=== PATIENT | female | born 1955 | race Caucasian/White ===

== ENCOUNTER 2016-04-30 06:13 | Inpatient (IN) | payer OTHER ==
[2016-04-30] MEDS ORDERED: SODIUM CHLORIDE 1,000 ML IV SCH (06:30)
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
[2016-04-30 06:43] LABS: BASOPHIL 0.3 % (0-2.0); MCHC 33.5 g/dl (32.0-36.0); MEAN CELL VOLUME 86.6 fl (80-96); MEAN PLT VOLUME 7.5 fl (7.5-11.1); NEUTROPHILS 62.1 % (42.8-82.8); PLATELET COUNT 181 K/MM3 (134-434); RDW 15.6 % (11.6-15.6); WHITE BLOOD COUNT 6.9 K/mm3 (4.0-10.0)
[2016-04-30] MEDS ORDERED: niCARdipine HCL 25 MG/10 ML AMPUL IVPB ONE (06:53)
[2016-04-30] MEDS ORDERED: ATORVASTATIN CA 80 MG TABLET (FP) PO ONE (06:55)
[2016-04-30] MEDS ORDERED: ASPIRIN 325 MG TABLET PO ONE (06:56)
[2016-04-30 06:57] LABS: INR 0.97 (0.82-1.09); PROTHROMBIN TIME (PATIENT) 10.7 SEC (9.98-11.88)
[2016-04-30] MEDS: NICARDIPINE 25 MG in DEXTROSE 5%-WATER - 240 ML IVPB SCH (07:00)
[2016-04-30 07:06] LABS: ALBUMIN 2.5 g/dl (3.4-5.0); BILIRUBIN,TOTAL 0.2 mg/dL (0.2-1.0); CALCIUM 7.7 mg/dL (8.5-10.1); CREATININE 3.1 mg/dL (0.55-1.02); TOT PROT 6.8 g/dl (6.4-8.2); TROPONIN I 0.03 ng/ml (0.00-0.05)
--- NOTE | 2016-04-30 07:41 | PDOC ---
*Physical Exam - Vital Signs Last Vital Signs Temp Pulse Resp BP Pulse Ox 98 H 21 233/107 99 04/30/16 07:09 04/30/16 07:09 04/30/16 07:09 04/30/16 07:09 - Physical Exam Comments: 04/30/16 08:43 CT abdomen and pelvis without contrast Reviewed by: Dr. Demetri Soria Impression: Right pleural effusion and lower lobe atelectasis. Limited study with no evidence of acute pathology within the abdomen or pelvis. <Connor Martinez - Last Filed: 04/30/16 08:42> - Vital Signs Last Vital Signs Temp Pulse Resp BP Pulse Ox 98 H 21 233/107 99 04/30/16 07:09 04/30/16 07:09 04/30/16 07:09 04/30/16 07:09 <Catalina Blackburn - Last Filed: 05/03/16 08:07> ED Treatment Course - LABORATORY CBC & Chemistry Diagram: 04/30/16 06:30 04/30/16 06:30 - ADDITIONAL ORDERS Additional order review: Laboratory Results 04/30/16 04/30/16 04/30/16 08:10 06:30 06:30 INR Sodium 142 Potassium 4.5 Chloride 115 H D Carbon Dioxide 17 L D Anion Gap 10 BUN 45 H D Creatinine 3.1 H D Creat Clearance w eGFR 15.38 POC Glucometer Random Glucose 104 Calcium 7.7 L Total Bilirubin 0.2 D AST 17 D ALT 14 D Alkaline Phosphatase 169 H Creatine Kinase 64 Troponin I 0.03 Total Protein 6.8 Albumin 2.5 L Triglycerides 172 H D Cholesterol 222 H Total LDL Cholesterol 141 H HDL Cholesterol 55 Blood Type O POSITIVE O POSITIVE Antibody Screen Negative Crossmatch See Detail 04/30/16 04/30/16 06:30 06:20 INR 0.97 Sodium Potassium Chloride Carbon Dioxide Anion Gap BUN Creatinine Creat Clearance w eGFR POC Glucometer 127.17829 Random Glucose Calcium Total Bilirubin AST ALT Alkaline Phosphatase Creatine Kinase Troponin I Total Protein Albumin Triglycerides Cholesterol Total LDL Cholesterol HDL Cholesterol Blood Type Antibody Screen Crossmatch 04/30/16 04/30/16 06:30 06:20 RBC 2.94 L D MCV 86.6 MCHC 33.5 RDW 15.6 MPV 7.5 Neutrophils % 62.1 Lymphocytes % 25.3 Monocytes % 8.3 Eosinophils % 4.0 D Basophils % 0.3 POC Glucometer 127.27605 - Medications Given in the ED: ED Medications Discontinued Medications Generic Name Dose Route Start Last Admin Trade Name Freq PRN Reason Stop Dose Admin Aspirin 325 mg 04/30/16 06:56 04/30/16 07:12 Asa - PO 04/30/16 06:57 Not Given ONCE ONE <JuanConnornadia Boonee - Last Filed: 04/30/16 08:42> - LABORATORY CBC & Chemistry Diagram: 05/03/16 05:10 05/03/16 05:10 - ADDITIONAL ORDERS Additional order review: Laboratory Results 04/30/16 04/30/16 04/30/16 06:30 06:30 06:30 INR 0.97 Sodium 142 Potassium 4.5 Chloride 115 H D Carbon Dioxide 17 L D Anion Gap 10 BUN 45 H D Creatinine 3.1 H D Creat Clearance w eGFR 15.38 Random Glucose 104 Calcium 7.7 L Total Bilirubin 0.2 D AST 17 D ALT 14 D Alkaline Phosphatase 169 H Creatine Kinase 64 Troponin I 0.03 Total Protein 6.8 Albumin 2.5 L Triglycerides 172 H D Cholesterol 222 H Total LDL Cholesterol 141 H HDL Cholesterol 55 Crossmatch See Detail 04/30/16 06:30 RBC 2.94 L D MCV 86.6 MCHC 33.5 RDW 15.6 MPV 7.5 Neutrophils % 62.1 Lymphocytes % 25.3 Monocytes % 8.3 Eosinophils % 4.0 D Basophils % 0.3 - Medications Given in the ED: ED Medications Discontinued Medications Generic Name Dose Route Start Last Admin Trade Name Freq PRN Reason Stop Dose Admin Aspirin 325 mg 04/30/16 06:56 04/30/16 07:12 Asa - PO 04/30/16 06:57 Not Given ONCE ONE <Catalina Blackburn - Last Filed: 05/03/16 08:07> Medical Decision Making - Medical Decision Making 04/30/16 07:29 I received this patient in sign out. This is a 61 yo F presenting to the ER with a complaint of right sided weakness Stroke protocol initiated CT negative for bleed Pt BP elevated Started on cardene drip Pt complains of abdominal pain Awaiting chemistries to send her to CT Creatinine elevated Awaiting CT CT abd and pelvic limited study non revealing Will: admit to ICU Case reviewed with Dr Le Will continue Nicardipine drip <Catalina Blackburn - Last Filed: 05/03/16 08:07> *DC/Admit/Observation/Transfer <Connor Martinez - Last Filed: 04/30/16 08:42> - Discharge Dispostion Admit: Yes <Catalina Blackburn - Last Filed: 05/03/16 08:07> Diagnosis at time of Disposition: Hypertensive emergency Cerebrovascular accident (CVA) Qualifiers: CVA mechanism: unspecified Qualified Code(s): I63.9 - Cerebral infarction, unspecified - Discharge Dispostion Condition at time of disposition: Guarded
[2016-04-30] MEDS ORDERED: ATORVASTATIN CA 80 MG TABLET (FP) ONE (11:21)
[2016-04-30 11:42] VITALS: BMI 25.4
[2016-04-30] MEDS ORDERED: PNEUMOC 13-VAL CONJ-DIP CRM/PF 0.5 ML DISP.SYRIN IM ONE (11:42)
--- NOTE | 2016-04-30 11:57 | CONSULT ---
Consult Consult Specialty:: Neurology Reason for Consultation:: Right side weakness - History of Present Illness History of Present Illness: 61 year old woman with history of hypertension, hyperlipidemia, diabetes, presents to ED with one day history of worsening right sided weakness and headache. The patient reports right sided headache occuring yesterday, followed by right sided weakness. CT head was complete which shows no evidence of acute process. Patient was not a candidate for TPA as she presented outside of the TPA window. 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 Cardio/Vascular: Yes: HTN, Hyperlipdemia Endocrine: Yes: Diabetes Insipidus - Alcohol/Substance Use Hx Alcohol Use: No History of Substance Use: denies: Cocaine, Heroin, Marijuana - Smoking History Smoking history: Never smoked Have you smoked in the past 12 months: Yes Aproximately how many cigarettes per day: 1 Home Medications - Allergies Allergies/Adverse Reactions: Allergies Allergy/AdvReac Type Severity Reaction Status Date / Time No Known Drug Allergies Allergy Verified 04/30/16 06:29 - Home Medications Home Medications: Ambulatory Orders Meclizine HCl [Antivert -] 25 mg PO TID #21 tablet 08/17/13 Unobtainable Home Med List 0 dose .ROUTE UTDICT 08/17/13 Amlodipine Besylate [Norvasc -] 5 mg PO DAILY #30 tablet 08/20/13 Folic Acid - 1 mg PO DAILY #30 tablet 08/20/13 Metformin HCl [Glucophage -] 500 mg PO BID #60 tablet 08/20/13 Multivitamins [Multivit ([facility] Formulary)] 1 tab PO DAILY #30 tab 08/20/13 Pantoprazole Sodium [Protonix -] 40 mg PO DAILY #30 tablet.ec 08/20/13 Thiamine HCl [Vitamin B1 -] 100 mg PO DAILY #30 tablet 08/20/13 Calamine/Zinc Oxide [Qc Calamine Lotion] 5 ml TP BID #177 ml 08/05/15 Hydroxyzine HCl [Atarax -] 25 mg PO TID #21 tablet 08/05/15 Review of Systems - Review of Systems Constitutional: reports: No Symptoms Eyes: reports: No Symptoms HENT: reports: No Symptoms Cardiovascular: reports: No Symptoms Respiratory: reports: No Symptoms Neurological: reports: Headache, Weakness Physical Exam Vital Signs: Vital Signs Temperature 98.4 F 04/30/16 08:54 Pulse Rate 88 04/30/16 11:29 Respiratory Rate 16 04/30/16 11:29 Blood Pressure 179/72 04/30/16 11:29 O2 Sat by Pulse Oximetry (%) 98 04/30/16 11:29 Constitutional: Yes: Calm Eyes: Yes: Conjunctiva Clear, EOM Intact HENT: Yes: Atraumatic, Normocephalic Cardiovascular: Yes: S1, S2 Respiratory: Yes: Regular Neurological: Yes: Alert, Cran Nerves II-XII Intact, Other (right arm and leg drift- right foot wound noted sensory intact to light touch) Assessment/Plan 61 year old woman with history of hypertension, hyperlipidemia, diabetes, presents to ED with one day history of worsening right sided weakness and headache. The patient reports right sided headache occuring yesterday, followed by right sided weakness. CT head was complete which shows no evidence of acute process. Patient was not a candidate for TPA as she presented outside of the TPA window. Reports some improvement in symptoms but continues to experience right arm/leg drift Right sided weakness NIHSS 2 Differential diagnosis includes stroke, versus hemiplegic migraine given headache. CT head without acute findings. Need MRI brain to differentiate Ordered MRI brain- if consistent with stroke will start aspirin 81 mg daily, atorvastatin, carotid dopplers and echocardiogram PT/OT Will follow
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
[2016-04-30] MEDS: BACITRACIN 30 GM TUBE TOPICAL OINTMENT TP SCH ×2 (14:32→21:40)
[2016-04-30] MEDS ORDERED: PNEUMOCOCCAL 23 VACCINE 0.5 ML VIAL IM ONE (15:00)
[2016-04-30] MEDS ORDERED: VANCOMYCIN 1 GRAM (PRE-DOCKED) 250 ML IVPB ONE (15:25)
--- NOTE | 2016-04-30 15:34 | HP ---
CHIEF COMPLAINT: Weakness on right side and headache. PCP: N/A HISTORY OF PRESENT ILLNESS: [facility]:[id number]. This is a 61 year old female with a significant PMH of DM, HTN, HDL, alcohol abuse who presents to the hospital complaining of weakness in right hand and leg and a headache. She has been complaining of weakness for the past month but noticed that today it was worse. She also states that it started in the morning and was associated with headache and blurry vision. She is also complaining of intermittent chest pain, sharp, 5/10, located in mid chest, worse with physical activity, alleviated with rest that is present for long time but also worse today. She is also complaining of generalized itchiness. 3 days ago she had blister on her right toe that ruptered and additionally she injured that. The pt denies palpitations, dizziness, dysuria, increased frequency, urgency, N/V, diarrhea, constipation, LOC. She denies having stroke on the past. The pt is not compliant with her medications. ER course was notable for: (1)CVT head (2)BUN 45, Cr.3.1, Hgb 8.5 (3)BP 233/107 PAST MEDICAL HISTORY: HTN, DM, HDL, alcohol abuse, vertigo PAST SURGICAL HISTORY: cyst removal in [facility] B/l Social History: Smoking:Former smoker, "3-4 cig/day for many years" Alcohol:Denies Drugs:Denies Family History: Mother: DM, HTN Father: " of natural causes" Allergies No Known Drug Allergies Allergy (Verified 04/30/16 06:29) HOME MEDICATIONS: Home Medications Medication Instructions Recorded Meclizine HCl [Antivert -] 25 mg PO TID #21 tablet 08/17/13 Unobtainable Home Med List 0 dose .ROUTE UTDICT 08/17/13 Amlodipine Besylate [Norvasc -] 5 mg PO DAILY #30 tablet 08/20/13 Folic Acid - 1 mg PO DAILY #30 tablet 08/20/13 Metformin HCl [Glucophage -] 500 mg PO BID #60 tablet 08/20/13 Multivitamins [Multivit ([facility] 1 tab PO DAILY #30 tab 08/20/13 Formulary)] Pantoprazole Sodium [Protonix -] 40 mg PO DAILY #30 tablet.ec 08/20/13 Thiamine HCl [Vitamin B1 -] 100 mg PO DAILY #30 tablet 08/20/13 Calamine/Zinc Oxide [Qc Calamine 5 ml TP BID #177 ml 08/05/15 Lotion] Hydroxyzine HCl [Atarax -] 25 mg PO TID #21 tablet 08/05/15 REVIEW OF SYSTEMS CONSTITUTIONAL: Absent: fever, chills, diaphoresis, generalized weakness, malaise, loss of appetite, weight change HEENT: blurry vision Absent: rhinorrhea, nasal congestion, throat pain, throat swelling, difficulty swallowing, mouth swelling CARDIOVASCULAR: chest pain Absent: syncope, palpitations, irregular heart rate, lightheadedness, peripheral edema RESPIRATORY: Absent: cough, shortness of breath, orthopnea, wheezing, GASTROINTESTINAL: Absent: abdominal pain, abdominal distension, nausea, vomiting, diarrhea, constipation, GENITOURINARY: Absent: dysuria, frequency, urgency, hesitancy, hematuria, flank pain, MUSCULOSKELETAL: Absent: joint swelling, back pain, SKIN: itching, rash Absent: pallor ENDOCRINE: Absent: unexplained weight gain, unexplained weight loss NEUROLOGIC: weakness and numbness on right side Absent: dizziness, unsteady gait, seizure, mental status changes, PHYSICAL EXAMINATION Vital Signs - 24 hr 04/30/16 04/30/16 04/30/16 10:27 11:29 12:00 Temperature 98.2 F Pulse Rate 88 Pulse Rate [ 90 Apical] Respiratory 20 16 Rate Blood Pressure 179/72 Blood Pressure 186/80 [Right Arm] O2 Sat by Pulse 99 98 Oximetry (%) 04/30/16 04/30/16 04/30/16 12:20 12:38 12:44 Temperature Pulse Rate 92 H 86 Pulse Rate [ Apical] Respiratory 19 19 Rate Blood Pressure 173/72 161/66 Blood Pressure [Right Arm] O2 Sat by Pulse 99 Oximetry (%) 04/30/16 04/30/16 04/30/16 12:45 13:07 13:30 Temperature Pulse Rate 88 Pulse Rate [ Apical] Respiratory 19 18 Rate Blood Pressure 145/76 146/63 Blood Pressure [Right Arm] O2 Sat by Pulse 99 Oximetry (%) 04/30/16 04/30/16 04/30/16 14:00 14:29 14:30 Temperature Pulse Rate 87 88 87 Pulse Rate [ Apical] Respiratory 19 15 Rate Blood Pressure 145/63 145/63 141/72 Blood Pressure [Right Arm] O2 Sat by Pulse Oximetry (%) GENERAL: Awake, alert, and fully oriented, in no acute distress, dishelved. HEAD: Normal with no signs of trauma. EYES: Pupils equal, round and reactive to light, extraocular movements intact, sclera anicteric, conjunctiva clear. No lid lag. EARS, NOSE, THROAT: oropharynx clear without exudates. Moist mucous membranes. NECK: supple without lymphadenopathy, JVD. LUNGS: Breath sounds equal, clear to auscultation bilaterally. No wheezes, and no crackles. No accessory muscle use. HEART: Regular rate and rhythm, normal S1 and S2 without murmur, rub or gallop. ABDOMEN: Soft, nontender, not distended, normoactive bowel sounds, no guarding, no rebound, no masses. MUSCULOSKELETAL: Limited ROM in right toe. No bony deformities. UPPER EXTREMITIES:warm, no cyanosis. No clubbing. No peripheral edema. LOWER EXTREMITIES: warm, no calf tenderness. No peripheral edema. Right toe swollen, no nail, erythema, clotted blood. NEUROLOGICAL: Slurred speech.No facial asymmetry, motor: 4/5 RUE, 5/5 LUE, 5/5 LEs. Sensation no changes. Gait not observed.DTRs: biceps and knee nl. PSYCHIATRIC: Cooperative. Good eye contact. Appropriate mood and affect. SKIN: Warm, dry, normal turgor, rash on the back and LE B/L, horizontal scar in mid abdomen-burn. CT head: No evidence of acute intracranial hemorrhage, edema, midline shift, mass effect, or skull fracture. No CT evidence of acute territorial infarction. CT abdomen/pelvis: 1. Right pleural effusion and lower lobe atelectasis. 2. Limited study with no evidence of acute pathology within the abdomen or pelvis. Please see above discussion. ASSESSMENT/PLAN: This is a 61 year old female with a significant PMH of DM, HTN, HDL, alcohol abuse who presents to the hospital complaining of weakness in right hand and leg and a headache. She is also complaining of intermittent chest pain, sharp, 5 /10, located in mid chest, worse with physical activity, alleviated with rest that is present for long time but also worse today. She is also complaining of generalized itchiness. 3 days ago she had blister on her right toe that ruptered and additionally she injured that. Possible CVA/TIA: -Neuro checks -f/u Neurology consultation -Aspirin and statins in ED, too late for TPA -speech and swallow evaluation -f/u brain MRI Hypertensive emergency: -cont Nicardipine drip now -will continue home medications when available -monitor Atypical chest pain; -HEART score:4 -f/u ECHO -f/u Cardiology consultation GABY possible CKD: -BUN and Cr. elevated, no known baseline -avoid nephrotoxic substances -f/u Nephrology consultation -Kidney US -holding IVF due to HTN Right toe infection: -Zosyn 2.25 g Q8H and Vancomycin ONCE -ID consultation -right toe x ray -wound care Microcytic anemia: -monitor Hgb, no transfusion recommended now -iron studies -FOBT ordered HDL: -cont. Atorvastatin DM type 2: -ISS ACHS -BGM ACHS -hold Metformin DVT PPH: -SCDs GI PPX; -not indicated F/E/N: No/No/Low Na Disposition: ICU Medication list from [facility] was not confirmed. Phone not in service. Problem List - Problem (1) Cerebrovascular accident (CVA) Code(s): I63.9 - CEREBRAL INFARCTION, UNSPECIFIED Qualifiers: CVA mechanism: unspecified Qualified Code(s): I63.9 - Cerebral infarction, unspecified (2) Hypertensive emergency Code(s): I10 - ESSENTIAL (PRIMARY) HYPERTENSION (3) Alcohol abuse Code(s): F10.10 - ALCOHOL ABUSE, UNCOMPLICATED (4) Diabetes Code(s): E11.9 - TYPE 2 DIABETES MELLITUS WITHOUT COMPLICATIONS (5) Abrasion of toe, right, infected Code(s): S90.414A - ABRASION, RIGHT LESSER TOE(S), INITIAL ENCOUNTER L08.9 - LOCAL INFECTION OF THE SKIN AND SUBCUTANEOUS TISSUE, UNSP Visit type - Emergency Visit Emergency Visit: Yes ED Registration Date: 04/30/16 Care time: The patient presented to the Emergency Department on the above date and was hospitalized for further evaluation of their emergent condition. - New Patient This patient is new to me today: Yes Date on this admission: 04/30/16 - Critical Care Critical Care patient: Yes Total Critical Care Time (in minutes): 30 Critical Care Statement: The care of this patient involved high complexity decision making to prevent further life threatening deterioration of the patient 's condition and/or to evalute & treat vital organ system(s) failure or risk of failure.
--- NOTE | 2016-04-30 15:48 | PN ---
Teaching Attending Note Name of Resident: Michael Plasencia ATTENDING PHYSICIAN STATEMENT I saw and evaluated the patient. I reviewed the resident's note and discussed the case with the resident. I agree with the resident's findings and plan as documented. SUBJECTIVE: In brief. 61 F, hypertension, hyperlipidemia, and diabetes. Admitted via the ER due to right sided weakness and headache that started yesterday. CT did not reveal an acute process. Patient did not meet the criteria for tPA infusion. No travel history or sick contacts. No CP or SOB. Reports some dry cough. No hemoptysis / pleuritic pain. OBJECTIVE: Intake & Output 04/27/16 04/28/16 04/29/16 04/30/16 23:59 23:59 23:59 23:59 Intake Total 240 Balance 240 Weight 120 lb 11.2 oz Last Vital Signs Temp Pulse Resp BP Pulse Ox 98.3 F 84 17 158/67 99 04/30/16 15:00 04/30/16 15:00 04/30/16 15:00 04/30/16 15:00 04/30/16 12:45 Active Medications Bacitracin (Bacitracin -) 1 applic TP BID JESSY Last Admin: 04/30/16 14:32 Dose: 1 applic Sodium Chloride (Normal Saline -) 1,000 mls @ 42 mls/hr IV ASDIR JESSY Last Admin: 04/30/16 11:06 Dose: Not Given Nicardipine HCl 25 mg/ (Dextrose) 250 mls @ 25 mls/hr IVPB TITR JESSY; 2.5 MG/HR PRN Reason: Protocol Last Titration: 04/30/16 14:29 Dose: 1.25 mg/hr Vancomycin HCl 1,000 mg/ (Dextrose) 250 mls @ 250 mls/hr IVPB ONCE ONE PRN Reason: Protocol Stop: 04/30/16 16:24 Piperacillin Sod/Tazobactam (Sod 2.25 gm/ Dextrose) 50 mls @ 100 mls/hr IVPB Q8H-IV JESSY PRN Reason: Protocol Insulin Aspart (Novolog Vial Sliding Scale -) 1 vial SQ ACHS JESSY PRN Reason: Protocol General Appearance: Yes: NAD HEENT: positive: EOMI. negative: Papilledema, left droop Neck: positive: Supple. negative: Tender, Carotid bruit, Stridor Respiratory/Chest: positive: few basilar rhonchi, negative: Respiratory Distress Cardiovascular: positive: Regular Rhythm, Regular Rate Gastrointestinal/Abdominal: positive: Normal Bowel Sounds, (+) BS Musculoskeletal: positive: Normal Inspection Extremity: positive: Normal Capillary Refill, Normal Range of Motion Integumentary: positive: areas of excoriation Neurologic: positive: Fully Oriented, Alert, Responsive, Left Facial Droop. Laboratory Results - last 24 hr 04/30/16 04/30/16 04/30/16 06:20 06:30 06:30 WBC 6.9 RBC 2.94 L D Hgb 8.5 L D Hct 25.5 L D MCV 86.6 MCHC 33.5 RDW 15.6 Plt Count 181 D MPV 7.5 Neutrophils % 62.1 Lymphocytes % 25.3 Monocytes % 8.3 Eosinophils % 4.0 D Basophils % 0.3 INR 0.97 Sodium Potassium Chloride Carbon Dioxide Anion Gap BUN Creatinine Creat Clearance w eGFR POC Glucometer [phone] Random Glucose Calcium Total Bilirubin AST ALT Alkaline Phosphatase Creatine Kinase Troponin I Total Protein Albumin Triglycerides Cholesterol Total LDL Cholesterol HDL Cholesterol Blood Type Antibody Screen Crossmatch 04/30/16 04/30/16 04/30/16 06:30 06:30 08:10 WBC RBC Hgb Hct MCV MCHC RDW Plt Count MPV Neutrophils % Lymphocytes % Monocytes % Eosinophils % Basophils % INR Sodium 142 Potassium 4.5 Chloride 115 H D Carbon Dioxide 17 L D Anion Gap 10 BUN 45 H D Creatinine 3.1 H D Creat Clearance w eGFR 15.38 POC Glucometer Random Glucose 104 Calcium 7.7 L Total Bilirubin 0.2 D AST 17 D ALT 14 D Alkaline Phosphatase 169 H Creatine Kinase 64 Troponin I 0.03 Total Protein 6.8 Albumin 2.5 L Triglycerides 172 H D Cholesterol 222 H Total LDL Cholesterol 141 H HDL Cholesterol 55 Blood Type O POSITIVE O POSITIVE Antibody Screen Negative Crossmatch See Detail ASSESSMENT AND PLAN: Suspected Acute CVA R/O complicated migraine Hypertensive Emergency HTN HPL DM Acute Renal Failure RLL Pleural Effusion / atelectasis (?) RLL PNA Permissive HTN (Cardene to manage SBP < 180) Noted empiric ABX Tristan-culture MRI Neurology consult O2 as needed Renal evaluation Glycemic control ECHO Carotid imaging Local wound care ICU monitoring Thank you. Dr Reilly CCTime 35"
[2016-04-30] MEDS: PIPERACILLIN/TAZOB 2.25 GM 50 ML IVPB SCH (16:48)
--- NOTE | 2016-04-30 17:02 | CON.CARD ---
Consult Consult Specialty:: cardiology Reason for Consultation:: HTN; ?CVA - History of Present Illness Chief Complaint: Pt no longer has a headache; +dizzy History of Present Illness: The patient is a 61 year old female with significant past medical history of hypertension, hyperlipidemia, and diabetes, who presents to the ED with 1 day of worsening right-sided weakness and left facial weakness. Patient reports she developed a headache yesterday and subsequently became dizzy with right-sided weakness and left facial weakness. She also reports slurred speech. She denies blurry vision, syncope, or numbness/tingling. The patient denies fever, chills, cough, SOB, chest pain, and palpitations. The patient denies abdominal pain, nausea, vomiting, and diarrhea. Allergies: NKDA Social History: Former ETOH abuse (quit 3 months ago); no tobacco or drug use reported. Past Surgical History: None reported PCP: None reported Brother (alcoholic) had CVA at age 25. 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: Vertigo Cardio/Vascular: Yes: HTN, Hyperlipdemia Reproductive: Yes: Postmenopausal ...: No Heme/Onc: Yes: Anemia Psych: Yes: Addictions Endocrine: Yes: Diabetes Insipidus - Alcohol/Substance Use Hx Alcohol Use: Yes History of Substance Use: denies: Cocaine, Heroin, Marijuana - Smoking History Smoking history: Never smoked Have you smoked in the past 12 months: Yes Aproximately how many cigarettes per day: 1 Home Medications - Allergies Allergies/Adverse Reactions: Allergies Allergy/AdvReac Type Severity Reaction Status Date / Time No Known Drug Allergies Allergy Verified 04/30/16 06:29 - Home Medications Home Medications: Ambulatory Orders Meclizine HCl [Antivert -] 25 mg PO TID #21 tablet 08/17/13 Unobtainable Home Med List 0 dose .ROUTE UTDICT 08/17/13 Amlodipine Besylate [Norvasc -] 5 mg PO DAILY #30 tablet 08/20/13 Folic Acid - 1 mg PO DAILY #30 tablet 08/20/13 Metformin HCl [Glucophage -] 500 mg PO BID #60 tablet 08/20/13 Multivitamins [Multivit ([facility] Formulary)] 1 tab PO DAILY #30 tab 08/20/13 Pantoprazole Sodium [Protonix -] 40 mg PO DAILY #30 tablet.ec 08/20/13 Thiamine HCl [Vitamin B1 -] 100 mg PO DAILY #30 tablet 08/20/13 Calamine/Zinc Oxide [Qc Calamine Lotion] 5 ml TP BID #177 ml 08/05/15 Hydroxyzine HCl [Atarax -] 25 mg PO TID #21 tablet 08/05/15 Family Disease History - Family Disease History Family Disease History: Other: Brother (CVA age 25; (ETOH abuse)) Review of Systems - Review of Systems Constitutional: reports: Lethargy, Weakness Eyes: reports: No Symptoms HENT: reports: No Symptoms Neck: reports: No Symptoms Cardiovascular: reports: No Symptoms Respiratory: reports: No Symptoms Gastrointestinal: reports: No Symptoms Breasts: reports: No Symptoms Reported - Risk Factors Known Risk Factors: Yes: Age, Hypertension, Physical Inactivity, Prior [place] /Emb Stroke, Other (former ETOH abuse) Vital Signs: Vital Signs Temperature 98.3 F 04/30/16 15:00 Pulse Rate 85 04/30/16 16:00 Respiratory Rate 19 04/30/16 16:00 Blood Pressure 165/66 04/30/16 16:00 O2 Sat by Pulse Oximetry (%) 99 04/30/16 12:45 Abnormal Lab Results 04/30/16 04/30/16 04/30/16 06:30 06:30 06:30 RBC 2.94 L D Hgb 8.5 L D Hct 25.5 L D Chloride 115 H D Carbon Dioxide 17 L D BUN 45 H D Creatinine 3.1 H D Calcium 7.7 L Alkaline Phosphatase 169 H Albumin 2.5 L Triglycerides 172 H D Cholesterol 222 H Total LDL Cholesterol 141 H Urine Protein Urine Glucose (UA) Urine Blood Crossmatch See Detail 04/30/16 18:07 RBC Hgb Hct Chloride Carbon Dioxide BUN Creatinine Calcium Alkaline Phosphatase Albumin Triglycerides Cholesterol Total LDL Cholesterol Urine Protein 3+ H D Urine Glucose (UA) 2+ H Urine Blood 1+ H Crossmatch Constitutional: Yes: Anxious Eyes: Yes: WNL HENT: Yes: WNL Neck: Yes: WNL Respiratory: Yes: WNL Gastrointestinal: Yes: Soft Renal/: No: Anuria JVD: No Carotid Bruit: No PMI: Non-Displaced Heart Sounds: Yes: S1, S2, S4 - Other Data Labs, Other Data: INR, PTT INR 0.97 (0.82-1.09) 04/30/16 06:30 Problem List - Problems (1) Abrasion of toe, right, infected Assessment/Plan: f/u vascular studies. Code(s): S90.414A - ABRASION, RIGHT LESSER TOE(S), INITIAL ENCOUNTER L08.9 - LOCAL INFECTION OF THE SKIN AND SUBCUTANEOUS TISSUE, UNSP (2) Alcohol abuse Assessment/Plan: pt says she stopped 3 months ago; f/u tox screen. Code(s): F10.10 - ALCOHOL ABUSE, UNCOMPLICATED (3) Cerebrovascular accident (CVA) Assessment/Plan: CT head: no acute or chronic pathology. Code(s): I63.9 - CEREBRAL INFARCTION, UNSPECIFIED Qualifiers: CVA mechanism: unspecified Qualified Code(s): I63.9 - Cerebral infarction, unspecified (4) Diabetes Code(s): E11.9 - TYPE 2 DIABETES MELLITUS WITHOUT COMPLICATIONS (5) Dizziness Code(s): R42 - DIZZINESS AND GIDDINESS (6) Hypercholesteremia Assessment/Plan: start atorvastatin Code(s): E78.0 - PURE HYPERCHOLESTEROLEMIA * DO NOT USE * (7) Hypertensive emergency Assessment/Plan: On Cardene IV. Start metoprolol PO and titrate off IV Cardene; F/u HR and BP (BP parameters per neurologist). F/u ECHO for LVEF, chamber sizes, wall thickness, valve status. Code(s): I10 - ESSENTIAL (PRIMARY) HYPERTENSION (8) Substance abuse Assessment/Plan: hx ETOH abuse (according to pt, quit 3 months ago). F/u toxicology screen. Code(s): F19.10 - OTHER PSYCHOACTIVE SUBSTANCE ABUSE, UNCOMPLICATED
--- NOTE | 2016-04-30 17:46 | CONSULT ---
Consult Consult Specialty:: Nephrology Reason for Consultation:: GABY - History of Present Illness Chief Complaint: right side weakness History of Present Illness: Pt is a 61 year old female with pmxh of HTN, DM and hyperlipidemia who presents to the ER with right sided weakness that began yesterday and has been worsening. She denies chest pain or palpitations. She was found to be hypertensive and admitted to the ICU for hypertensive emergency. She was also found to be in renal failure with elevated creatinine. Pt denies history on CKD. She denies dysuria or hematuria. She says she stopped taking all of her medications. She also has slurred speech. She denies fevers or chills. 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 Cardio/Vascular: Yes: HTN, Hyperlipdemia Renal/: Yes: Renal Inusuff ...: No Psych: Yes: Addictions Endocrine: Yes: Diabetes Mellitus - Alcohol/Substance Use Hx Alcohol Use: Yes - Smoking History Smoking history: Never smoked Have you smoked in the past 12 months: Yes Aproximately how many cigarettes per day: 1 Home Medications - Allergies Allergies/Adverse Reactions: Allergies Allergy/AdvReac Type Severity Reaction Status Date / Time No Known Drug Allergies Allergy Verified 04/30/16 06:29 - Home Medications Home Medications: Ambulatory Orders Meclizine HCl [Antivert -] 25 mg PO TID #21 tablet 08/17/13 Unobtainable Home Med List 0 dose .ROUTE UTDICT 08/17/13 Amlodipine Besylate [Norvasc -] 5 mg PO DAILY #30 tablet 08/20/13 Folic Acid - 1 mg PO DAILY #30 tablet 08/20/13 Metformin HCl [Glucophage -] 500 mg PO BID #60 tablet 08/20/13 Multivitamins [Multivit ([facility] Formulary)] 1 tab PO DAILY #30 tab 08/20/13 Pantoprazole Sodium [Protonix -] 40 mg PO DAILY #30 tablet.ec 08/20/13 Thiamine HCl [Vitamin B1 -] 100 mg PO DAILY #30 tablet 08/20/13 Calamine/Zinc Oxide [Qc Calamine Lotion] 5 ml TP BID #177 ml 08/05/15 Hydroxyzine HCl [Atarax -] 25 mg PO TID #21 tablet 08/05/15 Family Disease History - Family Disease History Family Disease History: Other: Brother (CVA age 25; (ETOH abuse)) Review of Systems - Review of Systems Constitutional: reports: Malaise. denies: Chills, Fever Eyes: reports: No Symptoms HENT: reports: No Symptoms Neck: reports: No Symptoms Cardiovascular: reports: No Symptoms Respiratory: reports: No Symptoms Gastrointestinal: reports: No Symptoms Genitourinary: reports: No Symptoms Musculoskeletal: reports: Muscle Weakness Neurological: reports: Change in Speech, Weakness Hematology/Lymphatic: reports: No Symptoms Psychiatric: reports: No Symptoms Physical Exam Vital Signs: Vital Signs Temperature 98.3 F 04/30/16 15:00 Pulse Rate 88 04/30/16 16:55 Respiratory Rate 20 04/30/16 16:55 Blood Pressure 156/62 04/30/16 16:55 O2 Sat by Pulse Oximetry (%) 99 04/30/16 12:45 Constitutional: Yes: Calm Eyes: Yes: Conjunctiva Clear HENT: Yes: Atraumatic Neck: Yes: Supple Cardiovascular: Yes: S1, S2 Respiratory: Yes: CTA Bilaterally Gastrointestinal: Yes: Normal Bowel Sounds, Soft Renal/: Yes: WNL Musculoskeletal: Yes: Other (decrease right side muscle strength) Integumentary: Yes: Laceration, Other (multiple lacerations) Neurological: Yes: Weakness Psychiatric: Yes: Oriented Labs: Laboratory Tests 08/17/13 08/17/13 08/18/13 19:00 23:44 07:00 WBC Hgb Plt Count Sodium Potassium Chloride Carbon Dioxide Anion Gap BUN Creatinine 1.5 H 1.3 0.9 D Calcium 08/19/13 08/20/13 04/30/16 08:31 06:40 06:30 WBC 6.9 Hgb 8.5 L D Plt Count 181 D Sodium Potassium Chloride Carbon Dioxide Anion Gap BUN Creatinine 0.9 0.8 Calcium 04/30/16 06:30 WBC Hgb Plt Count Sodium 142 Potassium 4.5 Chloride 115 H D Carbon Dioxide 17 L D Anion Gap 10 BUN 45 H D Creatinine 3.1 H D Calcium 7.7 L Imaging - Results Cat Scan: Report Reviewed (no evidence of CVA) Assessment/Plan Current Medications Generic Name Dose Route Start Last Admin Trade Name Freq PRN Reason Stop Dose Admin Atorvastatin Calcium 20 mg 04/30/16 22:00 Lipitor - PO HS JESSY Bacitracin 1 applic 04/30/16 13:45 04/30/16 14:32 Bacitracin - TP 1 applic BID JESSY Administration Diphenhydramine HCl 25 mg 04/30/16 16:45 04/30/16 16:48 Benadryl Injection - IVPB 25 mg DAILY JESSY Administration Sodium Chloride 1,000 mls @ 42 mls/hr 04/30/16 06:30 04/30/16 11:06 Normal Saline - IV Not Given ASDIR JESSY Nicardipine HCl 25 mg/ 250 mls @ 25 mls/hr 04/30/16 07:00 04/30/16 14:29 Dextrose IVPB 1.25 mg/hr TITR JESSY Titration Protocol 2.5 MG/HR Piperacillin Sod/Tazobactam Sod 50 mls @ 100 mls/hr 05/01/16 10:00 Zosyn 2.25gm Ivpb (Pre-Docked) IVPB Q8H-IV JESSY Protocol Piperacillin Sod/Tazobactam Sod 50 mls @ 100 mls/hr 04/30/16 17:00 04/30/16 16: 48 Zosyn 2.25gm Ivpb (Pre-Docked) IVPB 05/01/16 01:29 100 mls/hr Q8H JESSY Administration Protocol Insulin Aspart 1 vial 04/30/16 16:30 Novolog Vial Sliding Scale - SQ ACHS JESSY Protocol Metoprolol Tartrate 25 mg 04/30/16 22:00 Lopressor - PO BID JESSY Impression 1. GABY 2. likely CKD 3. hypertensive emergency 4. DM 5. hyperlipidemia 6. hx migraine 7. pleural effusion 8. r/o CVA Plan - admit to ICU - decrease MAP by 25 percent - discussed with ICU resident and ICU team - will need to resume PO meds - do not resume metformin - will need to obtain medical records from [facility] as she was last hospitalized there - neuro evaluation - MRI brain non contrast - will send prelim renal workup - will order kidney/bladder ultrasound - will order urine studies - pt appears to be non compliant with meds - stop fluids Dr David
[2016-04-30] MEDS: INSULIN SLIDING SCALE (NOVOLOG) 1 VIAL SQ SCH ×2 (18:12→22:02)
[2016-04-30] MEDS: METOPROLOL TARTRATE 25 MG TABLET (FP) PO SCH ×2 (18:16→21:40)
[2016-04-30] MEDS ORDERED: METOPROLOL TARTRATE 25 MG TABLET (FP) ONE (18:16)
--- NOTE | 2016-04-30 18:54 | PN ---
Teaching Attending Note Name of Resident: Kim Henry ATTENDING PHYSICIAN STATEMENT I saw and evaluated the patient. I reviewed the resident's note and discussed the case with the resident. I agree with the resident's findings and plan as documented. SUBJECTIVE: OBJECTIVE: Vital Signs Period Temp Pulse Resp BP Sys/Mancini Pulse Ox Last 24 Hr 98.2 F-98.4 F 84-102 15-22 141-233/62-107 97-100 ASSESSMENT AND PLAN:
[2016-04-30 19:17] LABS: URINE APPEARANCE CLEAR; URINE BILIRUBIN NEGATIVE (NEGATIVE); URINE COLOR STRAW; URINE GLUCOSE (UA) 2+ (NEGATIVE); URINE KETONE NEGATIVE (NEGATIVE); URINE LEUK ESTERASE NEGATIVE (NEGATIVE); URINE NITRITE NEGATIVE (NEGATIVE); URINE UROBILINOGEN NEGATIVE E.U./dl (0.2-1.0)
[2016-04-30 19:53] LABS: URINE BLOOD 1+ (NEGATIVE); URINE PROTEIN 3+ (NEGATIVE)
[2016-04-30 20:52] LABS: URINE RBC 19 /hpf (0-3); URINE WBC 5 /hpf (3-5)
--- NOTE | 2016-04-30 21:26 | EKG ---
Test Reason : Blood Pressure : / mmHG Vent. Rate : 093 BPM Atrial Rate : 093 BPM P-R Int : 178 ms QRS Dur : 072 ms QT Int : 362 ms P-R-T Axes : 051 -06 089 degrees QTc Int : 450 ms NORMAL SINUS RHYTHM NORMAL ECG WHEN COMPARED WITH ECG OF 17-AUG-2013 16:31, T WAVE VARIATION Confirmed by CARMEN MOTTA MD ([id number]) on 04/30/2016 9:26:44 PM Referred By: Confirmed By:CARMEN MOTTA MD
[2016-04-30] MEDS ORDERED: ATORVASTATIN CA 20 MG TABLET (FP) PO SCH (22:00)
[2016-04-30 22:33] LABS: URINE MARIJUANA THC NEGATIVE ng/ml (CUTOFF=50)
[2016-04-30] MEDS ORDERED: MIDAZOLAM HCL 2 MG/2 ML SINGLE DOSE VIAL IVPUSH ONE (22:39)
[2016-05-01] MEDS ORDERED: ACETAMINOPHEN 500 MG TABLET (FP) PO ONE ×2 (00:28→23:42)
[2016-05-01] MEDS ORDERED: diphenhydrAMINE HCL 12.5 MG/5 ML UNIT-DOSE CUPS PO ONE ×2 (00:28→00:45)
[2016-05-01] MEDS: PIPERACILLIN/TAZOB 2.25 GM 50 ML IVPB SCH ×3 (00:49→17:39)
[2016-05-01] MEDS: INSULIN SLIDING SCALE (NOVOLOG) 1 VIAL SQ SCH ×4 (06:37→21:45)
[2016-05-01 06:41] LABS: MCH 28.5 pg (25.7-33.7); MCHC 32.5 g/dl (32.0-36.0); MEAN CELL VOLUME 87.6 fl (80-96); PLATELET COUNT 162 K/MM3 (134-434); RDW 15.5 % (11.6-15.6); WHITE BLOOD COUNT 5.5 K/mm3 (4.0-10.0)
[2016-05-01 07:08] LABS: CALCIUM 7.2 mg/dL (8.5-10.1); CREATININE 3.2 mg/dL (0.55-1.02); MAGNESIUM 1.9 mg/dL (1.8-2.4); PHOSPHOROUS 4.6 mg/dL (2.5-4.9)
[2016-05-01 07:13] LABS: FERRITIN 24.276 ng/ml (6.9-282.5)
[2016-05-01] MEDS ORDERED: PIPERACILLIN/TAZOB 2.25 GM 50 ML IVPB SCH (10:00)
[2016-05-01] MEDS ORDERED: NIFEdipine E.R 60 MG TABLET (UD) PO SCH (10:00)
--- NOTE | 2016-05-01 10:29 | CONSULT ---
Admitting History and Physical - Admission History of Present Illness: Per EMR: "CHIEF COMPLAINT: Weakness on right side and headache. PCP: N/A HISTORY OF PRESENT ILLNESS: [facility]:[id number]. This is a 61 year old female with a significant PMH of DM, HTN, HDL, alcohol abuse who presents to the hospital complaining of weakness in right hand and leg and a headache. She has been complaining of weakness for the past month but noticed that today it was worse. She also states that it started in the morning and was associated with headache and blurry vision. She is also complaining of intermittent chest pain, sharp, 5/10, located in mid chest, worse with physical activity, alleviated with rest that is present for long time but also worse today. She is also complaining of generalized itchiness. 3 days ago she had blister on her right toe that ruptered and additionally she injured that. The pt denies palpitations, dizziness, dysuria, increased frequency, urgency, N/V, diarrhea, constipation, LOC. She denies having stroke on the past. The pt is not compliant with her medications." (+) Cocaine. Recent h/o ETOH abuse smoking until 3 months ago, per hx obtained by cardiology. 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 Cardiovascular: Yes: HTN, Hyperlipdemia Renal/: Yes: Renal Inusuff ...: No Heme/Onc: Yes: Anemia Psych: Yes: Addictions Endocrine: Yes: Diabetes Insipidus - Smoking History Smoking history: Never smoked Have you smoked in the past 12 months: Yes Aproximately how many cigarettes per day: 1 - Alcohol/Substance Use Hx Alcohol Use: Yes History of Substance Use: denies: Cocaine, Heroin, Marijuana History - Admission Reason For Visit: HYPERTENSIVE CRISIS,CVA - Diagnostics X-ray: Report Reviewed CT Scan: Report Reviewed MRI: Pending - General Mental Status: Alert and Oriented, Awake and Alert, Able to Follow Commands Attention: Intact Ability to Follow Directions: Good Head/Neck Control: WFL - Hearing Hearing: Normal Speech Evaluation - Communication Primary Language: ALGERIAN Communication: Yes: Language Barrier Oral Expression Ability: Yes: Mild Impairment - Speech Production Able to Make Needs Known: Yes: WNL Intelligibility: Yes: Mildly Impaired - Speech Characteristics Voice Loudness: Mildly Soft/Quiet Voice Pitch: Yes: Normal Voice Phonatory-based Quality: Yes: Weak, Dysphonia Speech Pattern: Impaired Nasal Resonance: Normal Articulation: Yes: Imprecise Voice, Other Observations: Yes: Progressively Weak Voice, Inadequate Breath Support - Language/Auditory Comprehension Follows: Yes: 2 Stage Simple Commands - Language/Verbal Expression Able to Respond to Simple Queries: Yes: WNL Able to Communicate Wants and Needs: Yes: WNL Functional Communication Status: Yes: WNL - Memory/Perception supervisor intermediates Memory: Yes: WNL Short Term Memory: Yes: WNL - Swallow Evaluation/Bedside Assessment Current Nutritional Intake: Regular, Thin Liquids Oral Secretions: Yes: WFL Dentition: Yes: Adequate Facial Symmetry at Rest: Facial Droop Right Facial Symmetry on Retraction: Facial Droop Right (slight) Pucker Lips: Droops Right (slight) Lingual Movement: Symmetric Velopharyngeal Movement: Normal Laryngeal Elevation: Impaired Laryngeal Movement: Labored,delay initiation, Reduced Velocity Labial Seal: WFL Chewing: Impaired Oral Prep Time: Increased A-P Transit: Impaired Timing of Swallow: Delayed Coughing/Throat Clear: Yes (Responsive cough with thin liquid assoc w/ c/o pain in right side of chest.) Change in Voice: Yes Recommendations - Speech Evaluation, Impression/Plan Impression: Responsive cough with thin liquid assoc w/ c/o pain in right side of chest.c/o stasis of solid food on right side of throat. Dysphonic. Mildly dyspneic with reduced respiratory capacity for speech. Oral dyskinesia, related to cocaine abuse? - Dysphagia Impressions/Plan Swallowing Skills: Impaired Dysphagia Impressions: Mild Impairment, Moderate Impairment, Ongoing Evaluation , Suspect Aspiration *Silent aspiration: cannot be R/O at bedside Dysphagia Treatment Plan: Chin Tuck/Down, Clear Pocket Food, Safe Rate, 1/2 tsp. at a time, Elevate HOB during feed Recommendations: Modified Barium Swallow (when medically stable) - Recommendations Diet Consistency: Dysphagia Minced Medication Administration: Crushed with applesauce (according to director of distance learning's guidelines) Liquids: Hortense Thick
--- NOTE | 2016-05-01 10:35 | PN ---
Progress Note, Physician Chief Complaint: Pt alert; denies chest pain or dyspnea. History of Present Illness: The patient is a 61 year old female with significant past medical history of hypertension, hyperlipidemia, and diabetes, who presents to the ED with 1 day of worsening right-sided weakness and left facial weakness. Patient reports she developed a headache yesterday and subsequently became dizzy with right-sided weakness and left facial weakness. She also reports slurred speech. She denies blurry vision, syncope, or numbness/tingling. The patient denies fever, chills, cough, SOB, chest pain, and palpitations. The patient denies abdominal pain, nausea, vomiting, and diarrhea. Allergies: NKDA Social History: Former ETOH abuse (quit 3 months ago); no tobacco or drug use reported. Past Surgical History: None reported PCP: None reported Brother (alcoholic) had CVA at age 25. - Current Medication List Current Medications: Active Medications Atorvastatin Calcium (Lipitor -) 20 mg PO HS [facility] Last Admin: 04/30/16 21:40 Dose: 20 mg Bacitracin (Bacitracin -) 1 applic TP BID JESSY Last Admin: 04/30/16 21:40 Dose: 1 applic Diphenhydramine HCl (Benadryl Injection -) 25 mg IVPB DAILY JESSY Last Admin: 05/01/16 09:55 Dose: 25 mg Nicardipine HCl 25 mg/ (Dextrose) 250 mls @ 25 mls/hr IVPB TITR JESSY; 2.5 MG/HR PRN Reason: Protocol Last Titration: 05/01/16 06:37 Dose: 0 mg/hr Piperacillin Sod/Tazobactam Sod (Zosyn 2.25gm Ivpb (Pre-Docked)) 50 mls @ 100 mls/hr IVPB Q8H-IV JESSY PRN Reason: Protocol Insulin Aspart (Novolog Vial Sliding Scale -) 1 vial SQ ACHS JESSY PRN Reason: Protocol Last Admin: 05/01/16 06:37 Dose: Not Given Nifedipine (Procardia Xl -) 60 mg PO DAILY JESSY Last Admin: 05/01/16 09:55 Dose: 60 mg - Objective Vital Signs: Vital Signs Temperature 98.9 F 05/01/16 06:00 Pulse Rate 73 05/01/16 08:00 Respiratory Rate 18 05/01/16 08:00 Blood Pressure 181/77 05/01/16 08:00 O2 Sat by Pulse Oximetry (%) 99 04/30/16 22:00 Constitutional: Yes: Anxious Eyes: Yes: WNL HENT: Yes: WNL Neck: Yes: WNL Cardiovascular: Yes: Tachycardia Respiratory: Yes: Regular Gastrointestinal: Yes: Soft ...Rectal Exam: Yes: Deferred Genitourinary: No: Anuria Breast(s): Yes: WNL Musculoskeletal: Yes: Muscle Weakness Extremities: Yes: Cool Edema: No Peripheral Pulses WNL: Yes Integumentary: Yes: WNL Neurological: Yes: Alert Psychiatric: Yes: Alert, Oriented Labs: CBC, BMP 05/01/16 05:20 05/01/16 05:20 INR, PTT INR 0.97 (0.82-1.09) 04/30/16 06:30 - ....Imaging Ultrasound: Image Reviewed (no morphological renal abnormailities) EKG: Image Reviewed (NSR; lateral T wave changes) Problem List - Problems (1) Abrasion of toe, right, infected Assessment/Plan: f/u vascular studies. Code(s): S90.414A - ABRASION, RIGHT LESSER TOE(S), INITIAL ENCOUNTER L08.9 - LOCAL INFECTION OF THE SKIN AND SUBCUTANEOUS TISSUE, UNSP (2) Alcohol abuse Assessment/Plan: pt says she stopped 3 months ago; Tox screen + for cocaine. Code(s): F10.10 - ALCOHOL ABUSE, UNCOMPLICATED (3) Cerebrovascular accident (CVA) Assessment/Plan: CT head: no acute or chronic pathology. Code(s): I63.9 - CEREBRAL INFARCTION, UNSPECIFIED Qualifiers: CVA mechanism: unspecified Qualified Code(s): I63.9 - Cerebral infarction, unspecified (4) Diabetes Code(s): E11.9 - TYPE 2 DIABETES MELLITUS WITHOUT COMPLICATIONS (5) Dizziness Code(s): R42 - DIZZINESS AND GIDDINESS (6) Hypercholesteremia Assessment/Plan: start atorvastatin Code(s): E78.0 - PURE HYPERCHOLESTEROLEMIA * DO NOT USE * (7) Hypertensive emergency Assessment/Plan: Off beta blockers due to cocaine in urine tox screen. On nifedipine; may require a second antihypertensive class to control BP. Consider hydralazine. ECHO: normal LVEF; mild LVH; mild TR and MR. Code(s): I10 - ESSENTIAL (PRIMARY) HYPERTENSION (8) Substance abuse Assessment/Plan: Urine tox screen : + for cocaine (pt denies using cocaine; was on Zoszyn). Admits now to >1 ppd cigarettes since ager 20; quit several months ago. Agree with stopping metoprolol and starting nifedipine. hx ETOH abuse (according to pt, quit several months ago). Code(s): F19.10 - OTHER PSYCHOACTIVE SUBSTANCE ABUSE, UNCOMPLICATED (9) Anemia Assessment/Plan: no overt source; f/u workup. Code(s): D64.9 - ANEMIA, UNSPECIFIED (10) Renal dysfunction Code(s): N28.9 - DISORDER OF KIDNEY AND URETER, UNSPECIFIED
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
[2016-05-01] MEDS: BACITRACIN 30 GM TUBE TOPICAL OINTMENT TP SCH ×2 (11:02→21:34)
[2016-05-01 11:51] LABS: MAGNESIUM 1.9 mg/dL (1.8-2.4)
[2016-05-01 11:57] LABS: THYROID STIMULATING HORMONE 3.44 uIU/ml (0.358-3.74)
[2016-05-01 12:00] LABS: TROPONIN I 0.05 ng/ml (0.00-0.05)
[2016-05-01] MEDS ORDERED: hydrALAZINE HCL 20 MG/ML VIAL IVPUSH PRN ×2 (12:11→14:45)
--- NOTE | 2016-05-01 12:15 | PN ---
Teaching Attending Note Name of Resident: Michael Plasencia ATTENDING PHYSICIAN STATEMENT I saw and evaluated the patient. I reviewed the resident's note and discussed the case with the resident. I agree with the resident's findings and plan as documented. SUBJECTIVE: Pt seen and examined in the ICU. Some residual right sided weakness but unable to communicate if weakness at her baseline. No headache, nausea or vomiting. Has been hypertensive, placed on cardene gtt overnight. OBJECTIVE: Last Vital Signs Temp Pulse Resp BP Pulse Ox 98.9 F 81 19 175/67 100 05/01/16 10:00 05/01/16 11:00 05/01/16 11:00 05/01/16 11:00 05/01/16 09:00 Intake & Output 04/28/16 04/29/16 04/30/16 05/01/16 23:59 23:59 23:59 23:59 Intake Total 590 530 Output Total 900 300 Balance -310 230 Weight 120 lb 11.2 oz 121 lb 8 oz Gen: NAD at rest Heart: RRR Lung: decreased breath sounds at the bases Abd: soft, nontender Ext: no edema CBC, BMP 05/01/16 05:20 05/01/16 05:20 Active Medications Atorvastatin Calcium (Lipitor -) 20 mg PO HS JESSY Last Admin: 04/30/16 21:40 Dose: 20 mg Bacitracin (Bacitracin -) 1 applic TP BID JESSY Last Admin: 05/01/16 11:02 Dose: 1 applic Diphenhydramine HCl (Benadryl Injection -) 25 mg IVPB DAILY JESSY Last Admin: 05/01/16 09:55 Dose: 25 mg Heparin Sodium (Porcine) (Heparin -) 5,000 unit SQ TID JESSY Piperacillin Sod/Tazobactam Sod (Zosyn 2.25gm Ivpb (Pre-Docked)) 50 mls @ 100 mls/hr IVPB Q8H-IV JESSY PRN Reason: Protocol Insulin Aspart (Novolog Vial Sliding Scale -) 1 vial SQ ACHS JESSY PRN Reason: Protocol Last Admin: 05/01/16 11:22 Dose: 2 units Nifedipine (Procardia Xl -) 60 mg PO DAILY JESSY Last Admin: 05/01/16 09:55 Dose: 60 mg ASSESSMENT AND PLAN: r/o CVA/TIA h/o CVA Hypertensive Urgency Acute on ?Chronic Kidney Injury Pulmonary HTN DM Hyperlipidemia +Cocaine - start procardia - hydralazine IVP PRN - for MRI brain - neuro f/u - renal artery dopplers - ASA, statin - holding beta blockers due to +cocaine - likely will need PETAR-I or ARB when renal function stabilizes - PO as tolerated - DVT prophylaxis - can monitor on floor
[2016-05-01] MEDS: NICARDIPINE 25 MG in DEXTROSE 5%-WATER - 240 ML IVPB SCH (12:27)
--- NOTE | 2016-05-01 12:52 | PN ---
Progress Note (short form) - Note Progress Note: Consult Specialty:: Neurology Reason for Consultation:: Right side weakness - History of Present Illness History of Present Illness: 61 year old woman with history of hypertension, hyperlipidemia, diabetes, presents to ED with one day history of worsening right sided weakness and headache. The patient reports right sided headache occuring yesterday, followed by right sided weakness. CT head was complete which shows no evidence of acute process. Patient was not a candidate for TPA as she presented outside of the TPA window. 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 Cardio/Vascular: Yes: HTN, Hyperlipdemia Endocrine: Yes: Diabetes Insipidus - Alcohol/Substance Use Hx Alcohol Use: No History of Substance Use: denies: Cocaine, Heroin, Marijuana - Smoking History Smoking history: Never smoked Have you smoked in the past 12 months: Yes Aproximately how many cigarettes per day: 1 Home Medications - Allergies Allergies/Adverse Reactions: Allergies Allergy/AdvReac Type Severity Reaction Status Date / Time No Known Drug Allergies Allergy Verified 04/30/16 06:29 - Home Medications Home Medications: Ambulatory Orders Meclizine HCl [Antivert -] 25 mg PO TID #21 tablet 08/17/13 Unobtainable Home Med List 0 dose .ROUTE UTDICT 08/17/13 Amlodipine Besylate [Norvasc -] 5 mg PO DAILY #30 tablet 08/20/13 Folic Acid - 1 mg PO DAILY #30 tablet 08/20/13 Metformin HCl [Glucophage -] 500 mg PO BID #60 tablet 08/20/13 Multivitamins [Multivit ([facility] Formulary)] 1 tab PO DAILY #30 tab 08/20/13 Pantoprazole Sodium [Protonix -] 40 mg PO DAILY #30 tablet.ec 08/20/13 Thiamine HCl [Vitamin B1 -] 100 mg PO DAILY #30 tablet 08/20/13 Calamine/Zinc Oxide [Qc Calamine Lotion] 5 ml TP BID #177 ml 08/05/15 Hydroxyzine HCl [Atarax -] 25 mg PO TID #21 tablet 08/05/15 Review of Systems - Review of Systems Constitutional: reports: No Symptoms Eyes: reports: No Symptoms HENT: reports: No Symptoms Cardiovascular: reports: No Symptoms Respiratory: reports: No Symptoms Neurological: reports: Headache, Weakness Physical Exam Constitutional: Yes: Calm Eyes: Yes: Conjunctiva Clear, EOM Intact HENT: Yes: Atraumatic, Normocephalic Cardiovascular: Yes: S1, S2 Respiratory: Yes: Regular Neurological: Yes: Alert, Cran Nerves II-XII Intact, Other (right arm and leg drift- right foot wound noted sensory intact to light touch) Assessment/Plan 61 year old woman with history of hypertension, hyperlipidemia, diabetes, presents to ED with one day history of worsening right sided weakness and headache. The patient reports right sided headache occuring yesterday, followed by right sided weakness. CT head was complete which shows no evidence of acute process. Patient was not a candidate for TPA as she presented outside of the TPA window. Reports some improvement in symptoms but continues to experience right arm/leg drift Right sided weakness NIHSS 2 Differential diagnosis includes stroke, versus hemiplegic migraine given headache. Unclear chronicity of symptoms. CT head without acute findings. MRI brain pending Continue aspirin and statin Echo normal LV size PT/OT Supportive care
--- NOTE | 2016-05-01 13:10 | PN ---
Progress Note, Physician History of Present Illness: Pt seen and examined at bedside. She is awake and alert. She denies chest pain or shortness of breath. - Current Medication List Current Medications: Active Medications Atorvastatin Calcium (Lipitor -) 20 mg PO HS [facility] Last Admin: 04/30/16 21:40 Dose: 20 mg Bacitracin (Bacitracin -) 1 applic TP BID [facility] Last Admin: 05/01/16 11:02 Dose: 1 applic Diphenhydramine HCl (Benadryl Injection -) 25 mg IVPB DAILY [facility] Last Admin: 05/01/16 09:55 Dose: 25 mg Heparin Sodium (Porcine) (Heparin -) 5,000 unit SQ TID JESSY Hydralazine HCl (Apresoline Injection -) 20 mg IVPUSH Q6H PRN PRN Reason: HYPERTENSION Piperacillin Sod/Tazobactam Sod (Zosyn 2.25gm Ivpb (Pre-Docked)) 50 mls @ 100 mls/hr IVPB Q8H-IV JESSY PRN Reason: Protocol Insulin Aspart (Novolog Vial Sliding Scale -) 1 vial SQ ACHS JESSY PRN Reason: Protocol Last Admin: 05/01/16 11:22 Dose: 2 units Nifedipine (Procardia Xl -) 60 mg PO DAILY [facility] Last Admin: 05/01/16 09:55 Dose: 60 mg - Objective Vital Signs: Vital Signs Temperature 98.9 F 05/01/16 10:00 Pulse Rate 84 05/01/16 12:00 Respiratory Rate 18 05/01/16 12:00 Blood Pressure 179/64 05/01/16 12:00 O2 Sat by Pulse Oximetry (%) 97 05/01/16 12:51 Constitutional: Yes: Calm Eyes: Yes: Conjunctiva Clear HENT: Yes: Atraumatic Cardiovascular: Yes: S1, S2 Respiratory: Yes: CTA Bilaterally Gastrointestinal: Yes: Soft Genitourinary: Yes: WNL Extremities: Yes: WNL Edema: No Integumentary: Yes: Laceration Neurological: Yes: Oriented Labs: CBC, BMP 05/01/16 05:20 05/01/16 05:20 INR, PTT INR 0.97 (0.82-1.09) 04/30/16 06:30 - ....Imaging Ultrasound: Report Reviewed Assessment/Plan Current Medications Generic Name Dose Route Start Last Admin Trade Name Freq PRN Reason Stop Dose Admin Atorvastatin Calcium 20 mg 04/30/16 22:00 04/30/16 21:40 Lipitor - PO 20 mg HS JESSY Administration Bacitracin 1 applic 04/30/16 13:45 05/01/16 11:02 Bacitracin - TP 1 applic BID JESSY Administration Diphenhydramine HCl 25 mg 04/30/16 16:45 05/01/16 09:55 Benadryl Injection - IVPB 25 mg DAILY JESSY Administration Heparin Sodium (Porcine) 5,000 unit 05/01/16 14:00 Heparin - SQ TID JESSY Hydralazine HCl 20 mg 05/01/16 12:11 Apresoline Injection - IVPUSH Q6H PRN HYPERTENSION Piperacillin Sod/Tazobactam Sod 50 mls @ 100 mls/hr 05/01/16 10:00 Zosyn 2.25gm Ivpb (Pre-Docked) IVPB Q8H-IV JESSY Protocol Insulin Aspart 1 vial 04/30/16 16:30 05/01/16 11:22 Novolog Vial Sliding Scale - SQ 2 units ACHS JESSY Administration Protocol Nifedipine 60 mg 05/01/16 10:00 05/01/16 09:55 Procardia Xl - PO 60 mg DAILY JESSY Administration Laboratory Tests 04/30/16 05/01/16 18:07 05:20 Cocaine Screen Positive AVIS Screen Pending Hepatitis A Ab Total Pending Hep Bs Antigen Pending Hep Bs Antibody Pending Hep B Core Total Ab Pending Impression 1. GABY 2. likely CKD 3. hypertensive emergency 4. DM 5. hyperlipidemia 6. hx migraine 7. pleural effusion 8. r/o CVA 9. positive cocaine in urine Plan - cont PO meds - monitor blood pressure - goal is a gradual decrease in BP - wound not restart metformin, not that she was taking it - discussed with ICU resident and ICU team - will need to obtain medical records from [facility] as she was last hospitalized there - MRI brain non contrast - renal ultrasound reviewed - renal workup in progress - pt denies cocaine use - pt appears to be non compliant with meds - ICU chart reviewed - will follow pt Dr David
--- NOTE | 2016-05-01 13:39 | CONSULT ---
Consult Consult Specialty:: infectious diseases Reason for Consultation:: cellulitis of the rt great toe - History of Present Illness History of Present Illness: 61 year old female with a significant PMH of DM, HTN, HDL, alcohol abuse who presents to the hospital complaining of weakness in right hand and leg and a headache. She has been complaining of weakness for the past month but noticed that today it was worse. She also states that it started in the morning and was associated with headache and blurry vision. She is also complaining of intermittent chest pain, sharp, 5/10, located in mid chest, worse with physical activity, alleviated with rest that is present for long time but also worse today. She is also complaining of generalized itchiness. 3 days ago she had blister on her right toe that ruptered and additionally she injured that. The pt denies palpitations, dizziness, dysuria, increased frequency, urgency, N/V, diarrhea, constipation, LOC. She denies having stroke on the past. The pt is not compliant with her medications. patients history taken from the chart as patient not able to give history patient came with right sided headache occuring yesterday, followed by right sided weakness. CT head was complete which shows no evidence of acute process. Patient was not a candidate for TPA as she presented outside of the TPA window. Reports some improvement in symptoms but continues to experience right arm/leg drift patient was evaluated by neurology according to further information it seems patient has stubbed or injured her great toe and developed swelling and pain and was associated with bleeding of the same - History Source History Provided By: Medical Record Limitations to Obtaining History: Clinical Condition - Past Medical History TIPPLE OILER: Yes: Vertigo Cardio/Vascular: Yes: HTN, Hyperlipdemia Renal/: Yes: Renal Inusuff ...: No Psych: Yes: Addictions Endocrine: Yes: Diabetes Insipidus - Alcohol/Substance Use Hx Alcohol Use: Yes History of Substance Use: denies: Cocaine, Heroin, Marijuana - Smoking History Smoking history: Never smoked Have you smoked in the past 12 months: Yes Aproximately how many cigarettes per day: 1 Home Medications - Allergies Allergies/Adverse Reactions: Allergies Allergy/AdvReac Type Severity Reaction Status Date / Time No Known Drug Allergies Allergy Verified 04/30/16 06:29 - Home Medications Home Medications: Ambulatory Orders Meclizine HCl [Antivert -] 25 mg PO TID #21 tablet 08/17/13 Unobtainable Home Med List 0 dose .ROUTE UTDICT 08/17/13 Amlodipine Besylate [Norvasc -] 5 mg PO DAILY #30 tablet 08/20/13 Folic Acid - 1 mg PO DAILY #30 tablet 08/20/13 Metformin HCl [Glucophage -] 500 mg PO BID #60 tablet 08/20/13 Multivitamins [Multivit ([facility] Form[facility])] 1 tab PO DAILY #30 tab 08/20/13 Pantoprazole Sodium [Protonix -] 40 mg PO DAILY #30 tablet.ec 08/20/13 Thiamine HCl [Vitamin B1 -] 100 mg PO DAILY #30 tablet 08/20/13 Calamine/Zinc Oxide [Qc Calamine Lotion] 5 ml TP BID #177 ml 08/05/15 Hydroxyzine HCl [Atarax -] 25 mg PO TID #21 tablet 08/05/15 Family Disease History - Family Disease History Family Disease History: Other: Brother (CVA age 25; (ETOH abuse)) Review of Systems - Review of Systems Constitutional: reports: No Symptoms Eyes: reports: No Symptoms HENT: reports: No Symptoms Neck: reports: No Symptoms Cardiovascular: reports: No Symptoms Respiratory: reports: No Symptoms Gastrointestinal: reports: No Symptoms Genitourinary: reports: No Symptoms Integumentary: reports: Erythema, Wound Neurological: reports: Other (stroke) Hematology/Lymphatic: reports: No Symptoms Psychiatric: reports: No Symptoms Physical Exam Vital Signs: Vital Signs Temperature 98.9 F 05/01/16 10:00 Pulse Rate 84 05/01/16 12:00 Respiratory Rate 18 05/01/16 12:00 Blood Pressure 179/64 05/01/16 12:00 O2 Sat by Pulse Oximetry (%) 97 05/01/16 12:51 Constitutional: Yes: No Distress, Calm Eyes: Yes: Conjunctiva Clear Cardiovascular: Yes: Regular Rate and Rhythm Respiratory: Yes: Regular, CTA Bilaterally Gastrointestinal: Yes: Normal Bowel Sounds, Soft Musculoskeletal: Yes: Joint Stiffness Extremities: Yes: Other (injury to the great toes) Wound/Incision: Yes: Clean/Dry, Other Neurological: Yes: Alert Psychiatric: Yes: Alert Labs: CBC, BMP 05/01/16 05:20 05/01/16 05:20 Imaging - Results Chest X-ray: Report Reviewed, Image Reviewed Cat Scan: Report Reviewed, Image Reviewed Assessment/Plan patient evaluated looked at the toe also of note is that patient patient has lymphangitis the toe does not look very bad injury site noted 1. GABY 2. likely CKD 3. hypertensive emergency 4. DM 5. hyperlipidemia 6. hx migraine 7. pleural effusion 8. r/o CVA 9. positive cocaine in urine lymphangitis cellulitis of the toe plan continue close monitoring as per neuro we will give zosyn for one more day will switch her to oral tomorrow rest continue as per icu and neuro cc time 40 min
[2016-05-01] MEDS ORDERED: HEPARIN NA (PORCINE) 5,000 UNITS/ML 1ML VIAL SQ SCH (14:00)
--- NOTE | 2016-05-01 16:04 | EKG ---
Test Reason : Blood Pressure : / mmHG Vent. Rate : 069 BPM Atrial Rate : 069 BPM P-R Int : 148 ms QRS Dur : 074 ms QT Int : 418 ms P-R-T Axes : 029 -03 152 degrees QTc Int : 447 ms NORMAL SINUS RHYTHM T WAVE ABNORMALITY, CONSIDER LATERAL ISCHEMIA ABNORMAL ECG WHEN COMPARED WITH ECG OF 30-APR-2016 06:48, T WAVE INVERSION NOW EVIDENT IN LATERAL LEADS Confirmed by DONNA KWON, SELVIN ([id number]) on 05/01/2016 4:04:22 PM Referred By: Desmond ARREOLA Confirmed By:SELVIN THOMPSON MD
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
[2016-05-01 16:37] LABS: MCH 28.3 pg (25.7-33.7); MCHC 32.7 g/dl (32.0-36.0); MEAN CELL VOLUME 86.7 fl (80-96); MEAN PLT VOLUME 7.9 fl (7.5-11.1); PLATELET COUNT 161 K/MM3 (134-434); RDW 15.4 % (11.6-15.6); WHITE BLOOD COUNT 5.1 K/mm3 (4.0-10.0)
--- NOTE | 2016-05-01 17:23 | PN ---
Teaching Attending Note Name of Resident: Kim Henry ATTENDING PHYSICIAN STATEMENT I saw and evaluated the patient. I reviewed the resident's note and discussed the case with the resident. I agree with the resident's findings and plan as documented. SUBJECTIVE: Vital Signs - 24 hr 04/30/16 04/30/16 04/30/16 18:00 18:30 19:00 Temperature Pulse Rate 90 90 79 Respiratory 22 18 Rate Blood Pressure 164/68 164/68 166/70 O2 Sat by Pulse Oximetry (%) 04/30/16 04/30/16 04/30/16 20:00 20:37 21:00 Temperature 98.0 F Pulse Rate 77 80 Respiratory 18 18 22 Rate Blood Pressure 162/66 188/74 O2 Sat by Pulse 99 Oximetry (%) 04/30/16 05/01/16 05/01/16 22:00 00:00 02:00 Temperature 98.9 F Pulse Rate 81 77 83 Respiratory 18 20 18 Rate Blood Pressure 169/66 176/66 116/53 O2 Sat by Pulse 99 Oximetry (%) 05/01/16 05/01/16 05/01/16 03:00 04:00 05:00 Temperature 98.6 F Pulse Rate 72 73 70 Respiratory 15 16 18 Rate Blood Pressure 150/68 156/69 156/58 O2 Sat by Pulse Oximetry (%) 05/01/16 05/01/16 05/01/16 06:00 08:00 09:00 Temperature 98.9 F Pulse Rate 71 73 Respiratory 18 18 20 Rate Blood Pressure 173/70 181/77 O2 Sat by Pulse 100 Oximetry (%) 05/01/16 05/01/16 05/01/16 10:00 11:00 12:00 Temperature 98.9 F Pulse Rate 78 81 84 Respiratory 20 19 18 Rate Blood Pressure 191/81 175/67 179/64 O2 Sat by Pulse Oximetry (%) 05/01/16 05/01/16 05/01/16 12:51 14:00 15:00 Temperature 99.0 F Pulse Rate 88 86 Respiratory 18 19 Rate Blood Pressure 110/54 108/56 O2 Sat by Pulse 97 Oximetry (%) 05/01/16 16:00 Temperature Pulse Rate 85 Respiratory 19 Rate Blood Pressure 114/55 O2 Sat by Pulse Oximetry (%) OBJECTIVE: Constitutional: Yes: Calm, cooperative Eyes: Yes: Conjunctiva Clear, EOM Intact HENT: Yes: Atraumatic, Normocephalic Cardiovascular: Yes: S1, S2 Respiratory: Yes: Regular Neurological: Yes: Alert, Cran Nerves II-XII Intact, Other (right arm and leg drift- right foot wound noted sensory intact to light touch) Ext: right great toe ecchymosis, nail is absent , small area of skin breakdown on plantar side of right great toe. CBC, BMP 05/01/16 15:15 05/01/16 05:20 ASSESSMENT AND PLAN: 61 year old woman with history of hypertension, hyperlipidemia, diabetes, presented to ED with worsening right sided weakness and headache. The patient reports right sided headache, followed by right sided weakness. CT head in ER shows no evidence of acute process. Patient was not a candidate for TPA as she presented outside of the TPA window 1. Right sided weakness, CT shows no acute findings - MRI -c/w ASA -c/ statin 2. Right great toe cellulitis - on Zosyn - will switch to PO tomorrow 3. Anemia -transfuse 1 unit -f/u cbc 4 HTN urgency - resolved. BP improved and now on oral meds c/w telemetry 5. Chest pain -resolved , no acute events on tele, cocaine positive UDS - troponin negative
[2016-05-01] MEDS: ATORVASTATIN CA 20 MG TABLET (FP) PO SCH (21:33)
[2016-05-01] MEDS: HEPARIN NA (PORCINE) 5,000 UNITS/ML 1ML VIAL SQ SCH (21:33)
[2016-05-02] MEDS: PIPERACILLIN/TAZOB 2.25 GM 50 ML IVPB SCH ×3 (01:14→16:59)
[2016-05-02 06:10] LABS: SERUM IRON 28 ug/dL (27-159); TOTAL IRON BINDING CAPACITY 237 ug/dL (250-450); UIBC 209 ug/dL (131-425)
[2016-05-02] MEDS: HEPARIN NA (PORCINE) 5,000 UNITS/ML 1ML VIAL SQ SCH ×3 (06:12→21:26)
[2016-05-02] MEDS: INSULIN SLIDING SCALE (NOVOLOG) 1 VIAL SQ SCH ×4 (06:13→21:32)
[2016-05-02 06:40] LABS: BASOPHIL 0.5 % (0-2.0); EOSINOPHIL 5.4 % (0-4.5); MCH 28.8 pg (25.7-33.7); MEAN CELL VOLUME 87.4 fl (80-96); MEAN PLT VOLUME 8.1 fl (7.5-11.1); NEUTROPHILS 59.3 % (42.8-82.8); PLATELET COUNT 141 K/MM3 (134-434); RDW 15.3 % (11.6-15.6)
[2016-05-02 07:14] LABS: ALBUMIN 2.1 g/dl (3.4-5.0); CALCIUM 7.3 mg/dL (8.5-10.1); CREATININE 3.4 mg/dL (0.55-1.02); MAGNESIUM 1.9 mg/dL (1.8-2.4); PHOSPHOROUS 5.3 mg/dL (2.5-4.9)
[2016-05-02 07:16] LABS: BILIRUBIN,TOTAL 0.5 mg/dL (0.2-1.0)
[2016-05-02 08:11] LABS: TRANSFERRIN 224 mg/dL (200-370)
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
[2016-05-02] MEDS: hydrALAZINE HCL 25 MG TABLET (FP) PO SCH ×2 (09:15→21:26)
[2016-05-02] MEDS: NIFEdipine E.R 60 MG TABLET (UD) PO SCH (09:15)
[2016-05-02] MEDS ORDERED: PT OWN MED DRAWER 7, Y5N ONE (09:15)
[2016-05-02] MEDS: BACITRACIN 30 GM TUBE TOPICAL OINTMENT TP SCH ×2 (09:16→21:27)
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
[2016-05-02] MEDS: ASPIRIN 81 MG CHEWABLE TABLETS PO SCH (11:03)
--- NOTE | 2016-05-02 11:43 | PN ---
Progress Note (short form) - Note Progress Note: Consult Specialty:: Neurology Reason for Consultation:: Right side weakness - History of Present Illness History of Present Illness: 61 year old woman with history of hypertension, hyperlipidemia, diabetes, presents to ED with one day history of worsening right sided weakness and headache. The patient reports right sided headache, followed by right sided weakness. CT head was complete which shows no evidence of acute process. Patient was not a candidate for TPA as she presented outside of the TPA window. 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 Cardio/Vascular: Yes: HTN, Hyperlipdemia Endocrine: Yes: Diabetes Insipidus - Alcohol/Substance Use Hx Alcohol Use: No History of Substance Use: denies: Cocaine, Heroin, Marijuana - Smoking History Smoking history: Never smoked Have you smoked in the past 12 months: Yes Aproximately how many cigarettes per day: 1 Home Medications - Allergies Allergies/Adverse Reactions: Allergies Allergy/AdvReac Type Severity Reaction Status Date / Time No Known Drug Allergies Allergy Verified 04/30/16 06:29 - Home Medications Home Medications: Ambulatory Orders Meclizine HCl [Antivert -] 25 mg PO TID #21 tablet 08/17/13 Unobtainable Home Med List 0 dose .ROUTE UTDICT 08/17/13 Amlodipine Besylate [Norvasc -] 5 mg PO DAILY #30 tablet 08/20/13 Folic Acid - 1 mg PO DAILY #30 tablet 08/20/13 Metformin HCl [Glucophage -] 500 mg PO BID #60 tablet 08/20/13 Multivitamins [Multivit ([facility] Formulary)] 1 tab PO DAILY #30 tab 08/20/13 Pantoprazole Sodium [Protonix -] 40 mg PO DAILY #30 tablet.ec 08/20/13 Thiamine HCl [Vitamin B1 -] 100 mg PO DAILY #30 tablet 08/20/13 Calamine/Zinc Oxide [Qc Calamine Lotion] 5 ml TP BID #177 ml 08/05/15 Hydroxyzine HCl [Atarax -] 25 mg PO TID #21 tablet 08/05/15 Review of Systems - Review of Systems Constitutional: reports: No Symptoms Eyes: reports: No Symptoms HENT: reports: No Symptoms Cardiovascular: reports: No Symptoms Respiratory: reports: No Symptoms Neurological: reports: Headache, Weakness Physical Exam Constitutional: Yes: Calm Eyes: Yes: Conjunctiva Clear, EOM Intact HENT: Yes: Atraumatic, Normocephalic Cardiovascular: Yes: S1, S2 Respiratory: Yes: Regular Neurological: Yes: Alert, Cran Nerves II-XII Intact, Other (right arm and leg drift- right foot wound noted sensory intact to light touch) Assessment/Plan 61 year old woman with history of hypertension, hyperlipidemia, diabetes, presents to ED with one day history of worsening right sided weakness and headache. The patient reports right sided headache occuring yesterday, followed by right sided weakness. CT head was complete which shows no evidence of acute process. Patient was not a candidate for TPA as she presented outside of the TPA window. Reports some improvement in symptoms but continues to experience right arm/leg drift Right sided weakness, left cerebral infarct? NIHSS 2 MRI brain - L cerebral peduncle infarct, possible stroke, contrast suggested to exclude mass or demyelinating disease Will hold off on contrast study given elevated Cr- recommend repeating MRI brain in one to two months to further assess findings Continue aspirin and statin Echo normal LV size Carotid doppler pending PT/OT Supportive care
--- NOTE | 2016-05-02 12:10 | PN ---
Progress Note, PROMOTIONS ASSISTANT - Note Progress Note: Selected Entries 05/01/16 05/01/16 05/01/16 03:00 06:00 10:00 Breakfast Lunch Temperature 98.6 F 98.9 F 98.9 F 05/01/16 05/01/16 05/01/16 14:00 17:00 20:00 Breakfast 25% Lunch 75% Temperature 99.0 F 98 F 99.4 F 05/01/16 05/02/16 05/02/16 22:00 02:00 06:00 Breakfast Lunch Temperature 99.5 F 99.3 F 99.1 F 05/02/16 05/02/16 09:06 10:00 Breakfast 50% Lunch Temperature 98.6 F Laboratory Tests 04/30/16 05/01/16 05/02/16 06:30 05:20 05:10 WBC 6.9 5.5 6.0 Improved respiratory capacity for sapeech. Quite restless today, per staff. Tolerating chopped diet and nectar thick liquids. Swallowing reassessed. Responsive cough again noted with thin water.Holding right side with c/o pain when coughing. Continue diet as ordered. MBS to upgrade diet with safety.
[2016-05-02] MEDS ORDERED: PERMETHRIN 5% TOPICAL CREAM 60 GM TUBE TP ONE (13:44)
--- NOTE | 2016-05-02 14:25 | PN ---
Teaching Attending Note Name of Resident: Michael Plasencia ATTENDING PHYSICIAN STATEMENT I saw and evaluated the patient. I reviewed the resident's note and discussed the case with the resident. I agree with the resident's findings and plan as documented. SUBJECTIVE: Patient seen and examined in the ICU. Awake and alert. Reports some non- specific right sided abdominal discomfort (due to CVA ?). No CP or SOB. Intake & Output 04/29/16 04/30/16 05/01/16 05/02/16 23:59 23:59 23:59 23:59 Intake Total 590 980 460 Output Total 900 1200 700 Balance -310 -220 -240 Weight 120 lb 11.2 oz 121 lb 8 oz 123 lb 9.6 oz Last Vital Signs Temp Pulse Resp BP Pulse Ox 98.6 F 98 H 23 106/58 100 05/02/16 10:00 05/02/16 10:00 05/02/16 10:00 05/02/16 10:00 05/02/16 09:09 Active Medications Aspirin (Asa -) 81 mg PO DAILY [facility] Last Admin: 05/02/16 11:03 Dose: 81 mg Atorvastatin Calcium (Lipitor -) 20 mg PO HS [facility] Last Admin: 05/01/16 21:33 Dose: 20 mg Bacitracin (Bacitracin -) 1 applic TP BID [facility] Last Admin: 05/02/16 09:16 Dose: 1 applic Diphenhydramine HCl (Benadryl Injection -) 25 mg IVPB DAILY [facility] Last Admin: 05/02/16 09:16 Dose: 25 mg Folic Acid (Folic Acid -) 1 mg PO DAILY [facility] Heparin Sodium (Porcine) (Heparin -) 5,000 unit SQ TID [facility] Last Admin: 05/02/16 06:12 Dose: 5,000 unit Hydralazine HCl (Apresoline -) 25 mg PO BID [facility] Last Admin: 05/02/16 09:15 Dose: 25 mg Piperacillin Sod/Tazobactam Sod (Zosyn 2.25gm Ivpb (Pre-Docked)) 50 mls @ 100 mls/hr IVPB Q8H-IV JESSY PRN Reason: Protocol Last Admin: 05/02/16 09:15 Dose: 100 mls/hr Insulin Aspart (Novolog Vial Sliding Scale -) 1 vial SQ ACHS JESSY PRN Reason: Protocol Last Admin: 05/02/16 11:23 Dose: 2 units Multivitamins/Minerals/Vitamin C (Tab-A-Vit -) 1 tab PO DAILY JESSY Nifedipine (Procardia Xl -) 60 mg PO DAILY JESSY Last Admin: 05/02/16 09:15 Dose: 60 mg Permethrin (Elimite -) 1 applic TP ONCE ONE Stop: 05/02/16 13:45 Thiamine HCl (Vitamin B1 -) 100 mg PO DAILY JESSY General Appearance: Yes: NAD HEENT: positive: EOMI. Neck: positive: Supple. negative: Tender, Carotid bruit, Stridor Respiratory/Chest: positive: few basilar rhonchi, negative: Respiratory Distress Cardiovascular: positive: Regular Rhythm, Regular Rate Gastrointestinal/Abdominal: positive: Normal Bowel Sounds, (+) BS Musculoskeletal: positive: Normal Inspection Extremity: positive: Normal Capillary Refill, Normal Range of Motion Integumentary: positive: areas of excoriation Neurologic: positive: Fully Oriented, Alert, Responsive, Left Facial Droop. Laboratory Results - last 24 hr 04/30/16 04/30/16 04/30/16 06:30 08:10 17:56 WBC RBC Hgb Hct MCV MCHC RDW Plt Count MPV Neutrophils % Lymphocytes % Monocytes % Eosinophils % Basophils % Sodium Potassium Chloride Carbon Dioxide Anion Gap BUN Creatinine Creat Clearance w eGFR POC Glucometer 167.97149 Random Glucose Calcium Phosphorus Magnesium Iron TIBC Iron Saturation Transferrin Total Bilirubin AST ALT Alkaline Phosphatase Total Protein Albumin Blood Type O POSITIVE Antibody Screen Negative Crossmatch See Detail See Detail 04/30/16 05/01/16 05/01/16 22:01 05:20 06:34 WBC RBC Hgb Hct MCV MCHC RDW Plt Count MPV Neutrophils % Lymphocytes % Monocytes % Eosinophils % Basophils % Sodium Potassium Chloride Carbon Dioxide Anion Gap BUN Creatinine Creat Clearance w eGFR POC Glucometer 155.31292 113.86010 Random Glucose Calcium Phosphorus Magnesium Iron 28 TIBC 237 L Iron Saturation 12 L Transferrin 224 Total Bilirubin AST ALT Alkaline Phosphatase Total Protein Albumin Blood Type Antibody Screen Crossmatch 05/01/16 05/01/16 05/01/16 11:08 15:15 17:18 WBC 5.1 RBC 2.62 L Hgb 7.4 L Hct 22.7 L MCV 86.7 MCHC 32.7 RDW 15.4 Plt Count 161 MPV 7.9 Neutrophils % Lymphocytes % Monocytes % Eosinophils % Basophils % Sodium Potassium Chloride Carbon Dioxide Anion Gap BUN Creatinine Creat Clearance w eGFR POC Glucometer 194.47747 169.21707 Random Glucose Calcium Phosphorus Magnesium Iron TIBC Iron Saturation Transferrin Total Bilirubin AST ALT Alkaline Phosphatase Total Protein Albumin Blood Type Antibody Screen Crossmatch 05/01/16 05/02/16 05/02/16 21:42 05:10 05:10 WBC 6.0 RBC 3.08 L Hgb 8.9 L D Hct 26.9 L D MCV 87.4 MCHC 33.0 RDW 15.3 Plt Count 141 MPV 8.1 Neutrophils % 59.3 Lymphocytes % 26.1 Monocytes % 8.7 Eosinophils % 5.4 H Basophils % 0.5 Sodium 144 Potassium 4.8 Chloride 119 H Carbon Dioxide 17 L Anion Gap 8 BUN 46 H Creatinine 3.4 H Creat Clearance w eGFR 13.82 POC Glucometer 139.39061 Random Glucose 79 Calcium 7.3 L Phosphorus 5.3 H Magnesium 1.9 Iron TIBC Iron Saturation Transferrin Total Bilirubin 0.5 D AST 21 D ALT 13 Alkaline Phosphatase 148 H Total Protein 6.0 L Albumin 2.1 L Blood Type Antibody Screen Crossmatch 05/02/16 06:09 WBC RBC Hgb Hct MCV MCHC RDW Plt Count MPV Neutrophils % Lymphocytes % Monocytes % Eosinophils % Basophils % Sodium Potassium Chloride Carbon Dioxide Anion Gap BUN Creatinine Creat Clearance w eGFR POC Glucometer 127.27583 Random Glucose Calcium Phosphorus Magnesium Iron TIBC Iron Saturation Transferrin Total Bilirubin AST ALT Alkaline Phosphatase Total Protein Albumin Blood Type Antibody Screen Crossmatch ASSESSMENT AND PLAN: Suspected Acute CVA R/O complicated migraine Hypertensive Emergency HTN HPL DM Acute Renal Failure RLL Pleural Effusion / atelectasis (?) RLL PNA O2 as needed Glycemic control Check carotid imaging Local wound care PT Dr Reilly
--- NOTE | 2016-05-02 15:31 | PN ---
Progress Note, Physician History of Present Illness: Pt seen and examined at bedside. She is awake and alert. She appears comfortable. - Current Medication List Current Medications: Active Medications Aspirin (Asa -) 81 mg PO DAILY [facility] Last Admin: 05/02/16 11:03 Dose: 81 mg Atorvastatin Calcium (Lipitor -) 20 mg PO HS [facility] Last Admin: 05/01/16 21:33 Dose: 20 mg Bacitracin (Bacitracin -) 1 applic TP BID [facility] Last Admin: 05/02/16 09:16 Dose: 1 applic Diphenhydramine HCl (Benadryl Injection -) 25 mg IVPB DAILY [facility] Last Admin: 05/02/16 09:16 Dose: 25 mg Folic Acid (Folic Acid -) 1 mg PO DAILY [facility] Heparin Sodium (Porcine) (Heparin -) 5,000 unit SQ TID [facility] Last Admin: 05/02/16 06:12 Dose: 5,000 unit Hydralazine HCl (Apresoline -) 25 mg PO BID [facility] Last Admin: 05/02/16 09:15 Dose: 25 mg Piperacillin Sod/Tazobactam Sod (Zosyn 2.25gm Ivpb (Pre-Docked)) 50 mls @ 100 mls/hr IVPB Q8H-IV [facility] PRN Reason: Protocol Last Admin: 05/02/16 09:15 Dose: 100 mls/hr Insulin Aspart (Novolog Vial Sliding Scale -) 1 vial SQ ACHS [facility] PRN Reason: Protocol Last Admin: 05/02/16 11:23 Dose: 2 units Multivitamins/Minerals/Vitamin C (Tab-A-Vit -) 1 tab PO DAILY [facility] Nifedipine (Procardia Xl -) 60 mg PO DAILY [facility] Last Admin: 05/02/16 09:15 Dose: 60 mg Thiamine HCl (Vitamin B1 -) 100 mg PO DAILY [facility] - Objective Vital Signs: Vital Signs Temperature 98.6 F 05/02/16 10:00 Pulse Rate 98 H 05/02/16 10:00 Respiratory Rate 23 05/02/16 10:00 Blood Pressure 106/58 05/02/16 10:00 O2 Sat by Pulse Oximetry (%) 100 05/02/16 09:09 Constitutional: Yes: Calm Eyes: Yes: Conjunctiva Clear HENT: Yes: Atraumatic Cardiovascular: Yes: S1, S2 Respiratory: Yes: CTA Bilaterally Gastrointestinal: Yes: Soft Genitourinary: Yes: WNL Musculoskeletal: Yes: Muscle Weakness Edema: No Neurological: Yes: Oriented Labs: CBC, BMP 05/02/16 05:10 05/02/16 05:10 INR, PTT INR 0.97 (0.82-1.09) 04/30/16 06:30 Assessment/Plan Current Medications Generic Name Dose Route Start Last Admin Trade Name Kassy PRN Reason Stop Dose Admin Aspirin 81 mg 05/02/16 10:00 05/02/16 11:03 Asa - PO 81 mg DAILY JESSY Administration Atorvastatin Calcium 20 mg 05/01/16 22:00 05/01/16 21:33 Lipitor - PO 20 mg HS JESSY Administration Bacitracin 1 applic 05/01/16 22:00 05/02/16 09:16 Bacitracin - TP 1 applic BID JESSY Administration Diphenhydramine HCl 25 mg 05/02/16 10:00 05/02/16 09:16 Benadryl Injection - IVPB 25 mg DAILY JESSY Administration Folic Acid 1 mg 05/03/16 10:00 Folic Acid - PO DAILY JESSY Heparin Sodium (Porcine) 5,000 unit 05/01/16 22:00 05/02/16 06:12 Heparin - SQ 5,000 unit TID JESSY Administration Hydralazine HCl 25 mg 05/02/16 10:00 05/02/16 09:15 Apresoline - PO 25 mg BID JESSY Administration Piperacillin Sod/Tazobactam Sod 50 mls @ 100 mls/hr 05/01/16 13:45 05/02/16 09: 15 Zosyn 2.25gm Ivpb (Pre-Docked) IVPB 100 mls/hr Q8H-IV JESSY Administration Protocol Insulin Aspart 1 vial 05/01/16 22:00 05/02/16 11:23 Novolog Vial Sliding Scale - SQ 2 units ACHS JESSY Administration Protocol Multivitamins/Minerals/Vitamin C 1 tab 05/03/16 10:00 Tab-A-Vit - PO DAILY JESSY Nifedipine 60 mg 05/02/16 10:00 05/02/16 09:15 Procardia Xl - PO 60 mg DAILY JESSY Administration Thiamine HCl 100 mg 05/03/16 10:00 Vitamin B1 - PO DAILY [facility] Impression 1. GABY 2. likely CKD 3. hypertensive emergency 4. DM 5. hyperlipidemia 6. hx migraine 7. pleural effusion 8. CVA 9. positive cocaine in urine Plan - cont current meds - monitor bp - reviewed records from [facility], she has a baseline creatinine of about 2.6 - pt also had a positive spep with faint bands - she has poor follow up - she will need further renal workup as outpt - suspect elevated blood pressure from non compliance - wound not restart metformin - discussed with ICU resident and ICU team - neuro input appreciated - will follow pt Dr David
--- NOTE | 2016-05-02 15:39 | PN ---
Progress Note, Physician History of Present Illness: patient improving stable wound looked at improving dried blood phipps still present - Current Medication List Current Medications: Active Medications Aspirin (Asa -) 81 mg PO DAILY [facility] Last Admin: 05/02/16 11:03 Dose: 81 mg Atorvastatin Calcium (Lipitor -) 20 mg PO HS [facility] Last Admin: 05/01/16 21:33 Dose: 20 mg Bacitracin (Bacitracin -) 1 applic TP BID [facility] Last Admin: 05/02/16 09:16 Dose: 1 applic Diphenhydramine HCl (Benadryl Injection -) 25 mg IVPB DAILY [facility] Last Admin: 05/02/16 09:16 Dose: 25 mg Folic Acid (Folic Acid -) 1 mg PO DAILY [facility] Heparin Sodium (Porcine) (Heparin -) 5,000 unit SQ TID [facility] Last Admin: 05/02/16 06:12 Dose: 5,000 unit Hydralazine HCl (Apresoline -) 25 mg PO BID [facility] Last Admin: 05/02/16 09:15 Dose: 25 mg Piperacillin Sod/Tazobactam Sod (Zosyn 2.25gm Ivpb (Pre-Docked)) 50 mls @ 100 mls/hr IVPB Q8H-IV [facility] PRN Reason: Protocol Last Admin: 05/02/16 09:15 Dose: 100 mls/hr Insulin Aspart (Novolog Vial Sliding Scale -) 1 vial SQ ACHS [facility] PRN Reason: Protocol Last Admin: 05/02/16 11:23 Dose: 2 units Multivitamins/Minerals/Vitamin C (Tab-A-Vit -) 1 tab PO DAILY [facility] Nifedipine (Procardia Xl -) 60 mg PO DAILY [facility] Last Admin: 05/02/16 09:15 Dose: 60 mg Thiamine HCl (Vitamin B1 -) 100 mg PO DAILY [facility] - Objective Vital Signs: Vital Signs Temperature 98.6 F 05/02/16 10:00 Pulse Rate 98 H 05/02/16 10:00 Respiratory Rate 23 05/02/16 10:00 Blood Pressure 106/58 05/02/16 10:00 O2 Sat by Pulse Oximetry (%) 100 05/02/16 09:09 Constitutional: Yes: No Distress, Calm Neck: Yes: Supple Cardiovascular: Yes: Regular Rate and Rhythm Respiratory: Yes: Regular, CTA Bilaterally Gastrointestinal: Yes: Normal Bowel Sounds, Soft Musculoskeletal: Yes: Other Extremities: Yes: Other Integumentary: Yes: Erythema, Other (injury of the toe) Neurological: Yes: Alert Psychiatric: Yes: Alert Labs: CBC, BMP 05/02/16 05:10 05/02/16 05:10 INR, PTT INR 0.97 (0.82-1.09) 04/30/16 06:30 Assessment/Plan patient evaluated looked at the toe also of note is that patient patient has lymphangitis the toe does not look very bad injury site noted 1. GABY 2. likely CKD 3. hypertensive emergency 4. DM 5. hyperlipidemia 6. hx migraine 7. pleural effusion 8. r/o CVA 9. positive cocaine in urine lymphangitis cellulitis of the toe plan continue close monitoring as per neuro will stop zosyn tomorrow rest continue as per icu and neuro cc time 40 min
[2016-05-02] MEDS ORDERED: SODIUM CHLORIDE 1,000 ML IV SCH (16:15)
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
--- NOTE | 2016-05-02 16:21 | PN ---
Teaching Attending Note Name of Resident: Kim Henry ATTENDING PHYSICIAN STATEMENT I saw and evaluated the patient. I reviewed the resident's note and discussed the case with the resident. I agree with the resident's findings and plan as documented. SUBJECTIVE: OBJECTIVE: Constitutional: Yes: Calm, cooperative Eyes: Yes: Conjunctiva Clear, EOM Intact HENT: Yes: Atraumatic, Normocephalic Cardiovascular: Yes: S1, S2 Respiratory: Yes: Regular Neurological: Yes: Alert, Cran Nerves II-XII Intact, Other (right arm and leg drift- right foot wound noted sensory intact to light touch) Ext: right great toe ecchymosis, nail is absent , small area of skin breakdown on plantar side of right great toe. Skin: multipl excoriations,? scabies Laboratory 04/30/16 04/30/16 04/30/16 06:20 06:30 06:30 WBC 6.9 K/mm3 K/mm3 (4.0-10.0) RBC 2.94 M/mm3 L D M/mm3 (3.60-5.2) Hgb 8.5 GM/dL L D GM/dL (10.7-15.3) Hct 25.5 % L D % (32.4-45.2) MCV 86.6 fl fl (80-96) MCHC 33.5 g/dl g/dl (32.0-36.0) RDW 15.6 % % (11.6-15.6) Plt Count 181 K/MM3 D K/MM3 (134-434) MPV 7.5 fl fl (7.5-11.1) Neutrophils % 62.1 % % (42.8-82.8) Lymphocytes % 25.3 % % (8-40) Monocytes % 8.3 % % (3.8-10.2) Eosinophils % 4.0 % D % (0-4.5) Basophils % 0.3 % % (0-2.0) INR 0.97 (0.82-1.09) Sodium Potassium Chloride Carbon Dioxide Anion Gap BUN Creatinine Creat Clearance w eGFR POC Glucometer 127.72477 UNITS UNITS (()) Random Glucose Hemoglobin A1c % Calcium Phosphorus Magnesium Iron TIBC Iron Saturation Transferrin Ferritin Total Bilirubin AST ALT Alkaline Phosphatase Creatine Kinase Troponin I Total Protein Albumin Triglycerides Cholesterol Total LDL Cholesterol HDL Cholesterol TSH Urine Color Urine Appearance Urine pH Ur Specific Sodus Urine Protein Urine Glucose (UA) Urine Ketones Urine Blood Urine Nitrite Urine Bilirubin Urine Urobilinogen Ur Leukocyte Esterase Urine RBC Urine WBC Ur Epithelial Cells Ur Random Sodium Ur Random Potassium Ur Random Chloride Urine Creatinine Opiates Screen Methadone Screen Barbiturate Screen Phencyclidine Screen Ur Amphetamines Screen MDMA (Ecstasy) Screen Benzodiazepines Screen Cocaine Screen U Marijuana (THC) Screen Blood Type Antibody Screen Crossmatch 04/30/16 04/30/16 04/30/16 06:30 06:30 08:10 WBC RBC Hgb Hct MCV MCHC RDW Plt Count MPV Neutrophils % Lymphocytes % Monocytes % Eosinophils % Basophils % INR Sodium 142 mmol/L mmol/L (136-145) Potassium 4.5 mmol/L mmol/L (3.5-5.1) Chloride 115 mmol/L H D mmol/L (98-107) Carbon Dioxide 17 mmol/L L D mmol/L (21-32) Anion Gap 10 (8-16) BUN 45 mg/dL H D mg/dL (7-18) Creatinine 3.1 mg/dL H D mg/dL (0.55-1.02) Creat Clearance w eGFR 15.38 (>60) POC Glucometer Random Glucose 104 mg/dL mg/dL (74-106) Hemoglobin A1c % Calcium 7.7 mg/dL L mg/dL (8.5-10.1) Phosphorus Magnesium 1.9 mg/dL mg/dL (1.8-2.4) Iron TIBC Iron Saturation Transferrin Ferritin Total Bilirubin 0.2 mg/dL D mg/dL (0.2-1.0) AST 17 U/L D U/L (15-37) ALT 14 U/L D U/L (12-78) Alkaline Phosphatase 169 U/L H U/L (45-117) Creatine Kinase 64 IU/L IU/L (26-192) Troponin I 0.03 ng/ml ng/ml (0.00-0.05) Total Protein 6.8 g/dl g/dl (6.4-8.2) Albumin 2.5 g/dl L g/dl (3.4-5.0) Triglycerides 172 mg/dL H D mg/dL (35-160) Cholesterol 222 mg/dL H mg/dL (50-200) Total LDL Cholesterol 141 mg/dL H mg/dL (5-100) HDL Cholesterol 55 mg/dL mg/dL (40-60) TSH 3.44 uIU/ml uIU/ml (0.358-3.74) Urine Color Urine Appearance Urine pH Ur Specific Sodus Urine Protein Urine Glucose (UA) Urine Ketones Urine Blood Urine Nitrite Urine Bilirubin Urine Urobilinogen Ur Leukocyte Esterase Urine RBC Urine WBC Ur Epithelial Cells Ur Random Sodium Ur Random Potassium Ur Random Chloride Urine Creatinine Opiates Screen Methadone Screen Barbiturate Screen Phencyclidine Screen Ur Amphetamines Screen MDMA (Ecstasy) Screen Benzodiazepines Screen Cocaine Screen U Marijuana (THC) Screen Blood Type O POSITIVE O POSITIVE Antibody Screen Negative Crossmatch See Detail See Detail 04/30/16 04/30/16 04/30/16 11:08 17:56 18:07 WBC RBC Hgb Hct MCV MCHC RDW Plt Count MPV Neutrophils % Lymphocytes % Monocytes % Eosinophils % Basophils % INR Sodium Potassium Chloride Carbon Dioxide Anion Gap BUN Creatinine Creat Clearance w eGFR POC Glucometer 167.42091 UNITS UNITS (()) Random Glucose Hemoglobin A1c % 5.2 % D % (4.8-6.0) Calcium Phosphorus Magnesium Iron TIBC Iron Saturation Transferrin Ferritin Total Bilirubin AST ALT Alkaline Phosphatase Creatine Kinase Troponin I Total Protein Albumin Triglycerides Cholesterol Total LDL Cholesterol HDL Cholesterol TSH Urine Color Urine Appearance Urine pH Ur Specific Sodus Urine Protein Urine Glucose (UA) Urine Ketones Urine Blood Urine Nitrite Urine Bilirubin Urine Urobilinogen Ur Leukocyte Esterase Urine RBC Urine WBC Ur Epithelial Cells Ur Random Sodium Ur Random Potassium Ur Random Chloride Urine Creatinine Opiates Screen Negative ng/ml ng/ml (CSTBMB=365) Methadone Screen Negative ng/ml ng/ml (JAUVQQ=478) Barbiturate Screen Negative ng/ml ng/ml (GQANNK=610) Phencyclidine Screen Negative ng/ml ng/ml (CUTOFF=25) Ur Amphetamines Screen Negative ng/ml ng/ml (MIZITL=104) MDMA (Ecstasy) Screen Negative ng/ml ng/ml (ZEMLCJ=378) Benzodiazepines Screen Negative ng/ml ng/ml (ZJWXIM=203) Cocaine Screen Positive ng/ml ng/ml (CICTBI=619) U Marijuana (THC) Screen Negative ng/ml ng/ml (CUTOFF=50) Blood Type Antibody Screen Crossmatch 04/30/16 04/30/16 04/30/16 18:07 18:07 18:07 WBC RBC Hgb Hct MCV MCHC RDW Plt Count MPV Neutrophils % Lymphocytes % Monocytes % Eosinophils % Basophils % INR Sodium Potassium Chloride Carbon Dioxide Anion Gap BUN Creatinine Creat Clearance w eGFR POC Glucometer Random Glucose Hemoglobin A1c % Calcium Phosphorus Magnesium Iron TIBC Iron Saturation Transferrin Ferritin Total Bilirubin AST ALT Alkaline Phosphatase Creatine Kinase Troponin I Total Protein Albumin Triglycerides Cholesterol Total LDL Cholesterol HDL Cholesterol TSH Urine Color Straw Urine Appearance Clear Urine pH 6.0 (5.0-8.0) Ur Specific Sodus 1.011 (1.001-1.035) Urine Protein 3+ H D (NEGATIVE) Urine Glucose (UA) 2+ H (NEGATIVE) Urine Ketones Negative (NEGATIVE) Urine Blood 1+ H (NEGATIVE) Urine Nitrite Negative (NEGATIVE) Urine Bilirubin Negative (NEGATIVE) Urine Urobilinogen Negative E.U./dl E.U./dl (0.2-1.0) Ur Leukocyte Esterase Negative (NEGATIVE) Urine RBC 19 /hpf /hpf (0-3) Urine WBC 5 /hpf /hpf (3-5) Ur Epithelial Cells Moderate /hpf /hpf (FEW) Ur Random Sodium 72 MMOL/L MMOL/L Ur Random Potassium 23.6 MMOL/L MMOL/L Ur Random Chloride 78 MMOL/L MMOL/L Urine Creatinine 44.0 mg/dL mg/dL Opiates Screen Methadone Screen Barbiturate Screen Phencyclidine Screen Ur Amphetamines Screen MDMA (Ecstasy) Screen Benzodiazepines Screen Cocaine Screen U Marijuana (THC) Screen Blood Type Antibody Screen Crossmatch 04/30/16 05/01/16 05/01/16 22:01 05:20 05:20 WBC RBC Hgb Hct MCV MCHC RDW Plt Count MPV Neutrophils % Lymphocytes % Monocytes % Eosinophils % Basophils % INR Sodium 145 mmol/L mmol/L (136-145) Potassium 4.7 mmol/L mmol/L (3.5-5.1) Chloride 120 mmol/L H mmol/L (98-107) Carbon Dioxide 17 mmol/L L mmol/L (21-32) Anion Gap 8 (8-16) BUN 45 mg/dL H mg/dL (7-18) Creatinine 3.2 mg/dL H mg/dL (0.55-1.02) Creat Clearance w eGFR POC Glucometer 155.34905 UNITS UNITS (()) Random Glucose 89 mg/dL mg/dL (74-106) Hemoglobin A1c % Calcium 7.2 mg/dL L mg/dL (8.5-10.1) Phosphorus 4.6 mg/dL D mg/dL (2.5-4.9) Magnesium 1.9 mg/dL mg/dL (1.8-2.4) Iron 28 ug/dL ug/dL (27-159) TIBC 237 ug/dL L ug/dL (250-450) Iron Saturation 12 % L % (15-55) Transferrin 224 mg/dL mg/dL (200-370) Ferritin 24.276 ng/ml ng/ml (6.9-282.5) Total Bilirubin AST ALT Alkaline Phosphatase Creatine Kinase 44 IU/L IU/L (26-192) Troponin I 0.05 ng/ml ng/ml (0.00-0.05) Total Protein Albumin Triglycerides Cholesterol Total LDL Cholesterol HDL Cholesterol TSH Urine Color Urine Appearance Urine pH Ur Specific Sodus Urine Protein Urine Glucose (UA) Urine Ketones Urine Blood Urine Nitrite Urine Bilirubin Urine Urobilinogen Ur Leukocyte Esterase Urine RBC Urine WBC Ur Epithelial Cells Ur Random Sodium Ur Random Potassium Ur Random Chloride Urine Creatinine Opiates Screen Methadone Screen Barbiturate Screen Phencyclidine Screen Ur Amphetamines Screen MDMA (Ecstasy) Screen Benzodiazepines Screen Cocaine Screen U Marijuana (THC) Screen Blood Type Antibody Screen Crossmatch 05/01/16 05/01/16 05/01/16 05:20 06:34 11:08 WBC 5.5 K/mm3 K/mm3 (4.0-10.0) RBC 2.63 M/mm3 L M/mm3 (3.60-5.2) Hgb 7.5 GM/dL L D GM/dL (10.7-15.3) Hct 23.1 % L % (32.4-45.2) MCV 87.6 fl fl (80-96) MCHC 32.5 g/dl g/dl (32.0-36.0) RDW 15.5 % % (11.6-15.6) Plt Count 162 K/MM3 K/MM3 (134-434) MPV 8.0 fl fl (7.5-11.1) Neutrophils % Lymphocytes % Monocytes % Eosinophils % Basophils % INR Sodium Potassium Chloride Carbon Dioxide Anion Gap BUN Creatinine Creat Clearance w eGFR POC Glucometer 113.52953 UNITS UNITS 194.75882 UNITS UNITS (()) (()) Random Glucose Hemoglobin A1c % Calcium Phosphorus Magnesium Iron TIBC Iron Saturation Transferrin Ferritin Total Bilirubin AST ALT Alkaline Phosphatase Creatine Kinase Troponin I Total Protein Albumin Triglycerides Cholesterol Total LDL Cholesterol HDL Cholesterol TSH Urine Color Urine Appearance Urine pH Ur Specific [place] Urine Protein Urine Glucose (UA) Urine Ketones Urine Blood Urine Nitrite Urine Bilirubin Urine Urobilinogen Ur Leukocyte Esterase Urine RBC Urine WBC Ur Epithelial Cells Ur Random Sodium Ur Random Potassium Ur Random Chloride Urine Creatinine Opiates Screen Methadone Screen Barbiturate Screen Phencyclidine Screen Ur Amphetamines Screen MDMA (Ecstasy) Screen Benzodiazepines Screen Cocaine Screen U Marijuana (THC) Screen Blood Type Antibody Screen Crossmatch 05/01/16 05/01/16 05/01/16 15:15 17:18 21:42 WBC 5.1 K/mm3 K/mm3 (4.0-10.0) RBC 2.62 M/mm3 L M/mm3 (3.60-5.2) Hgb 7.4 GM/dL L GM/dL (10.7-15.3) Hct 22.7 % L % (32.4-45.2) MCV 86.7 fl fl (80-96) MCHC 32.7 g/dl g/dl (32.0-36.0) RDW 15.4 % % (11.6-15.6) Plt Count 161 K/MM3 K/MM3 (134-434) MPV 7.9 fl fl (7.5-11.1) Neutrophils % Lymphocytes % Monocytes % Eosinophils % Basophils % INR Sodium Potassium Chloride Carbon Dioxide Anion Gap BUN Creatinine Creat Clearance w eGFR POC Glucometer 169.61422 UNITS UNITS 139.26627 UNITS UNITS (()) (()) Random Glucose Hemoglobin A1c % Calcium Phosphorus Magnesium Iron TIBC Iron Saturation Transferrin Ferritin Total Bilirubin AST ALT Alkaline Phosphatase Creatine Kinase Troponin I Total Protein Albumin Triglycerides Cholesterol Total LDL Cholesterol HDL Cholesterol TSH Urine Color Urine Appearance Urine pH Ur Specific [place] Urine Protein Urine Glucose (UA) Urine Ketones Urine Blood Urine Nitrite Urine Bilirubin Urine Urobilinogen Ur Leukocyte Esterase Urine RBC Urine WBC Ur Epithelial Cells Ur Random Sodium Ur Random Potassium Ur Random Chloride Urine Creatinine Opiates Screen Methadone Screen Barbiturate Screen Phencyclidine Screen Ur Amphetamines Screen MDMA (Ecstasy) Screen Benzodiazepines Screen Cocaine Screen U Marijuana (THC) Screen Blood Type Antibody Screen Crossmatch 05/02/16 05/02/16 05/02/16 05:10 05:10 06:09 WBC 6.0 K/mm3 K/mm3 (4.0-10.0) RBC 3.08 M/mm3 L M/mm3 (3.60-5.2) Hgb 8.9 GM/dL L D GM/dL (10.7-15.3) Hct 26.9 % L D % (32.4-45.2) MCV 87.4 fl fl (80-96) MCHC 33.0 g/dl g/dl (32.0-36.0) RDW 15.3 % % (11.6-15.6) Plt Count 141 K/MM3 K/MM3 (134-434) MPV 8.1 fl fl (7.5-11.1) Neutrophils % 59.3 % % (42.8-82.8) Lymphocytes % 26.1 % % (8-40) Monocytes % 8.7 % % (3.8-10.2) Eosinophils % 5.4 % H % (0-4.5) Basophils % 0.5 % % (0-2.0) INR Sodium 144 mmol/L mmol/L (136-145) Potassium 4.8 mmol/L mmol/L (3.5-5.1) Chloride 119 mmol/L H mmol/L (98-107) Carbon Dioxide 17 mmol/L L mmol/L (21-32) Anion Gap 8 (8-16) BUN 46 mg/dL H mg/dL (7-18) Creatinine 3.4 mg/dL H mg/dL (0.55-1.02) Creat Clearance w eGFR 13.82 (>60) POC Glucometer 127.29731 UNITS UNITS (()) Random Glucose 79 mg/dL mg/dL (74-106) Hemoglobin A1c % Calcium 7.3 mg/dL L mg/dL (8.5-10.1) Phosphorus 5.3 mg/dL H mg/dL (2.5-4.9) Magnesium 1.9 mg/dL mg/dL (1.8-2.4) Iron TIBC Iron Saturation Transferrin Ferritin Total Bilirubin 0.5 mg/dL D mg/dL (0.2-1.0) AST 21 U/L D U/L (15-37) ALT 13 U/L U/L (12-78) Alkaline Phosphatase 148 U/L H U/L (45-117) Creatine Kinase Troponin I Total Protein 6.0 g/dl L g/dl (6.4-8.2) Albumin 2.1 g/dl L g/dl (3.4-5.0) Triglycerides Cholesterol Total LDL Cholesterol HDL Cholesterol TSH Urine Color Urine Appearance Urine pH Ur Specific [place] Urine Protein Urine Glucose (UA) Urine Ketones Urine Blood Urine Nitrite Urine Bilirubin Urine Urobilinogen Ur Leukocyte Esterase Urine RBC Urine WBC Ur Epithelial Cells Ur Random Sodium Ur Random Potassium Ur Random Chloride Urine Creatinine Opiates Screen Methadone Screen Barbiturate Screen Phencyclidine Screen Ur Amphetamines Screen MDMA (Ecstasy) Screen Benzodiazepines Screen Cocaine Screen U Marijuana (THC) Screen Blood Type Antibody Screen Crossmatch ASSESSMENT AND PLAN: 61 year old woman with history of hypertension, hyperlipidemia, diabetes, presented to ED with worsening right sided weakness and headache. The patient reports right sided headache, followed by right sided weakness. CT head in ER shows no evidence of acute process. Patient was not a candidate for TPA as she presented outside of the TPA window 1. Right sided weakness, CT shows no acute findings - MRI- p -c/w ASA -c/ statin 2. Right great toe cellulitis - on Zosyn 3. Anemia -s/p trasnsfusion of 1 unit -f/u cbc in am 4 HTN urgency - resolved. BP improved and now on oral meds c/w telemetry 5. Chest pain -resolved , no acute events on tele, cocaine positive UDS - troponin negative 6. Scabies suspected - will treat
[2016-05-02] MEDS: ACETAMINOPHEN 325 MG TABLET (FP) PO PRN (18:44)
[2016-05-02] MEDS ORDERED: HEMOQUE TEST 1 EACH EACH ONE (21:00)
[2016-05-02] MEDS: ATORVASTATIN CA 20 MG TABLET (FP) PO SCH (21:26)
[2016-05-03 00:06] LABS: HEP B SURFACE AB Reactive (.)
[2016-05-03] MEDS: PIPERACILLIN/TAZOB 2.25 GM 50 ML IVPB SCH ×3 (02:36→17:36)
[2016-05-03] MEDS ORDERED: hydrALAZINE HCL 20 MG/ML VIAL IVPUSH ONE (03:20)
[2016-05-03] MEDS ORDERED: hydrALAZINE HCL 20 MG/ML VIAL ONE (03:31)
[2016-05-03] MEDS: INSULIN SLIDING SCALE (NOVOLOG) 1 VIAL SQ SCH ×4 (06:09→22:46)
[2016-05-03] MEDS: HEPARIN NA (PORCINE) 5,000 UNITS/ML 1ML VIAL SQ SCH ×3 (06:14→22:42)
[2016-05-03 06:30] LABS: MCH 28.4 pg (25.7-33.7); MCHC 32.7 g/dl (32.0-36.0); MEAN CELL VOLUME 86.8 fl (80-96); MEAN PLT VOLUME 8.1 fl (7.5-11.1); PLATELET COUNT 131 K/MM3 (134-434); RDW 15.3 % (11.6-15.6); WHITE BLOOD COUNT 4.7 K/mm3 (4.0-10.0)
[2016-05-03 06:46] LABS: CALCIUM 7.4 mg/dL (8.5-10.1)
[2016-05-03 06:51] LABS: CREATININE 3.4 mg/dL (0.55-1.02)
[2016-05-03] MEDS: hydrALAZINE HCL 25 MG TABLET (FP) PO SCH ×2 (09:09→22:41)
[2016-05-03] MEDS: NIFEdipine E.R 60 MG TABLET (UD) PO SCH (09:09)
[2016-05-03] MEDS: ASPIRIN 81 MG CHEWABLE TABLETS PO SCH (09:09)
[2016-05-03] MEDS: THIAMINE HCL 100 MG TABLET (FP) PO SCH (09:13)
[2016-05-03] MEDS: MULTIVITAMINS (DAILY MVI) TABLET (FP) PO SCH (09:13)
[2016-05-03] MEDS: FOLIC ACID 1 MG TABLET (FP) PO SCH (09:13)
[2016-05-03] MEDS: BACITRACIN 30 GM TUBE TOPICAL OINTMENT TP SCH ×2 (09:14→22:40)
[2016-05-03] MEDS ORDERED: morphine CARPU-JECT 2 MG/1 ML DISP.SYRIN IVPUSH PRN (09:39)
--- NOTE | 2016-05-03 11:00 | PN ---
Progress Note (short form) - Note Progress Note: Consult Specialty:: Neurology Reason for Consultation:: Right side weakness - History of Present Illness History of Present Illness: 61 year old woman with history of hypertension, hyperlipidemia, diabetes, presents to ED with one day history of worsening right sided weakness and headache. The patient reports right sided headache, followed by right sided weakness. CT head was complete which shows no evidence of acute process. Patient was not a candidate for TPA as she presented outside of the TPA window. Reports some improvement in symptoms but continues to experience right arm/leg drift MRI brain - L cerebral peduncle infarct, possible stroke, contrast suggested to exclude mass - Past Medical History HOME WORKER: Yes: Vertigo Cardio/Vascular: Yes: HTN, Hyperlipdemia Endocrine: Yes: Diabetes Insipidus - Alcohol/Substance Use Hx Alcohol Use: No History of Substance Use: denies: Cocaine, Heroin, Marijuana - Smoking History Smoking history: Never smoked Have you smoked in the past 12 months: Yes Aproximately how many cigarettes per day: 1 Home Medications - Allergies Allergies/Adverse Reactions: Allergies Allergy/AdvReac Type Severity Reaction Status Date / Time No Known Drug Allergies Allergy Verified 04/30/16 06:29 - Home Medications Home Medications: Ambulatory Orders Meclizine HCl [Antivert -] 25 mg PO TID #21 tablet 08/17/13 Unobtainable Home Med List 0 dose .ROUTE UTDICT 08/17/13 Amlodipine Besylate [Norvasc -] 5 mg PO DAILY #30 tablet 08/20/13 Folic Acid - 1 mg PO DAILY #30 tablet 08/20/13 Metformin HCl [Glucophage -] 500 mg PO BID #60 tablet 08/20/13 Multivitamins [Multivit ([facility])] 1 tab PO DAILY #30 tab 08/20/13 Pantoprazole Sodium [Protonix -] 40 mg PO DAILY #30 tablet.ec 08/20/13 Thiamine HCl [Vitamin B1 -] 100 mg PO DAILY #30 tablet 08/20/13 Calamine/Zinc Oxide [Qc Calamine Lotion] 5 ml TP BID #177 ml 08/05/15 Hydroxyzine HCl [Atarax -] 25 mg PO TID #21 tablet 08/05/15 Review of Systems - Review of Systems Constitutional: reports: No Symptoms Eyes: reports: No Symptoms HENT: reports: No Symptoms Cardiovascular: reports: No Symptoms Respiratory: reports: No Symptoms Neurological: reports: Headache, Weakness Physical Exam Constitutional: Yes: Calm Eyes: Yes: Conjunctiva Clear, EOM Intact HENT: Yes: Atraumatic, Normocephalic Cardiovascular: Yes: S1, S2 Respiratory: Yes: Regular Neurological: Yes: Alert, Cran Nerves II-XII Intact, Other (right arm and leg drift some improvement from yesterday exam- right foot wound noted sensory intact to light touch) Assessment/Plan 61 year old woman with history of hypertension, hyperlipidemia, diabetes, presents to ED with one day history of worsening right sided weakness and headache. The patient reports right sided headache occuring yesterday, followed by right sided weakness. CT head was complete which shows no evidence of acute process. Patient was not a candidate for TPA as she presented outside of the TPA window. Reports some improvement in symptoms but continues to experience right arm/leg drift Right sided weakness, left cerebral infarct? NIHSS 2- some improvement in right arm weakness MRI brain - L cerebral peduncle infarct, possible stroke, contrast suggested to exclude mass or demyelinating disease Will hold off on contrast study given elevated Cr Continue aspirin and statin Echo normal LV size Carotid doppler- no significant stenosis PT/OT Recommend repeating MRI brain 1-2 months to assess findings on MRI Please call if further questions
[2016-05-03] MEDS: POLYETHYLENE GLYCOL 3350 119 GM BTL PO SCH (11:25)
--- NOTE | 2016-05-03 12:08 | PN ---
Teaching Attending Note Name of Resident: Michael Plasencia ATTENDING PHYSICIAN STATEMENT I saw and evaluated the patient. I reviewed the resident's note and discussed the case with the resident. I agree with the resident's findings and plan as documented. SUBJECTIVE: Patient seen and examined in the ICU. Awake and alert. Still with some non- specific right sided abdominal discomfort. No BM for the past several days. No CP or SOB. Intake & Output 04/30/16 05/01/16 05/02/16 05/03/16 23:59 23:59 23:59 23:59 Intake Total 504 307 2231 394 Output Total 900 1200 1000 Balance -310 -220 964 394 Weight 120 lb 11.2 oz 121 lb 8 oz 123 lb 9.6 oz 125 lb Last Vital Signs Temp Pulse Resp BP Pulse Ox 97.8 F 90 21 172/79 99 05/03/16 06:00 05/03/16 08:00 05/03/16 08:00 05/03/16 08:00 05/03/16 08:00 Active Medications Acetaminophen (Tylenol -) 650 mg PO Q6H PRN PRN Reason: FEVER OR PAIN Last Admin: 05/02/16 18:44 Dose: 650 mg Aspirin (Asa -) 81 mg PO DAILY [facility] Last Admin: 05/03/16 09:09 Dose: 81 mg Atorvastatin Calcium (Lipitor -) 20 mg PO HS [facility] Last Admin: 05/02/16 21:26 Dose: 20 mg Bacitracin (Bacitracin -) 1 applic TP BID [facility] Last Admin: 05/03/16 09:14 Dose: 1 applic Diphenhydramine HCl (Benadryl Injection -) 25 mg IVPB DAILY [facility] Last Admin: 05/03/16 09:10 Dose: 25 mg Docusate Sodium (Colace -) 100 mg PO TID [facility] Folic Acid (Folic Acid -) 1 mg PO DAILY [facility] Last Admin: 05/03/16 09:13 Dose: 1 mg Heparin Sodium (Porcine) (Heparin -) 5,000 unit SQ TID [facility] Last Admin: 05/03/16 06:14 Dose: 5,000 unit Hydralazine HCl (Apresoline -) 25 mg PO BID [facility] Last Admin: 05/03/16 09:09 Dose: 25 mg Piperacillin Sod/Tazobactam Sod (Zosyn 2.25gm Ivpb (Pre-Docked)) 50 mls @ 100 mls/hr IVPB Q8H-IV JESSY PRN Reason: Protocol Last Admin: 05/03/16 09:06 Dose: 100 mls/hr Sodium Chloride (Normal Saline -) 1,000 mls @ 42 mls/hr IV ASDIR JESSY Stop: 05/03/16 16:04 Last Admin: 05/02/16 16:38 Dose: 42 mls/hr Insulin Aspart (Novolog Vial Sliding Scale -) 1 vial SQ ACHS JESSY PRN Reason: Protocol Last Admin: 05/03/16 06:09 Dose: Not Given Morphine Sulfate (Morphine Injection -) 2 mg IVPUSH Q6H PRN PRN Reason: PAIN Multivitamins/Minerals/Vitamin C (Tab-A-Vit -) 1 tab PO DAILY [facility] Last Admin: 05/03/16 09:13 Dose: 1 tab Nifedipine (Procardia Xl -) 90 mg PO DAILY [facility] Polyethylene Glycol (Miralax (For Daily Use) -) 17 gm PO DAILY [facility] Last Admin: 05/03/16 11:25 Dose: 17 gm Thiamine HCl (Vitamin B1 -) 100 mg PO DAILY [facility] Last Admin: 05/03/16 09:13 Dose: 100 mg General Appearance: Yes: NAD HEENT: positive: EOMI. Neck: positive: Supple. negative: Tender, Carotid bruit, Stridor Respiratory/Chest: positive: few basilar rhonchi, negative: Respiratory Distress Cardiovascular: positive: Regular Rhythm, Regular Rate Gastrointestinal/Abdominal: positive: Normal Bowel Sounds, (+) BS Musculoskeletal: positive: Normal Inspection Extremity: positive: Normal Capillary Refill, Normal Range of Motion Integumentary: positive: areas of excoriation Neurologic: positive: Fully Oriented, Alert, Responsive, Left Facial Droop. Laboratory Results - last 24 hr 05/01/16 05/02/16 05/02/16 05:20 11:11 16:53 WBC RBC Hgb Hct MCV MCHC RDW Plt Count MPV Sodium Potassium Chloride Carbon Dioxide Anion Gap BUN Creatinine POC Glucometer 165.79584 163.97424 Random Glucose Hemoglobin A1c % Calcium Triglycerides Cholesterol Total LDL Cholesterol HDL Cholesterol AVIS Screen Positive H AVIS Homogeneous Pattern TNP AVIS Nucleolar Pattern TNP AVIS Speckled Pattern 1:320 H AVIS Centromere Pattern TNP Hep A IgM Ab Confirm Negative Hepatitis A Ab Total Positive H Hep Bs Antigen Negative Hep Bs Antibody Reactive Hep B Core Total Ab Negative 05/02/16 05/03/16 05/03/16 21:30 05:10 05:10 WBC RBC Hgb Hct MCV MCHC RDW Plt Count MPV Sodium 145 Potassium 4.6 Chloride 119 H Carbon Dioxide 16 L Anion Gap 10 BUN 43 H Creatinine 3.4 H POC Glucometer 114.98843 Random Glucose 78 Hemoglobin A1c % 5.0 D Calcium 7.4 L Triglycerides 151 Cholesterol 154 D Total LDL Cholesterol 102 H HDL Cholesterol 45 AVIS Screen AVIS Homogeneous Pattern AVIS Nucleolar Pattern AVIS Speckled Pattern AVIS Centromere Pattern Hep A IgM Ab Confirm Hepatitis A Ab Total Hep Bs Antigen Hep Bs Antibody Hep B Core Total Ab 05/03/16 05/03/16 05:10 05:56 WBC 4.7 RBC 2.98 L Hgb 8.5 L Hct 25.9 L MCV 86.8 MCHC 32.7 RDW 15.3 Plt Count 131 L MPV 8.1 Sodium Potassium Chloride Carbon Dioxide Anion Gap BUN Creatinine POC Glucometer 99.81008 Random Glucose Hemoglobin A1c % Calcium Triglycerides Cholesterol Total LDL Cholesterol HDL Cholesterol AVIS Screen AVIS Homogeneous Pattern AVIS Nucleolar Pattern AVIS Speckled Pattern AVIS Centromere Pattern Hep A IgM Ab Confirm Hepatitis A Ab Total Hep Bs Antigen Hep Bs Antibody Hep B Core Total Ab ASSESSMENT AND PLAN: Suspected Acute CVA R/O complicated migraine Hypertensive Emergency HTN HPL DM Acute Renal Failure RLL Pleural Effusion / atelectasis (?) RLL PNA O2 as needed Glycemic control Local wound care Miralax If no improvement -> CT with oral contrast Dr Reilly CCTime 35"
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
--- NOTE | 2016-05-03 15:35 | PN ---
Progress Note, Physician History of Present Illness: Pt seen and examined at bedside. She is awake and appears comfortable. - Current Medication List Current Medications: Active Medications Acetaminophen (Tylenol -) 650 mg PO Q6H PRN PRN Reason: FEVER OR PAIN Last Admin: 05/02/16 18:44 Dose: 650 mg Aspirin (Asa -) 81 mg PO DAILY [facility] Last Admin: 05/03/16 09:09 Dose: 81 mg Atorvastatin Calcium (Lipitor -) 20 mg PO HS [facility] Last Admin: 05/02/16 21:26 Dose: 20 mg Bacitracin (Bacitracin -) 1 applic TP BID [facility] Last Admin: 05/03/16 09:14 Dose: 1 applic Diphenhydramine HCl (Benadryl Injection -) 25 mg IVPB DAILY [facility] Last Admin: 05/03/16 09:10 Dose: 25 mg Docusate Sodium (Colace -) 100 mg PO TID [facility] Folic Acid (Folic Acid -) 1 mg PO DAILY [facility] Last Admin: 05/03/16 09:13 Dose: 1 mg Heparin Sodium (Porcine) (Heparin -) 5,000 unit SQ TID [facility] Last Admin: 05/03/16 06:14 Dose: 5,000 unit Hydralazine HCl (Apresoline -) 25 mg PO BID [facility] Last Admin: 05/03/16 09:09 Dose: 25 mg Piperacillin Sod/Tazobactam Sod (Zosyn 2.25gm Ivpb (Pre-Docked)) 50 mls @ 100 mls/hr IVPB Q8H-IV JESSY PRN Reason: Protocol Last Admin: 05/03/16 09:06 Dose: 100 mls/hr Sodium Chloride (Normal Saline -) 1,000 mls @ 42 mls/hr IV ASDIR [facility] Stop: 05/03/16 16:04 Last Admin: 05/02/16 16:38 Dose: 42 mls/hr Insulin Aspart (Novolog Vial Sliding Scale -) 1 vial SQ ACHS JESSY PRN Reason: Protocol Last Admin: 05/03/16 13:00 Dose: Not Given Morphine Sulfate (Morphine Injection -) 2 mg IVPUSH Q6H PRN PRN Reason: PAIN Multivitamins/Minerals/Vitamin C (Tab-A-Vit -) 1 tab PO DAILY [facility] Last Admin: 05/03/16 09:13 Dose: 1 tab Nifedipine (Procardia Xl -) 90 mg PO DAILY [facility] Polyethylene Glycol (Miralax (For Daily Use) -) 17 gm PO DAILY [facility] Last Admin: 05/03/16 11:25 Dose: 17 gm Thiamine HCl (Vitamin B1 -) 100 mg PO DAILY [facility] Last Admin: 05/03/16 09:13 Dose: 100 mg - Objective Vital Signs: Vital Signs Temperature 98.4 F 05/03/16 10:00 Pulse Rate 87 05/03/16 12:00 Respiratory Rate 19 05/03/16 12:00 Blood Pressure 123/65 05/03/16 12:00 O2 Sat by Pulse Oximetry (%) 96 05/03/16 10:00 Constitutional: Yes: Calm Eyes: Yes: Conjunctiva Clear HENT: Yes: Atraumatic Cardiovascular: Yes: S1, S2 Respiratory: Yes: CTA Bilaterally Gastrointestinal: Yes: Soft Genitourinary: Yes: WNL Musculoskeletal: Yes: WNL Edema: No Integumentary: Yes: Laceration Neurological: Yes: Oriented Labs: CBC, BMP 05/03/16 05:10 05/03/16 05:10 INR, PTT INR 0.97 (0.82-1.09) 04/30/16 06:30 Assessment/Plan Current Medications Generic Name Dose Route Start Last Admin Trade Name Freq PRN Reason Stop Dose Admin Acetaminophen 650 mg 05/02/16 17:14 05/02/16 18:44 Tylenol - PO 650 mg Q6H PRN Administration FEVER OR PAIN Aspirin 81 mg 05/02/16 10:00 05/03/16 09:09 Asa - PO 81 mg DAILY JESSY Administration Atorvastatin Calcium 20 mg 05/01/16 22:00 05/02/16 21:26 Lipitor - PO 20 mg HS JESSY Administration Bacitracin 1 applic 05/01/16 22:00 05/03/16 09:14 Bacitracin - TP 1 applic BID JESSY Administration Diphenhydramine HCl 25 mg 05/02/16 10:00 05/03/16 09:10 Benadryl Injection - IVPB 25 mg DAILY JESSY Administration Docusate Sodium 100 mg 05/03/16 14:00 Colace - PO TID JESSY Folic Acid 1 mg 05/03/16 10:00 05/03/16 09:13 Folic Acid - PO 1 mg DAILY JESSY Administration Heparin Sodium (Porcine) 5,000 unit 05/01/16 22:00 05/03/16 06:14 Heparin - SQ 5,000 unit TID JESSY Administration Hydralazine HCl 25 mg 05/02/16 10:00 05/03/16 09:09 Apresoline - PO 25 mg BID JESSY Administration Piperacillin Sod/Tazobactam Sod 50 mls @ 100 mls/hr 05/01/16 13:45 05/03/16 09: 06 Zosyn 2.25gm Ivpb (Pre-Docked) IVPB 100 mls/hr Q8H-IV JESSY Administration Protocol Sodium Chloride 1,000 mls @ 42 mls/hr 05/02/16 16:15 05/02/16 16:38 Normal Saline - IV 05/03/16 16:04 42 mls/hr ASDIR JESSY Administration Insulin Aspart 1 vial 05/01/16 22:00 05/03/16 13:00 Novolog Vial Sliding Scale - SQ Not Given ACHS JESSY Protocol Morphine Sulfate 2 mg 05/03/16 09:39 Morphine Injection - IVPUSH Q6H PRN PAIN Multivitamins/Minerals/Vitamin C 1 tab 05/03/16 10:00 05/03/16 09:13 Tab-A-Vit - PO 1 tab DAILY JESSY Administration Nifedipine 90 mg 05/04/16 10:00 Procardia Xl - PO DAILY [facility] Polyethylene Glycol 17 gm 05/03/16 10:45 05/03/16 11:25 Miralax (For Daily Use) - PO 17 gm DAILY [facility] Administration Thiamine HCl 100 mg 05/03/16 10:00 05/03/16 09:13 Vitamin B1 - PO 100 mg DAILY JESSY Administration Impression 1. GABY 2. likely CKD 3. hypertensive emergency 4. DM 5. hyperlipidemia 6. hx migraine 7. pleural effusion 8. CVA 9. positive cocaine in urine Plan - renal function is starting to stabilize - repeat labs in am - will follow while in hospital - discussed compliance with meds - pt also had a positive spep with faint bands - she will need further renal workup as outpt - wound not restart metformin - will follow pt Dr David
--- NOTE | 2016-05-03 15:39 | PN ---
Progress Note, Physician Chief Complaint: Pt alert; denies chest pain or dyspnea,c/o intermitten dizziness.; no visual disturbances. History of Present Illness: The patient is a 61 year old female with significant past medical history of hypertension, hyperlipidemia, and diabetes, who presents to the ED with 1 day of worsening right-sided weakness and left facial weakness. Patient reports she developed a headache yesterday and subsequently became dizzy with right-sided weakness and left facial weakness. She also reports slurred speech. She denies blurry vision, syncope, or numbness/tingling. The patient denies fever, chills, cough, SOB, chest pain, and palpitations. The patient denies abdominal pain, nausea, vomiting, and diarrhea. Allergies: NKDA Social History: Former ETOH abuse (quit 3 months ago); no tobacco or drug use reported. Past Surgical History: None reported PCP: None reported Brother (alcoholic) had CVA at age 25. - Current Medication List Current Medications: Active Medications Acetaminophen (Tylenol -) 650 mg PO Q6H PRN PRN Reason: FEVER OR PAIN Last Admin: 05/02/16 18:44 Dose: 650 mg Aspirin (Asa -) 81 mg PO DAILY [facility] Last Admin: 05/03/16 09:09 Dose: 81 mg Atorvastatin Calcium (Lipitor -) 20 mg PO HS [facility] Last Admin: 05/02/16 21:26 Dose: 20 mg Bacitracin (Bacitracin -) 1 applic TP BID [facility] Last Admin: 05/03/16 09:14 Dose: 1 applic Diphenhydramine HCl (Benadryl Injection -) 25 mg IVPB DAILY [facility] Last Admin: 05/03/16 09:10 Dose: 25 mg Docusate Sodium (Colace -) 100 mg PO TID [facility] Folic Acid (Folic Acid -) 1 mg PO DAILY [facility] Last Admin: 05/03/16 09:13 Dose: 1 mg Heparin Sodium (Porcine) (Heparin -) 5,000 unit SQ TID [facility] Last Admin: 05/03/16 06:14 Dose: 5,000 unit Hydralazine HCl (Apresoline -) 25 mg PO BID [facility] Last Admin: 05/03/16 09:09 Dose: 25 mg Piperacillin Sod/Tazobactam Sod (Zosyn 2.25gm Ivpb (Pre-Docked)) 50 mls @ 100 mls/hr IVPB Q8H-IV JESSY PRN Reason: Protocol Last Admin: 05/03/16 09:06 Dose: 100 mls/hr Sodium Chloride (Normal Saline -) 1,000 mls @ 42 mls/hr IV ASDIR JESSY Stop: 05/03/16 16:04 Last Admin: 05/02/16 16:38 Dose: 42 mls/hr Insulin Aspart (Novolog Vial Sliding Scale -) 1 vial SQ ACHS JESSY PRN Reason: Protocol Last Admin: 05/03/16 13:00 Dose: Not Given Morphine Sulfate (Morphine Injection -) 2 mg IVPUSH Q6H PRN PRN Reason: PAIN Multivitamins/Minerals/Vitamin C (Tab-A-Vit -) 1 tab PO DAILY [facility] Last Admin: 05/03/16 09:13 Dose: 1 tab Nifedipine (Procardia Xl -) 90 mg PO DAILY [facility] Polyethylene Glycol (Miralax (For Daily Use) -) 17 gm PO DAILY [facility] Last Admin: 05/03/16 11:25 Dose: 17 gm Thiamine HCl (Vitamin B1 -) 100 mg PO DAILY [facility] Last Admin: 05/03/16 09:13 Dose: 100 mg - Objective Vital Signs: Vital Signs Temperature 98.4 F 05/03/16 10:00 Pulse Rate 87 05/03/16 12:00 Respiratory Rate 19 05/03/16 12:00 Blood Pressure 123/65 05/03/16 12:00 O2 Sat by Pulse Oximetry (%) 96 05/03/16 10:00 Constitutional: Yes: No Distress Eyes: Yes: WNL HENT: Yes: Other (trouble swallowing) Cardiovascular: Yes: Pulse Irregular Respiratory: Yes: WNL Gastrointestinal: Yes: Soft ...Rectal Exam: Yes: Deferred Genitourinary: No: Anuria Breast(s): Yes: WNL Musculoskeletal: Yes: Muscle Weakness Extremities: Yes: Cool Edema: No Peripheral Pulses WNL: No Peripheral Pulses: Left Doralis Pedis: 1+, Right Dorsalis Pedis: 1+ Integumentary: Yes: WNL Neurological: Yes: Alert, Oriented, Weakness Psychiatric: Yes: WNL Labs: CBC, BMP 05/03/16 05:10 05/03/16 05:10 INR, PTT INR 0.97 (0.82-1.09) 04/30/16 06:30 Problem List - Problems (1) Abrasion of toe, right, infected Assessment/Plan: f/u vascular studies. Code(s): S90.414A - ABRASION, RIGHT LESSER TOE(S), INITIAL ENCOUNTER L08.9 - LOCAL INFECTION OF THE SKIN AND SUBCUTANEOUS TISSUE, UNSP (2) Alcohol abuse Assessment/Plan: pt says she stopped 3 months ago; Tox screen + for cocaine. Code(s): F10.10 - ALCOHOL ABUSE, UNCOMPLICATED (3) Cerebrovascular accident (CVA) Assessment/Plan: CT head: no acute or chronic pathology; however, has garbled speech, mild decreased right hand strength. MRI: subacute infarct vs lesion; contrast MRI suggested. Code(s): I63.9 - CEREBRAL INFARCTION, UNSPECIFIED Qualifiers: CVA mechanism: unspecified Qualified Code(s): I63.9 - Cerebral infarction, unspecified (4) Diabetes Code(s): E11.9 - TYPE 2 DIABETES MELLITUS WITHOUT COMPLICATIONS (5) Dizziness Code(s): R42 - DIZZINESS AND GIDDINESS (6) Hypercholesteremia Code(s): E78.0 - PURE HYPERCHOLESTEROLEMIA * DO NOT USE * (7) Hypertensive emergency Assessment/Plan: Off beta blockers due to cocaine in urine tox screen. On nifedipine ER. Started PO hydrlazine; may increase to 200 mg total daily (in divided doses). ECHO: normal LVEF; mild LVH; mild TR and MR. Code(s): I10 - ESSENTIAL (PRIMARY) HYPERTENSION (8) Substance abuse Code(s): F19.10 - OTHER PSYCHOACTIVE SUBSTANCE ABUSE, UNCOMPLICATED (9) Anemia Code(s): D64.9 - ANEMIA, UNSPECIFIED (10) Renal dysfunction Code(s): N28.9 - DISORDER OF KIDNEY AND URETER, UNSPECIFIED
--- NOTE | 2016-05-03 15:54 | PN ---
Physical Exam: SUBJECTIVE: Patient seen and examined. She is complaining of RLQ pain that started at night and nausea. No Vomiting. She denies having BMs. No fever, chills. OBJECTIVE: Vital Signs Period Temp Pulse Resp BP Sys/Mancini Pulse Ox Last 24 Hr 97.3 F-98.4 F 75-91 19-23 123-188/60-79 96-100 GENERAL: Awake, alert, and fully oriented, in no acute distress, dishelved. HEAD: Normal with no signs of trauma. EYES: extraocular movements intact, sclera anicteric, conjunctiva clear. EARS, NOSE, THROAT: oropharynx clear without exudates. Moist mucous membranes. NECK: supple without lymphadenopathy, JVD. LUNGS: Breath sounds equal, clear to auscultation bilaterally. No wheezes, and no crackles. No accessory muscle use. HEART: Regular rate and rhythm, normal S1 and S2 without murmur, rub or gallop. ABDOMEN: Soft, tender in RLQ, not distended, normoactive bowel sounds, no guarding, no rebound, no masses. MUSCULOSKELETAL: Limited ROM in right toe. No bony deformities, no swelling. UPPER EXTREMITIES:warm, no cyanosis. No clubbing. No peripheral edema. LOWER EXTREMITIES: warm, no calf tenderness. No peripheral edema. Right toe: no nail, clotted blood. NEUROLOGICAL: Slurred speech. No facial asymmetry, motor: 5/5 RUE, 5/5 LUE, 5/ 5 LEs. Sensation; no changes. Gait not observed. DTRs:biceps and knee nl. PSYCHIATRIC: Cooperative. Good eye contact. Appropriate mood and affect. SKIN: Warm, dry, normal turgor, rash on the back and LE B/L, horizontal scar in mid abdomen-burn, scar on right ankle. Laboratory Results - last 24 hr 05/01/16 05/02/16 05/02/16 05:20 11:11 16:53 WBC RBC Hgb Hct MCV MCHC RDW Plt Count MPV Sodium Potassium Chloride Carbon Dioxide Anion Gap BUN Creatinine POC Glucometer 165.93103 163.88998 Random Glucose Hemoglobin A1c % Calcium Triglycerides Cholesterol Total LDL Cholesterol HDL Cholesterol AVIS Screen Positive H AVIS Homogeneous Pattern TNP AVIS Nucleolar Pattern TNP AVIS Speckled Pattern 1:320 H AVIS Centromere Pattern TNP Hep A IgM Ab Confirm Negative Hepatitis A Ab Total Positive H Hep Bs Antigen Negative Hep Bs Antibody Reactive Hep B Core Total Ab Negative 05/02/16 05/03/16 05/03/16 21:30 05:10 05:10 WBC RBC Hgb Hct MCV MCHC RDW Plt Count MPV Sodium 145 Potassium 4.6 Chloride 119 H Carbon Dioxide 16 L Anion Gap 10 BUN 43 H Creatinine 3.4 H POC Glucometer 114.65108 Random Glucose 78 Hemoglobin A1c % 5.0 D Calcium 7.4 L Triglycerides 151 Cholesterol 154 D Total LDL Cholesterol 102 H HDL Cholesterol 45 AVIS Screen AVIS Homogeneous Pattern AVIS Nucleolar Pattern AVIS Speckled Pattern AVIS Centromere Pattern Hep A IgM Ab Confirm Hepatitis A Ab Total Hep Bs Antigen Hep Bs Antibody Hep B Core Total Ab 05/03/16 05/03/16 05/03/16 05:10 05:56 11:59 WBC 4.7 RBC 2.98 L Hgb 8.5 L Hct 25.9 L MCV 86.8 MCHC 32.7 RDW 15.3 Plt Count 131 L MPV 8.1 Sodium Potassium Chloride Carbon Dioxide Anion Gap BUN Creatinine POC Glucometer 99.04967 138.07489 Random Glucose Hemoglobin A1c % Calcium Triglycerides Cholesterol Total LDL Cholesterol HDL Cholesterol AVIS Screen AVIS Homogeneous Pattern AVIS Nucleolar Pattern AVIS Speckled Pattern AVIS Centromere Pattern Hep A IgM Ab Confirm Hepatitis A Ab Total Hep Bs Antigen Hep Bs Antibody Hep B Core Total Ab Active Medications Generic Name Dose Route Start Last Admin Trade Name Freq PRN Reason Stop Dose Admin Acetaminophen 650 mg 05/02/16 17:14 05/02/16 18:44 Tylenol - PO 650 mg Q6H PRN Administration FEVER OR PAIN Aspirin 81 mg 05/02/16 10:00 05/03/16 09:09 Asa - PO 81 mg DAILY JESSY Administration Atorvastatin Calcium 20 mg 05/01/16 22:00 05/02/16 21:26 Lipitor - PO 20 mg HS JESSY Administration Bacitracin 1 applic 05/01/16 22:00 05/03/16 09:14 Bacitracin - TP 1 applic BID JESSY Administration Diphenhydramine HCl 25 mg 05/02/16 10:00 05/03/16 09:10 Benadryl Injection - IVPB 25 mg DAILY JESSY Administration Docusate Sodium 100 mg 05/03/16 14:00 Colace - PO TID JESSY Folic Acid 1 mg 05/03/16 10:00 05/03/16 09:13 Folic Acid - PO 1 mg DAILY [facility]ESS[facility] Administration Heparin Sodium (Porcine) 5,000 unit 05/01/16 22:00 05/03/16 06:14 Heparin - SQ 5,000 unit TID JESSY Administration Hydralazine HCl 25 mg 05/02/16 10:00 05/03/16 09:09 Apresoline - PO 25 mg BID JESS[facility] Administration Piperacillin Sod/Tazobactam Sod 50 mls @ 100 mls/hr 05/01/16 13:45 05/03/16 09: 06 Zosyn 2.25gm Ivpb (Pre-Docked) IVPB 100 mls/hr Q8H-IV JESSY Administration Protocol Sodium Chloride 1,000 mls @ 42 mls/hr 05/02/16 16:15 05/02/16 16:38 Normal Saline - IV 05/03/16 16:04 42 mls/hr ASDIR JESSY Administration Insulin Aspart 1 vial 05/01/16 22:00 05/03/16 13:00 Novolog Vial Sliding Scale - SQ Not Given ACHS JESSY Protocol Morphine Sulfate 2 mg 05/03/16 09:39 Morphine Injection - IVPUSH Q6H PRN PAIN Multivitamins/Minerals/Vitamin C 1 tab 05/03/16 10:00 05/03/16 09:13 Tab-A-Vit - PO 1 tab DAILY [facility]ESS[facility] Administration Nifedipine 90 mg 05/04/16 10:00 Procardia Xl - PO DAILY [facility] Polyethylene Glycol 17 gm 05/03/16 10:45 05/03/16 11:25 Miralax (For Daily Use) - PO 17 gm DAILY [facility] Administration Thiamine HCl 100 mg 05/03/16 10:00 05/03/16 09:13 Vitamin B1 - PO 100 mg DAILY JESSY Administration CT head: No evidence of acute intracranial hemorrhage, edema, midline shift, mass effect, or skull fracture. No CT evidence of acute territorial infarction. CT abdomen/pelvis: 1. Right pleural effusion and lower lobe atelectasis. 2. Limited study with no evidence of acute pathology within the abdomen or pelvis. Please see above discussion. ASSESSMENT/PLAN: This is a 61 year old female with a significant PMH of DM, HTN, HDL, alcohol abuse who presents to the hospital complaining of weakness in right hand and leg and a headache. She was found to be hypertensive. She is admitted to ICU for hypertensive emergency and R/O CVA. Possible CVA/TIA: -r/o new stroke -f/u Neurology consultation -Aspirin and statins in ED, too late for TPA -speech and swallow evaluation done -brain MRI done, late changes Hypertensive emergency: -she was positive for cocaine, bb -Procardia 60 mg PO qd changed to 90mg -Hydralazine added today -monitor VS Atypical chest pain; -HEART score:4 -ECHO done: no regional WMA but RV Systolic pressure elevated 30-40 -f/u Cardiology consultation GABY possible CKD: -BUN and Cr. elevated, baseline 2.6 -avoid nephrotoxic substances -f/u Nephrology consultation -Kidney US done -resumed IVF at rate 42 ml/hr Right toe infection: -will stop Zosyn -f/u ID consultation -right toe x ray, no fracture -wound care Microcytic anemia: -1 unit of PRBC done, Hgb improved to 8.9 -Iron done -FOBT ordered -will monitor labs in AM Rash and generalized itching: -Benadryl IV 25 D -Permethrin cream started for possible Scabies -contact isolation HDL: -cont. Atorvastatin DM type 2: -ISS ACHS -BGM ACHS -hold Metformin DVT PPX: -SCDs -Heparin 5000 u SQ GI PPX; -not indicated F/E/N: No/No/Low Na Disposition: ICU waiting for transfer to floors Problem List - Problems (1) Cerebrovascular accident (CVA) Code(s): I63.9 - CEREBRAL INFARCTION, UNSPECIFIED Qualifiers: CVA mechanism: unspecified Qualified Code(s): I63.9 - Cerebral infarction, unspecified (2) Hypertensive emergency Code(s): I10 - ESSENTIAL (PRIMARY) HYPERTENSION (3) Alcohol abuse Code(s): F10.10 - ALCOHOL ABUSE, UNCOMPLICATED (4) Diabetes Code(s): E11.9 - TYPE 2 DIABETES MELLITUS WITHOUT COMPLICATIONS (5) Abrasion of toe, right, infected Code(s): S90.414A - ABRASION, RIGHT LESSER TOE(S), INITIAL ENCOUNTER L08.9 - LOCAL INFECTION OF THE SKIN AND SUBCUTANEOUS TISSUE, UNSP Visit type - Emergency Visit Emergency Visit: Yes ED Registration Date: 04/30/16 Care time: The patient presented to the Emergency Department on the above date and was hospitalized for further evaluation of their emergent condition. - New Patient This patient is new to me today: No - Critical Care Critical Care patient: No - Discharge Referral Referred to [facility] Med P.C.: No
--- NOTE | 2016-05-03 16:19 | PN ---
Progress Note, Physician History of Present Illness: patient remaining stable she continues to scratch i think this is the habit noted during her last admission also wound looks much better - Current Medication List Current Medications: Active Medications Acetaminophen (Tylenol -) 650 mg PO Q6H PRN PRN Reason: FEVER OR PAIN Last Admin: 05/02/16 18:44 Dose: 650 mg Aspirin (Asa -) 81 mg PO DAILY [facility] Last Admin: 05/03/16 09:09 Dose: 81 mg Atorvastatin Calcium (Lipitor -) 20 mg PO HS [facility] Last Admin: 05/02/16 21:26 Dose: 20 mg Bacitracin (Bacitracin -) 1 applic TP BID [facility] Last Admin: 05/03/16 09:14 Dose: 1 applic Diphenhydramine HCl (Benadryl Injection -) 25 mg IVPB DAILY [facility] Last Admin: 05/03/16 09:10 Dose: 25 mg Docusate Sodium (Colace -) 100 mg PO TID [facility] Folic Acid (Folic Acid -) 1 mg PO DAILY [facility] Last Admin: 05/03/16 09:13 Dose: 1 mg Heparin Sodium (Porcine) (Heparin -) 5,000 unit SQ TID [facility] Last Admin: 05/03/16 06:14 Dose: 5,000 unit Hydralazine HCl (Apresoline -) 25 mg PO BID [facility] Last Admin: 05/03/16 09:09 Dose: 25 mg Piperacillin Sod/Tazobactam Sod (Zosyn 2.25gm Ivpb (Pre-Docked)) 50 mls @ 100 mls/hr IVPB Q8H-IV JESSY PRN Reason: Protocol Last Admin: 05/03/16 09:06 Dose: 100 mls/hr Insulin Aspart (Novolog Vial Sliding Scale -) 1 vial SQ ACHS JESSY PRN Reason: Protocol Last Admin: 05/03/16 13:00 Dose: Not Given Morphine Sulfate (Morphine Injection -) 2 mg IVPUSH Q6H PRN PRN Reason: PAIN Multivitamins/Minerals/Vitamin C (Tab-A-Vit -) 1 tab PO DAILY [facility] Last Admin: 05/03/16 09:13 Dose: 1 tab Nifedipine (Procardia Xl -) 90 mg PO DAILY [facility] Polyethylene Glycol (Miralax (For Daily Use) -) 17 gm PO DAILY [facility] Last Admin: 05/03/16 11:25 Dose: 17 gm Thiamine HCl (Vitamin B1 -) 100 mg PO DAILY [facility] Last Admin: 05/03/16 09:13 Dose: 100 mg - Objective Vital Signs: Vital Signs Temperature 98.4 F 05/03/16 10:00 Pulse Rate 87 05/03/16 12:00 Respiratory Rate 19 05/03/16 12:00 Blood Pressure 123/65 05/03/16 12:00 O2 Sat by Pulse Oximetry (%) 96 05/03/16 10:00 Constitutional: Yes: No Distress, Calm Cardiovascular: Yes: Regular Rate and Rhythm Respiratory: Yes: Regular, CTA Bilaterally Gastrointestinal: Yes: Normal Bowel Sounds, Soft Musculoskeletal: Yes: Other Extremities: Yes: Other Wound/Incision: Yes: Clean/Dry Neurological: Yes: Alert Psychiatric: Yes: Alert Labs: CBC, BMP 05/03/16 05:10 05/03/16 05:10 INR, PTT INR 0.97 (0.82-1.09) 04/30/16 06:30 Assessment/Plan patient evaluated looked at the toe also of note is that patient patient has lymphangitis the toe does not look very bad injury site noted 1. GABY 2. likely CKD 3. hypertensive emergency 4. DM 5. hyperlipidemia 6. hx migraine 7. pleural effusion 8. r/o CVA 9. positive cocaine in urine lymphangitis cellulitis of the toe plan continue close monitoring as per neuro abx stopped will monitor off of abx rest continue as per icu and neuro cc time 40 min
[2016-05-03] MEDS: DOCUSATE SODIUM 100 MG CAPSULE (FP) PO SCH ×2 (17:06→22:41)
--- NOTE | 2016-05-03 17:08 | PN ---
Teaching Attending Note Name of Resident: Kim Henry ATTENDING PHYSICIAN STATEMENT I saw and evaluated the patient. I reviewed the resident's note and discussed the case with the resident. I agree with the resident's findings and plan as documented. SUBJECTIVE:c/o RLQ abdominal pain that is getting worse OBJECTIVE: Vital Signs Temp 98.4 F 05/03/16 10:00 Pulse 87 05/03/16 12:00 Resp 19 05/03/16 16:00 BP 123/65 05/03/16 12:00 Pulse Ox 96 05/03/16 16:00 Intake & Output 05/02/16 05/03/16 05/03/16 23:59 11:59 23:59 Intake Total 1504 694 420 Output Total 300 400 360 Balance 1204 294 60 Weight 56.699 kg Intake: IV 294 294 300 Normal Saline - 1,000 ml 294 294 300 @ 42 mls/hr IV ASDIR JESSY Rx#:[id number] IVPB 60 200 Oral 1150 200 120 Output: Urine 300 400 360 Void 300 400 360 Other: Voiding Method Bedpan Bedpan # Unmeasured Voids Void 2 Weight Measurement Method Built in Bedscale Constitutional: Yes: Calm, cooperative Eyes: Yes: Conjunctiva Clear, EOM Intact HENT: Yes: Atraumatic, Normocephalic Cardiovascular: Yes: S1, S2 Respiratory: Yes: Regular Neurological: Yes: Alert, Cran Nerves II-XII Intact, Other (right arm and leg drift- right foot wound noted sensory intact to light touch) Ext: right great toe ecchymosis, nail is absent , small area of skin breakdown on plantar side of right great toe. Skin: multipl excoriations,? scabies CBC, BMP 05/03/16 05:10 05/03/16 05:10 ASSESSMENT AND PLAN: 61 year old woman with history of hypertension, hyperlipidemia, diabetes, presented to ED with worsening right sided weakness and headache. The patient reports right sided headache, followed by right sided weakness. CT head in ER shows no evidence of acute process. Patient was not a candidate for TPA as she presented outside of the TPA window 1. Right sided weakness- - MRI results are noted , no acute events -c/w ASA -c/ statin - pt/ ot 2. Right great toe suspected cellulitis/abrasion - on Zosyn - consider changing to po antibiotics ( no fever no WBC ) 3. Anemia - stable now -s/p trasnsfusion of 1 unit 4.HTN urgency - resolved. BP is uncontrolled - increase procardia to 90mg 5. Chest pain -resolved , no acute events on tele, cocaine positive UDS - troponin negative 6. Scabies suspected- treatment was cancelled as ID does not think it is scabies 7 . CKD - baseline CR 3.0 - gentle IVF and monitor for improvement 8. RLQ abdominal pain - r/o appendicitis. - CT abdomen PO contrast -discussed with ICU team
[2016-05-03] MEDS: ACETAMINOPHEN 325 MG TABLET (FP) PO PRN (22:40)
[2016-05-03] MEDS: ATORVASTATIN CA 20 MG TABLET (FP) PO SCH (22:40)
[2016-05-04] MEDS: PIPERACILLIN/TAZOB 2.25 GM 50 ML IVPB SCH ×2 (03:27→09:22)
[2016-05-04] MEDS: ACETAMINOPHEN 325 MG TABLET (FP) PO PRN ×2 (06:27→20:35)
[2016-05-04] MEDS: DOCUSATE SODIUM 100 MG CAPSULE (FP) PO SCH ×3 (06:28→22:03)
[2016-05-04] MEDS: HEPARIN NA (PORCINE) 5,000 UNITS/ML 1ML VIAL SQ SCH ×3 (06:28→22:03)
[2016-05-04] MEDS: INSULIN SLIDING SCALE (NOVOLOG) 1 VIAL SQ SCH ×4 (06:34→22:04)
[2016-05-04 08:52] LABS: MCH 28.7 pg (25.7-33.7); MCHC 32.8 g/dl (32.0-36.0); MEAN CELL VOLUME 87.4 fl (80-96); MEAN PLT VOLUME 7.9 fl (7.5-11.1); PLATELET COUNT 136 K/MM3 (134-434); RDW 15.5 % (11.6-15.6); WHITE BLOOD COUNT 4.6 K/mm3 (4.0-10.0)
[2016-05-04 09:19] LABS: CALCIUM 7.6 mg/dL (8.5-10.1); CREATININE 3.4 mg/dL (0.55-1.02)
[2016-05-04] MEDS: MULTIVITAMINS (DAILY MVI) TABLET (FP) PO SCH (09:24)
[2016-05-04] MEDS: THIAMINE HCL 100 MG TABLET (FP) PO SCH (09:24)
[2016-05-04] MEDS: NIFEdipine E.R. 90 MG TABLET (FP) PO SCH (09:24)
[2016-05-04] MEDS: FOLIC ACID 1 MG TABLET (FP) PO SCH (09:25)
[2016-05-04] MEDS: ASPIRIN 81 MG CHEWABLE TABLETS PO SCH (09:25)
[2016-05-04] MEDS: hydrALAZINE HCL 25 MG TABLET (FP) PO SCH ×2 (09:26→22:03)
[2016-05-04] MEDS: BACITRACIN 30 GM TUBE TOPICAL OINTMENT TP SCH ×2 (09:26→22:04)
[2016-05-04] MEDS: POLYETHYLENE GLYCOL 3350 119 GM BTL PO SCH (09:26)
--- NOTE | 2016-05-04 14:54 | PN ---
Progress Note, Physician History of Present Illness: Pt seen and examined at bedside. She is awake and alert. She denies shortness of breath. - Current Medication List Current Medications: Active Medications Acetaminophen (Tylenol -) 650 mg PO Q6H PRN PRN Reason: FEVER OR PAIN Last Admin: 05/04/16 06:27 Dose: 650 mg Aspirin (Asa -) 81 mg PO DAILY [facility] Last Admin: 05/04/16 09:25 Dose: 81 mg Atorvastatin Calcium (Lipitor -) 20 mg PO HS [facility] Last Admin: 05/03/16 22:40 Dose: 20 mg Bacitracin (Bacitracin -) 1 applic TP BID [facility] Last Admin: 05/04/16 09:26 Dose: 1 applic Diphenhydramine HCl (Benadryl Injection -) 25 mg IVPB DAILY [facility] Last Admin: 05/04/16 09:25 Dose: 25 mg Docusate Sodium (Colace -) 100 mg PO TID [facility] Last Admin: 05/04/16 06:28 Dose: 100 mg Folic Acid (Folic Acid -) 1 mg PO DAILY [facility] Last Admin: 05/04/16 09:25 Dose: 1 mg Heparin Sodium (Porcine) (Heparin -) 5,000 unit SQ TID [facility] Last Admin: 05/04/16 06:28 Dose: 5,000 unit Hydralazine HCl (Apresoline -) 25 mg PO BID [facility] Last Admin: 05/04/16 09:26 Dose: 25 mg Piperacillin Sod/Tazobactam Sod (Zosyn 2.25gm Ivpb (Pre-Docked)) 50 mls @ 100 mls/hr IVPB Q8H-IV JESSY PRN Reason: Protocol Last Admin: 05/04/16 09:22 Dose: 100 mls/hr Insulin Aspart (Novolog Vial Sliding Scale -) 1 vial SQ ACHS JESSY PRN Reason: Protocol Last Admin: 05/04/16 12:14 Dose: Not Given Morphine Sulfate (Morphine Injection -) 2 mg IVPUSH Q6H PRN PRN Reason: PAIN Multivitamins/Minerals/Vitamin C (Tab-A-Vit -) 1 tab PO DAILY [facility] Last Admin: 05/04/16 09:24 Dose: 1 tab Nifedipine (Procardia Xl -) 90 mg PO DAILY [facility] Last Admin: 05/04/16 09:24 Dose: 90 mg Polyethylene Glycol (Miralax (For Daily Use) -) 17 gm PO DAILY [facility] Last Admin: 05/04/16 09:26 Dose: 17 gm Thiamine HCl (Vitamin B1 -) 100 mg PO DAILY [facility] Last Admin: 05/04/16 09:24 Dose: 100 mg - Objective Vital Signs: Vital Signs Temperature 98.5 F 05/04/16 14:00 Pulse Rate 88 05/04/16 14:00 Respiratory Rate 20 05/04/16 14:00 Blood Pressure 135/72 05/04/16 14:00 O2 Sat by Pulse Oximetry (%) 93 L 05/03/16 21:00 Constitutional: Yes: Calm Eyes: Yes: Conjunctiva Clear HENT: Yes: Atraumatic Neck: Yes: Supple Cardiovascular: Yes: S1, S2 Respiratory: Yes: CTA Bilaterally Gastrointestinal: Yes: Soft Genitourinary: Yes: WNL Extremities: Yes: WNL Edema: No Neurological: Yes: Oriented Labs: CBC, BMP 05/04/16 08:30 05/04/16 08:30 INR, PTT INR 0.97 (0.82-1.09) 04/30/16 06:30 Assessment/Plan Current Medications Generic Name Dose Route Start Last Admin Trade Name Freq PRN Reason Stop Dose Admin Acetaminophen 650 mg 05/02/16 17:14 05/04/16 06:27 Tylenol - PO 650 mg Q6H PRN Administration FEVER OR PAIN Aspirin 81 mg 05/02/16 10:00 05/04/16 09:25 Asa - PO 81 mg DAILY JESSY Administration Atorvastatin Calcium 20 mg 05/01/16 22:00 05/03/16 22:40 Lipitor - PO 20 mg HS JESSY Administration Bacitracin 1 applic 05/01/16 22:00 05/04/16 09:26 Bacitracin - TP 1 applic BID JESSY Administration Diphenhydramine HCl 25 mg 05/02/16 10:00 05/04/16 09:25 Benadryl Injection - IVPB 25 mg DAILY JESSY Administration Docusate Sodium 100 mg 05/03/16 14:00 05/04/16 06:28 Colace - PO 100 mg TID JESSY Administration Folic Acid 1 mg 05/03/16 10:00 05/04/16 09:25 Folic Acid - PO 1 mg DAILY JESSY Administration Heparin Sodium (Porcine) 5,000 unit 05/01/16 22:00 05/04/16 06:28 Heparin - SQ 5,000 unit TID JESSY Administration Hydralazine HCl 25 mg 05/02/16 10:00 05/04/16 09:26 Apresoline - PO 25 mg BID JESSY Administration Piperacillin Sod/Tazobactam Sod 50 mls @ 100 mls/hr 05/01/16 13:45 05/04/16 09: 22 Zosyn 2.25gm Ivpb (Pre-Docked) IVPB 100 mls/hr Q8H-IV JESSY Administration Protocol Insulin Aspart 1 vial 05/01/16 22:00 05/04/16 12:14 Novolog Vial Sliding Scale - SQ Not Given ACHS JESSY Protocol Morphine Sulfate 2 mg 05/03/16 09:39 Morphine Injection - IVPUSH Q6H PRN PAIN Multivitamins/Minerals/Vitamin C 1 tab 05/03/16 10:00 05/04/16 09:24 Tab-A-Vit - PO 1 tab DAILY [facility]ESSY Administration Nifedipine 90 mg 05/04/16 10:00 05/04/16 09:24 Procardia Xl - PO 90 mg DAILY JESSY Administration Polyethylene Glycol 17 gm 05/03/16 10:45 05/04/16 09:26 Miralax (For Daily Use) - PO 17 gm DAILY JESSY Administration Thiamine HCl 100 mg 05/03/16 10:00 05/04/16 09:24 Vitamin B1 - PO 100 mg DAILY JESSY Administration Laboratory Tests 05/01/16 05:20 MILADY Screen Positive H MILADY Speckled Pattern 1:320 H Impression 1. GABY 2. likely CKD 3. hypertensive emergency 4. DM 5. hyperlipidemia 6. hx migraine 7. pleural effusion 8. CVA 9. positive cocaine in urine 10. positive milady Plan - blood pressure is stabilizing - milady is positive, recommend rhuem eval - will need outpt workup for CKD - will check anca and anti dsdna - compliance has been a problem with this patient - pt also had a positive spep with faint bands - she will need further renal workup as outpt - wound not restart metformin - will follow pt Dr David
--- NOTE | 2016-05-04 15:11 | PN ---
Progress Note, Physician History of Present Illness: patient stable sitting in chair - Current Medication List Current Medications: Active Medications Acetaminophen (Tylenol -) 650 mg PO Q6H PRN PRN Reason: FEVER OR PAIN Last Admin: 05/04/16 06:27 Dose: 650 mg Aspirin (Asa -) 81 mg PO DAILY [facility] Last Admin: 05/04/16 09:25 Dose: 81 mg Atorvastatin Calcium (Lipitor -) 20 mg PO HS [facility] Last Admin: 05/03/16 22:40 Dose: 20 mg Bacitracin (Bacitracin -) 1 applic TP BID [facility] Last Admin: 05/04/16 09:26 Dose: 1 applic Diphenhydramine HCl (Benadryl Injection -) 25 mg IVPB DAILY [facility] Last Admin: 05/04/16 09:25 Dose: 25 mg Docusate Sodium (Colace -) 100 mg PO TID [facility] Last Admin: 05/04/16 06:28 Dose: 100 mg Folic Acid (Folic Acid -) 1 mg PO DAILY [facility] Last Admin: 05/04/16 09:25 Dose: 1 mg Heparin Sodium (Porcine) (Heparin -) 5,000 unit SQ TID [facility] Last Admin: 05/04/16 06:28 Dose: 5,000 unit Hydralazine HCl (Apresoline -) 25 mg PO BID [facility] Last Admin: 05/04/16 09:26 Dose: 25 mg Piperacillin Sod/Tazobactam Sod (Zosyn 2.25gm Ivpb (Pre-Docked)) 50 mls @ 100 mls/hr IVPB Q8H-IV JESSY PRN Reason: Protocol Last Admin: 05/04/16 09:22 Dose: 100 mls/hr Insulin Aspart (Novolog Vial Sliding Scale -) 1 vial SQ ACHS JESSY PRN Reason: Protocol Last Admin: 05/04/16 12:14 Dose: Not Given Morphine Sulfate (Morphine Injection -) 2 mg IVPUSH Q6H PRN PRN Reason: PAIN Multivitamins/Minerals/Vitamin C (Tab-A-Vit -) 1 tab PO DAILY [facility] Last Admin: 05/04/16 09:24 Dose: 1 tab Nifedipine (Procardia Xl -) 90 mg PO DAILY [facility] Last Admin: 05/04/16 09:24 Dose: 90 mg Polyethylene Glycol (Miralax (For Daily Use) -) 17 gm PO DAILY [facility] Last Admin: 05/04/16 09:26 Dose: 17 gm Thiamine HCl (Vitamin B1 -) 100 mg PO DAILY [facility] Last Admin: 05/04/16 09:24 Dose: 100 mg - Objective Vital Signs: Vital Signs Temperature 98.5 F 05/04/16 14:00 Pulse Rate 88 05/04/16 14:00 Respiratory Rate 20 05/04/16 14:00 Blood Pressure 135/72 05/04/16 14:00 O2 Sat by Pulse Oximetry (%) 93 L 05/03/16 21:00 Constitutional: Yes: No Distress, Calm HENT: Yes: Atraumatic, Normocephalic Cardiovascular: Yes: Regular Rate and Rhythm Respiratory: Yes: Regular, CTA Bilaterally Gastrointestinal: Yes: Normal Bowel Sounds, Soft Musculoskeletal: Yes: WNL Extremities: Yes: Other (toe looking better) Wound/Incision: Yes: Clean/Dry Neurological: Yes: Alert, Oriented Psychiatric: Yes: Alert Labs: CBC, BMP 05/04/16 08:30 05/04/16 08:30 INR, PTT INR 0.97 (0.82-1.09) 04/30/16 06:30 Assessment/Plan patient evaluated looked at the toe also of note is that patient patient has lymphangitis the toe does not look very bad injury site noted 1. GABY 2. likely CKD 3. hypertensive emergency 4. DM 5. hyperlipidemia 6. hx migraine 7. pleural effusion 8. r/o CVA 9. positive cocaine in urine lymphangitis cellulitis of the toe plan continue current mgmt off of abx
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
--- NOTE | 2016-05-04 19:02 | PN ---
Teaching Attending Note Name of Resident: Kim Henry ATTENDING PHYSICIAN STATEMENT I saw and evaluated the patient. I reviewed the resident's note and discussed the case with the resident. I agree with the resident's findings and plan as documented. SUBJECTIVE: Patient has no complaints. She has been unable to ambulate because of weakness and dizziness. OBJECTIVE: Vital Signs Period Temp Pulse Resp BP Sys/Mancini Pulse Ox Last 24 Hr 98.0 F-98.5 F 81-89 20-20 131-153/61-72 93 HEART: S1 S2, RRR LUNGS: Clear ABDOMEN: Soft, non-tender, non-distended, normal BS EXTREMITIES: No edema ASSESSMENT AND PLAN: This is a 61-year-old woman with a history of type 2 DM, HTN, hyperlipidemia, alcohol abuse who presented with right hand and leg weakness. She was admitted for hypertensive emergency. 1. Possible left cerebral peduncle infarct with right-sided weakness - Continue aspirin, Lipitor - Continue PT - Repeat MRI of brain in 1-2 months 2. Hypertensive emergency - Resolved 3. Hypertension - Continue Procardia, Hydralazine 4. Acute kidney injury on CKD, stage 3 vs stage 4 - Creatinine stable - Outpatient nephrology follow-up 5. Abrasion ansd cellulitis of right 1st toe - Completed antibiotics - Continue Bacitracin 6. Anemia, likely secondary to chronic illness - Transfused 1 unit PRBCs this admission - Hemoglobin stable 7. Generalized pruritus - Continue Benadryl as needed 8. Hyperlipidemia - Continue Lipitor 9. Type 2 diabetes mellitus - Continue Novolog sliding scale 10. Positive AVIS - Outpatient rheumatology evaluation
[2016-05-04] MEDS: ATORVASTATIN CA 20 MG TABLET (FP) PO SCH (22:03)
[2016-05-05] MEDS: HEPARIN NA (PORCINE) 5,000 UNITS/ML 1ML VIAL SQ SCH ×3 (05:36→21:41)
[2016-05-05] MEDS: DOCUSATE SODIUM 100 MG CAPSULE (FP) PO SCH ×3 (05:36→21:26)
[2016-05-05] MEDS: INSULIN SLIDING SCALE (NOVOLOG) 1 VIAL SQ SCH ×4 (06:00→21:41)
--- NOTE | 2016-05-05 09:24 | PN ---
Physical Exam: SUBJECTIVE: Patient seen and examined. She has no complaints. OBJECTIVE: Vital Signs Period Temp Pulse Resp BP Sys/Mancini Pulse Ox Last 24 Hr 98.0 F-98.5 F 82-91 20-20 133-153/62-72 95 GENERAL: The patient is awake, alert, and fully oriented, in no acute distress. LUNGS: Breath sounds equal, clear to auscultation bilaterally, no wheezes, no crackles, no accessory muscle use. HEART: Regular rate and rhythm, S1, S2 without murmur, rub or gallop. ABDOMEN: Soft, nontender, nondistended, normoactive bowel sounds, no guarding, no rebound, no hepatosplenomegaly, no masses. EXTREMITIES: 2+ pulses, warm, well-perfused, no edema. Laboratory Results - last 24 hr 05/04/16 05/04/16 05/04/16 12:14 17:42 20:53 POC Glucometer 138 159 137 05/05/16 05:19 POC Glucometer 87 Active Medications Generic Name Dose Route Start Last Admin Trade Name Freq PRN Reason Stop Dose Admin Acetaminophen 650 mg 05/02/16 17:14 05/04/16 20:35 Tylenol - PO 650 mg Q6H PRN Administration FEVER OR PAIN Aspirin 81 mg 05/02/16 10:00 05/04/16 09:25 Asa - PO 81 mg DAILY JESSY Administration Atorvastatin Calcium 20 mg 05/01/16 22:00 05/04/16 22:03 Lipitor - PO 20 mg HS JESSY Administration Bacitracin 1 applic 05/01/16 22:00 05/04/16 22:04 Bacitracin - TP 1 applic BID JESSY Administration Diphenhydramine HCl 25 mg 05/02/16 10:00 05/04/16 09:25 Benadryl Injection - IVPB 25 mg DAILY JESSY Administration Docusate Sodium 100 mg 05/03/16 14:00 05/05/16 05:36 Colace - PO 100 mg TID JESSY Administration Folic Acid 1 mg 05/03/16 10:00 05/04/16 09:25 Folic Acid - PO 1 mg DAILY JESSY Administration Heparin Sodium (Porcine) 5,000 unit 05/01/16 22:00 05/05/16 05:36 Heparin - SQ 5,000 unit TID JESSY Administration Hydralazine HCl 25 mg 05/02/16 10:00 05/04/16 22:03 Apresoline - PO 25 mg BID JESSY Administration Insulin Aspart 1 vial 05/01/16 22:00 05/05/16 06:00 Novolog Vial Sliding Scale - SQ Not Given ACHS JESSY Protocol Morphine Sulfate 2 mg 05/03/16 09:39 Morphine Injection - IVPUSH Q6H PRN PAIN Multivitamins/Minerals/Vitamin C 1 tab 05/03/16 10:00 05/04/16 09:24 Tab-A-Vit - PO 1 tab DAILY JESSY Administration Nifedipine 90 mg 05/04/16 10:00 05/04/16 09:24 Procardia Xl - PO 90 mg DAILY JESSY Administration Polyethylene Glycol 17 gm 05/03/16 10:45 05/04/16 09:26 Miralax (For Daily Use) - PO 17 gm DAILY JESSY Administration Thiamine HCl 100 mg 05/03/16 10:00 05/04/16 09:24 Vitamin B1 - PO 100 mg DAILY JESSY Administration ASSESSMENT/PLAN: This is a 61-year-old woman with a history of type 2 DM, HTN, hyperlipidemia, alcohol abuse who presented with right hand and leg weakness. She was admitted for hypertensive emergency. 1. Possible left cerebral peduncle infarct with right-sided weakness - Continue aspirin, Lipitor - Continue PT - Repeat MRI of brain in 1-2 months 2. Hypertensive emergency - Resolved 3. Hypertension - Continue Procardia, Hydralazine 4. Acute kidney injury on CKD, stage 3 vs stage 4 - Creatinine stable - Outpatient nephrology follow-up 5. Abrasion ansd cellulitis of right 1st toe - Completed antibiotics - Continue Bacitracin 6. Anemia, likely secondary to chronic illness - Transfused 1 unit PRBCs this admission - Hemoglobin stable 7. Generalized pruritus - Continue Benadryl as needed 8. Hyperlipidemia - Continue Lipitor 9. Type 2 diabetes mellitus - Continue Novolog sliding scale 10. Positive AVIS - Outpatient rheumatology evaluation 11. History of alcohol abuse - Continue multivitamin, thiamine, folic acid 12. Disposition - Plan for subacute rehab Visit type - Emergency Visit Emergency Visit: Yes ED Registration Date: 04/30/16 Care time: The patient presented to the Emergency Department on the above date and was hospitalized for further evaluation of their emergent condition. - New Patient This patient is new to me today: No - Critical Care Critical Care patient: No - Discharge Referral Referred to [facility] Med P.C.: No
[2016-05-05] MEDS: MULTIVITAMINS (DAILY MVI) TABLET (FP) PO SCH (09:51)
[2016-05-05] MEDS: FOLIC ACID 1 MG TABLET (FP) PO SCH (09:51)
[2016-05-05] MEDS: hydrALAZINE HCL 25 MG TABLET (FP) PO SCH ×2 (09:51→21:22)
[2016-05-05] MEDS: THIAMINE HCL 100 MG TABLET (FP) PO SCH (09:52)
[2016-05-05] MEDS: ASPIRIN 81 MG CHEWABLE TABLETS PO SCH (09:52)
[2016-05-05] MEDS: BACITRACIN 30 GM TUBE TOPICAL OINTMENT TP SCH ×2 (09:52→21:41)
[2016-05-05] MEDS: NIFEdipine E.R. 90 MG TABLET (FP) PO SCH (09:53)
[2016-05-05] MEDS: ACETAMINOPHEN 325 MG TABLET (FP) PO PRN (14:54)
[2016-05-05] MEDS: POLYETHYLENE GLYCOL 3350 119 GM BTL PO SCH (14:59)
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
--- NOTE | 2016-05-05 15:09 | PN ---
Progress Note, Physician Chief Complaint: Pt alert; c/o moderately severe squeezing, intermittent right sided chest pain that extends to the right side of abdomen and right groin; the area is tender to mild palpation. No nausea or vomiting; normal bowel movement; good appetite. She has had pain on this side before, but never this severe. History of Present Illness: The patient is a 61 year old female with significant past medical history of hypertension, hyperlipidemia, and diabetes, who presents to the ED with 1 day of worsening right-sided weakness and left facial weakness. Patient reports she developed a headache yesterday and subsequently became dizzy with right-sided weakness and left facial weakness. She also reports slurred speech. She denies blurry vision, syncope, or numbness/tingling. The patient denies fever, chills, cough, SOB, chest pain, and palpitations. The patient denies abdominal pain, nausea, vomiting, and diarrhea. Allergies: NKDA Social History: Former ETOH abuse (quit 3 months ago); no tobacco or drug use reported. Past Surgical History: None reported PCP: None reported Brother (alcoholic) had CVA at age 25. - Current Medication List Current Medications: Active Medications Acetaminophen (Tylenol -) 650 mg PO Q6H PRN PRN Reason: FEVER OR PAIN Last Admin: 05/05/16 14:54 Dose: 650 mg Aspirin (Asa -) 81 mg PO DAILY [facility] Last Admin: 05/05/16 09:52 Dose: 81 mg Atorvastatin Calcium (Lipitor -) 20 mg PO HS [facility] Last Admin: 05/04/16 22:03 Dose: 20 mg Bacitracin (Bacitracin -) 1 applic TP BID [facility] Last Admin: 05/05/16 09:52 Dose: 1 applic Diphenhydramine HCl (Benadryl -) 25 mg PO Q6H PRN PRN Reason: FOR ITCHING Docusate Sodium (Colace -) 100 mg PO TID [facility] Last Admin: 05/05/16 14:54 Dose: 100 mg Folic Acid (Folic Acid -) 1 mg PO DAILY [facility] Last Admin: 05/05/16 09:51 Dose: 1 mg Heparin Sodium (Porcine) (Heparin -) 5,000 unit SQ TID [facility] Last Admin: 05/05/16 14:52 Dose: 5,000 unit Hydralazine HCl (Apresoline -) 25 mg PO BID [facility] Last Admin: 02/26/17 09:51 Dose: 25 mg Insulin Aspart (Novolog Vial Sliding Scale -) 1 vial SQ ACHS [facility]ESS[facility] PRN Reason: Protocol Last Admin: 05/05/16 12:00 Dose: Not Given Morphine Sulfate (Morphine Injection -) 2 mg IVPUSH Q6H PRN PRN Reason: PAIN Multivitamins/Minerals/Vitamin C (Tab-A-Vit -) 1 tab PO DAILY [facility] Last Admin: 05/05/16 09:51 Dose: 1 tab Nifedipine (Procardia Xl -) 90 mg PO DAILY [facility] Last Admin: 05/05/16 09:53 Dose: 90 mg Polyethylene Glycol (Miralax (For Daily Use) -) 17 gm PO DAILY [facility] Last Admin: 05/05/16 14:59 Dose: 17 gm Thiamine HCl (Vitamin B1 -) 100 mg PO DAILY [facility] Last Admin: 05/05/16 09:52 Dose: 100 mg - Objective Vital Signs: Vital Signs Temperature 98.0 F 05/05/16 14:00 Pulse Rate 84 05/05/16 14:00 Respiratory Rate 20 05/05/16 14:00 Blood Pressure 131/55 05/05/16 14:00 O2 Sat by Pulse Oximetry (%) 95 05/04/16 21:00 Constitutional: Yes: Anxious, Mild Distress Eyes: Yes: WNL HENT: Yes: WNL Neck: Yes: WNL Cardiovascular: Yes: Regular Rate and Rhythm Respiratory: Yes: Regular Gastrointestinal: Yes: Soft ...Rectal Exam: Yes: Deferred Genitourinary: Yes: Anuria Breast(s): Yes: WNL Musculoskeletal: Yes: Other (pain in right anterior chest wall and abdomen on palpation) Peripheral Pulses WNL: Yes Integumentary: Yes: Other Neurological: Yes: Alert, Oriented, Weakness Psychiatric: Yes: Alert, Oriented Labs: CBC, BMP 05/04/16 08:30 05/04/16 08:30 INR, PTT INR 0.97 (0.82-1.09) 04/30/16 06:30 Problem List - Problems (1) Alcohol abuse Assessment/Plan: pt says she stopped 3 months ago; Tox screen + for cocaine. Code(s): F10.10 - ALCOHOL ABUSE, UNCOMPLICATED (2) Cerebrovascular accident (CVA) Assessment/Plan: CT head: no acute or chronic pathology; however, has garbled speech, mild decreased right hand strength. MRI: subacute infarct vs lesion; contrast MRI suggested. Code(s): I63.9 - CEREBRAL INFARCTION, UNSPECIFIED Qualifiers: CVA mechanism: unspecified Qualified Code(s): I63.9 - Cerebral infarction, unspecified (3) Diabetes Code(s): E11.9 - TYPE 2 DIABETES MELLITUS WITHOUT COMPLICATIONS (4) Dizziness Code(s): R42 - DIZZINESS AND GIDDINESS (5) Hypercholesteremia Assessment/Plan: started atorvastatin Code(s): E78.0 - PURE HYPERCHOLESTEROLEMIA * DO NOT USE * (6) Hypertensive emergency Assessment/Plan: Off beta blockers due to cocaine in urine tox screen. On nifedipine ER. Started PO hydralazine; may increase to 200 mg total daily (in divided doses). ECHO: normal LVEF; mild LVH; mild TR and MR. Code(s): I10 - ESSENTIAL (PRIMARY) HYPERTENSION (7) Substance abuse Assessment/Plan: Urine tox screen : + for cocaine (pt denies using cocaine; was on Zoszyn). Admits now to >1 ppd cigarettes since age 20; quit several months ago. Agree with stopping metoprolol and starting nifedipine; PO hydralazine started. hx ETOH abuse (according to pt, quit several months ago). Code(s): F19.10 - OTHER PSYCHOACTIVE SUBSTANCE ABUSE, UNCOMPLICATED (8) Anemia Assessment/Plan: no overt source; f/u workup. Code(s): D64.9 - ANEMIA, UNSPECIFIED (9) Renal dysfunction Assessment/Plan: Abd US: morphologically normal kidneys. F/u BUN/Cr; avoid excessive dehydration. Code(s): N28.9 - DISORDER OF KIDNEY AND URETER, UNSPECIFIED (10) Right-sided chest pain Assessment/Plan: right sided chest and abdominal pain. CT abdomen 04/30/16: no acute pathology; right pleural effusion. f/u clinically. Code(s): R07.9 - CHEST PAIN, UNSPECIFIED
--- NOTE | 2016-05-05 15:31 | PN ---
Progress Note, Physician History of Present Illness: stable no new issues - Current Medication List Current Medications: Active Medications Acetaminophen (Tylenol -) 650 mg PO Q6H PRN PRN Reason: FEVER OR PAIN Last Admin: 05/05/16 14:54 Dose: 650 mg Aspirin (Asa -) 81 mg PO DAILY [facility] Last Admin: 05/05/16 09:52 Dose: 81 mg Atorvastatin Calcium (Lipitor -) 20 mg PO HS [facility] Last Admin: 05/04/16 22:03 Dose: 20 mg Bacitracin (Bacitracin -) 1 applic TP BID [facility] Last Admin: 05/05/16 09:52 Dose: 1 applic Diphenhydramine HCl (Benadryl -) 25 mg PO Q6H PRN PRN Reason: FOR ITCHING Docusate Sodium (Colace -) 100 mg PO TID [facility] Last Admin: 05/05/16 14:54 Dose: 100 mg Folic Acid (Folic Acid -) 1 mg PO DAILY [facility] Last Admin: 05/05/16 09:51 Dose: 1 mg Heparin Sodium (Porcine) (Heparin -) 5,000 unit SQ TID [facility] Last Admin: 05/05/16 14:52 Dose: 5,000 unit Hydralazine HCl (Apresoline -) 25 mg PO BID [facility] Last Admin: 05/05/16 09:51 Dose: 25 mg Insulin Aspart (Novolog Vial Sliding Scale -) 1 vial SQ ACHS [facility] PRN Reason: Protocol Last Admin: 05/05/16 12:00 Dose: Not Given Morphine Sulfate (Morphine Injection -) 2 mg IVPUSH Q6H PRN PRN Reason: PAIN Multivitamins/Minerals/Vitamin C (Tab-A-Vit -) 1 tab PO DAILY [facility] Last Admin: 05/05/16 09:51 Dose: 1 tab Nifedipine (Procardia Xl -) 90 mg PO DAILY [facility] Last Admin: 05/05/16 09:53 Dose: 90 mg Polyethylene Glycol (Miralax (For Daily Use) -) 17 gm PO DAILY [facility] Last Admin: 05/05/16 14:59 Dose: 17 gm Thiamine HCl (Vitamin B1 -) 100 mg PO DAILY [facility] Last Admin: 05/05/16 09:52 Dose: 100 mg - Objective Vital Signs: Vital Signs Temperature 98.0 F 05/05/16 14:00 Pulse Rate 84 05/05/16 14:00 Respiratory Rate 20 05/05/16 14:00 Blood Pressure 131/55 05/05/16 14:00 O2 Sat by Pulse Oximetry (%) 95 05/04/16 21:00 Constitutional: Yes: No Distress, Calm Respiratory: Yes: Regular, CTA Bilaterally Gastrointestinal: Yes: Normal Bowel Sounds, Soft Musculoskeletal: Yes: WNL Extremities: Yes: Other Wound/Incision: Yes: Clean/Dry, Other Neurological: Yes: Alert, Oriented Labs: CBC, BMP 05/04/16 08:30 05/04/16 08:30 INR, PTT INR 0.97 (0.82-1.09) 04/30/16 06:30 Assessment/Plan toe improving 1. GABY 2. likely CKD 3. hypertensive emergency 4. DM 5. hyperlipidemia 6. hx migraine 7. pleural effusion 8. r/o CVA 9. positive cocaine in urine lymphangitis cellulitis of the toe plan continue current mgmt off of abx
--- NOTE | 2016-05-05 16:16 | PN ---
Progress Note, Physician History of Present Illness: Pt seen and examined at bedside. She is awake and alert. - Current Medication List Current Medications: Active Medications Acetaminophen (Tylenol -) 650 mg PO Q6H PRN PRN Reason: FEVER OR PAIN Last Admin: 05/05/16 14:54 Dose: 650 mg Aspirin (Asa -) 81 mg PO DAILY [facility] Last Admin: 05/05/16 09:52 Dose: 81 mg Atorvastatin Calcium (Lipitor -) 20 mg PO HS [facility] Last Admin: 05/04/16 22:03 Dose: 20 mg Bacitracin (Bacitracin -) 1 applic TP BID [facility] Last Admin: 05/05/16 09:52 Dose: 1 applic Diphenhydramine HCl (Benadryl -) 25 mg PO Q6H PRN PRN Reason: FOR ITCHING Docusate Sodium (Colace -) 100 mg PO TID [facility] Last Admin: 05/05/16 14:54 Dose: 100 mg Folic Acid (Folic Acid -) 1 mg PO DAILY [facility] Last Admin: 05/05/16 09:51 Dose: 1 mg Heparin Sodium (Porcine) (Heparin -) 5,000 unit SQ TID [facility] Last Admin: 05/05/16 14:52 Dose: 5,000 unit Hydralazine HCl (Apresoline -) 25 mg PO BID [facility] Last Admin: 05/05/16 09:51 Dose: 25 mg Insulin Aspart (Novolog Vial Sliding Scale -) 1 vial SQ ACHS [facility] PRN Reason: Protocol Last Admin: 05/05/16 12:00 Dose: Not Given Morphine Sulfate (Morphine Injection -) 2 mg IVPUSH Q6H PRN PRN Reason: PAIN Multivitamins/Minerals/Vitamin C (Tab-A-Vit -) 1 tab PO DAILY [facility] Last Admin: 05/05/16 09:51 Dose: 1 tab Nifedipine (Procardia Xl -) 90 mg PO DAILY [facility] Last Admin: 05/05/16 09:53 Dose: 90 mg Polyethylene Glycol (Miralax (For Daily Use) -) 17 gm PO DAILY [facility] Last Admin: 05/05/16 14:59 Dose: 17 gm Thiamine HCl (Vitamin B1 -) 100 mg PO DAILY [facility] Last Admin: 05/05/16 09:52 Dose: 100 mg - Objective Vital Signs: Vital Signs Temperature 98.0 F 05/05/16 14:00 Pulse Rate 84 05/05/16 14:00 Respiratory Rate 20 05/05/16 14:00 Blood Pressure 131/55 05/05/16 14:00 O2 Sat by Pulse Oximetry (%) 95 05/04/16 21:00 Constitutional: Yes: Calm Eyes: Yes: Conjunctiva Clear HENT: Yes: Atraumatic Cardiovascular: Yes: S1, S2 Respiratory: Yes: CTA Bilaterally Gastrointestinal: Yes: Soft Genitourinary: Yes: WNL Edema: No Integumentary: Yes: Bruising Neurological: Yes: Oriented Psychiatric: Yes: Oriented Labs: CBC, BMP 05/04/16 08:30 05/04/16 08:30 INR, PTT INR 0.97 (0.82-1.09) 04/30/16 06:30 Assessment/Plan Current Medications Generic Name Dose Route Start Last Admin Trade Name Freq PRN Reason Stop Dose Admin Acetaminophen 650 mg 05/02/16 17:14 05/05/16 14:54 Tylenol - PO 650 mg Q6H PRN Administration FEVER OR PAIN Aspirin 81 mg 05/02/16 10:00 05/05/16 09:52 Asa - PO 81 mg DAILY [facility] Administration Atorvastatin Calcium 20 mg 05/01/16 22:00 05/04/16 22:03 Lipitor - PO 20 mg HS [facility]ESSY Administration Bacitracin 1 applic 05/01/16 22:00 05/05/16 09:52 Bacitracin - TP 1 applic BID [facility] Administration Diphenhydramine HCl 25 mg 05/05/16 14:14 Benadryl - PO Q6H PRN FOR ITCHING Docusate Sodium 100 mg 05/03/16 14:00 05/05/16 14:54 Colace - PO 100 mg TID JESSY Administration Folic Acid 1 mg 05/03/16 10:00 05/05/16 09:51 Folic Acid - PO 1 mg DAILY [facility] Administration Heparin Sodium (Porcine) 5,000 unit 05/01/16 22:00 05/05/16 14:52 Heparin - SQ 5,000 unit TID JESSY Administration Hydralazine HCl 25 mg 05/02/16 10:00 05/05/16 09:51 Apresoline - PO 25 mg BID [facility]ESSY Administration Insulin Aspart 1 vial 05/01/16 22:00 05/05/16 12:00 Novolog Vial Sliding Scale - SQ Not Given ACHS [facility] Protocol Morphine Sulfate 2 mg 05/03/16 09:39 Morphine Injection - IVPUSH Q6H PRN PAIN Multivitamins/Minerals/Vitamin C 1 tab 05/03/16 10:00 05/05/16 09:51 Tab-A-Vit - PO 1 tab DAILY [facility] Administration Nifedipine 90 mg 05/04/16 10:00 05/05/16 09:53 Procardia Xl - PO 90 mg DAILY [facility] Administration Polyethylene Glycol 17 gm 05/03/16 10:45 05/05/16 14:59 Miralax (For Daily Use) - PO 17 gm DAILY [facility] Administration Thiamine HCl 100 mg 05/03/16 10:00 05/05/16 09:52 Vitamin B1 - PO 100 mg DAILY [facility] Administration Laboratory Tests 05/01/16 05/04/16 05:20 15:10 MILADY Screen Positive H MILADY Speckled Pattern 1:320 H c-ANCA Pending Proteinase 3 (PR3) Pending p-ANCA Pending Atypical p-ANCA Pending Myeloperoxidase Ab Pending Double Strand DNA Ab Pending Glomerular Base Memb Ab Pending Impression 1. GABY 2. likely CKD 3. hypertensive emergency 4. DM 5. hyperlipidemia 6. hx migraine 7. pleural effusion 8. CVA 9. positive cocaine in urine 10. positive milady Plan - cont current meds - recommend rheum eval - monitor blood pressure - workup is in progress - she will need follow up as outpt - wound not restart metformin - will follow pt Dr David
[2016-05-05] MEDS: diphenhydrAMINE HCL 25 MG CAPSULE (FP) PO PRN (21:22)
[2016-05-05] MEDS: ATORVASTATIN CA 20 MG TABLET (FP) PO SCH (21:22)
[2016-05-06] MEDS: DOCUSATE SODIUM 100 MG CAPSULE (FP) PO SCH ×3 (06:06→21:46)
[2016-05-06] MEDS: INSULIN SLIDING SCALE (NOVOLOG) 1 VIAL SQ SCH ×4 (06:06→21:38)
[2016-05-06] MEDS: HEPARIN NA (PORCINE) 5,000 UNITS/ML 1ML VIAL SQ SCH ×3 (06:10→21:49)
[2016-05-06 07:23] LABS: MCH 28.5 pg (25.7-33.7); MCHC 32.3 g/dl (32.0-36.0); MEAN CELL VOLUME 88.1 fl (80-96); MEAN PLT VOLUME 8.2 fl (7.5-11.1); PLATELET COUNT 130 K/MM3 (134-434); RDW 15.5 % (11.6-15.6)
[2016-05-06 08:32] LABS: CALCIUM 7.8 mg/dL (8.5-10.1); CREATININE 3.2 mg/dL (0.55-1.02)
[2016-05-06] MEDS: hydrALAZINE HCL 25 MG TABLET (FP) PO SCH ×2 (11:05→21:46)
[2016-05-06] MEDS: BACITRACIN 30 GM TUBE TOPICAL OINTMENT TP SCH ×3 (11:06→22:21)
[2016-05-06] MEDS: MULTIVITAMINS (DAILY MVI) TABLET (FP) PO SCH (11:06)
[2016-05-06] MEDS: NIFEdipine E.R. 90 MG TABLET (FP) PO SCH (11:06)
[2016-05-06] MEDS: THIAMINE HCL 100 MG TABLET (FP) PO SCH (11:06)
[2016-05-06] MEDS: ASPIRIN 81 MG CHEWABLE TABLETS PO SCH (11:06)
[2016-05-06] MEDS: FOLIC ACID 1 MG TABLET (FP) PO SCH (11:06)
[2016-05-06] MEDS: POLYETHYLENE GLYCOL 3350 119 GM BTL PO SCH (11:09)
--- NOTE | 2016-05-06 12:52 | PN ---
Progress Note, Physician History of Present Illness: The patient is a 61 year old female with significant past medical history of hypertension, hyperlipidemia, and diabetes, who presents to the ED with 1 day of worsening right-sided weakness and left facial weakness. Patient reports she developed a headache yesterday and subsequently became dizzy with right-sided weakness and left facial weakness. She also reports slurred speech. She denies blurry vision, syncope, or numbness/tingling. - Current Medication List Current Medications: Active Medications Acetaminophen (Tylenol -) 650 mg PO Q6H PRN PRN Reason: FEVER OR PAIN Last Admin: 05/05/16 14:54 Dose: 650 mg Aspirin (Asa -) 81 mg PO DAILY [facility] Last Admin: 05/06/16 11:06 Dose: 81 mg Atorvastatin Calcium (Lipitor -) 20 mg PO HS [facility] Last Admin: 05/05/16 21:22 Dose: 20 mg Bacitracin (Bacitracin -) 1 applic TP BID [facility] Last Admin: 05/06/16 11:06 Dose: 1 applic Diphenhydramine HCl (Benadryl -) 25 mg PO Q6H PRN PRN Reason: FOR ITCHING Last Admin: 05/05/16 21:22 Dose: 25 mg Docusate Sodium (Colace -) 100 mg PO TID [facility] Last Admin: 05/06/16 06:06 Dose: Not Given Folic Acid (Folic Acid -) 1 mg PO DAILY [facility] Last Admin: 05/06/16 11:06 Dose: 1 mg Heparin Sodium (Porcine) (Heparin -) 5,000 unit SQ TID [facility] Last Admin: 05/06/16 06:10 Dose: 5,000 unit Hydralazine HCl (Apresoline -) 25 mg PO BID [facility] Last Admin: 05/06/16 11:05 Dose: 25 mg Insulin Aspart (Novolog Vial Sliding Scale -) 1 vial SQ ACHS [facility] PRN Reason: Protocol Last Admin: 05/06/16 10:33 Dose: Not Given Multivitamins/Minerals/Vitamin C (Tab-A-Vit -) 1 tab PO DAILY [facility] Last Admin: 05/06/16 11:06 Dose: 1 tab Nifedipine (Procardia Xl -) 90 mg PO DAILY [facility] Last Admin: 05/06/16 11:06 Dose: 90 mg Polyethylene Glycol (Miralax (For Daily Use) -) 17 gm PO DAILY [facility] Last Admin: 05/06/16 11:09 Dose: 17 gm Thiamine HCl (Vitamin B1 -) 100 mg PO DAILY [facility] Last Admin: 05/06/16 11:06 Dose: 100 mg - Objective Vital Signs: Vital Signs Temperature 98.2 F 05/06/16 10:00 Pulse Rate 89 05/06/16 11:44 Respiratory Rate 20 05/06/16 10:00 Blood Pressure 145/72 05/06/16 10:00 O2 Sat by Pulse Oximetry (%) 96 05/06/16 11:44 Eyes: Yes: WNL, Conjunctiva Clear, EOM Intact HENT: Yes: WNL, Atraumatic, Normocephalic Neck: Yes: WNL, Supple, Trachea Midline Cardiovascular: Yes: WNL, Regular Rate and Rhythm Respiratory: Yes: WNL, Regular, CTA Bilaterally Gastrointestinal: Yes: WNL, Normal Bowel Sounds Genitourinary: Yes: WNL Musculoskeletal: Yes: WNL Extremities: Yes: WNL Edema: No Integumentary: Yes: WNL Neurological: Yes: WNL, Alert, Oriented ...Motor Strength: WNL Psychiatric: Yes: WNL Labs: CBC, BMP 05/06/16 05:55 05/06/16 05:55 INR, PTT INR 0.97 (0.82-1.09) 04/30/16 06:30 Assessment/Plan - Problems (1) Alcohol abuse Assessment/Plan: pt says she stopped 3 months ago; Tox screen + for cocaine. Code(s): F10.10 - ALCOHOL ABUSE, UNCOMPLICATED (2) Cerebrovascular accident (CVA) Assessment/Plan: CT head: no acute or chronic pathology; however, has garbled speech, mild decreased right hand strength. MRI: subacute infarct vs lesion; contrast MRI suggested. Code(s): I63.9 - CEREBRAL INFARCTION, UNSPECIFIED Qualifiers: CVA mechanism: unspecified Qualified Code(s): I63.9 - Cerebral infarction, unspecified (3) Diabetes Code(s): E11.9 - TYPE 2 DIABETES MELLITUS WITHOUT COMPLICATIONS (4) Dizziness Code(s): R42 - DIZZINESS AND GIDDINESS (5) Hypercholesteremia Assessment/Plan: started atorvastatin Code(s): E78.0 - PURE HYPERCHOLESTEROLEMIA * DO NOT USE * (6) Hypertensive emergency Assessment/Plan: Off beta blockers due to cocaine in urine tox screen. On nifedipine ER. Started PO hydralazine; may increase to 200 mg total daily (in divided doses). ECHO: normal LVEF; mild LVH; mild TR and MR. Code(s): I10 - ESSENTIAL (PRIMARY) HYPERTENSION (7) Substance abuse Assessment/Plan: Urine tox screen : + for cocaine (pt denies using cocaine; was on Zoszyn). Admits now to >1 ppd cigarettes since age 20; quit several months ago. Agree with stopping metoprolol and starting nifedipine; PO hydralazine started. hx ETOH abuse (according to pt, quit several months ago). Code(s): F19.10 - OTHER PSYCHOACTIVE SUBSTANCE ABUSE, UNCOMPLICATED (8) Anemia Assessment/Plan: no overt source; f/u workup. Code(s): D64.9 - ANEMIA, UNSPECIFIED (9) Renal dysfunction Assessment/Plan: Abd US: morphologically normal kidneys. F/u BUN/Cr; avoid excessive dehydration. Code(s): N28.9 - DISORDER OF KIDNEY AND URETER, UNSPECIFIED (10) Right-sided chest pain Assessment/Plan: right sided chest and abdominal pain. CT abdomen 04/30/16: no acute pathology; right pleural effusion. f/u clinically. Code(s): R07.9 - CHEST PAIN, UNSPECIFIED
--- NOTE | 2016-05-06 15:31 | PN ---
Progress Note, Physician History of Present Illness: no new events patient stable - Current Medication List Current Medications: Active Medications Acetaminophen (Tylenol -) 650 mg PO Q6H PRN PRN Reason: FEVER OR PAIN Last Admin: 05/05/16 14:54 Dose: 650 mg Aspirin (Asa -) 81 mg PO DAILY [facility] Last Admin: 05/06/16 11:06 Dose: 81 mg Atorvastatin Calcium (Lipitor -) 20 mg PO HS [facility] Last Admin: 05/05/16 21:22 Dose: 20 mg Bacitracin (Bacitracin -) 1 applic TP BID [facility] Last Admin: 05/06/16 11:06 Dose: 1 applic Diphenhydramine HCl (Benadryl -) 25 mg PO Q6H PRN PRN Reason: FOR ITCHING Last Admin: 05/05/16 21:22 Dose: 25 mg Docusate Sodium (Colace -) 100 mg PO TID [facility] Last Admin: 05/06/16 14:35 Dose: 100 mg Folic Acid (Folic Acid -) 1 mg PO DAILY [facility] Last Admin: 05/06/16 11:06 Dose: 1 mg Heparin Sodium (Porcine) (Heparin -) 5,000 unit SQ TID [facility] Last Admin: 05/06/16 14:36 Dose: 5,000 unit Hydralazine HCl (Apresoline -) 25 mg PO BID [facility] Last Admin: 05/06/16 11:05 Dose: 25 mg Insulin Aspart (Novolog Vial Sliding Scale -) 1 vial SQ ACHS [facility] PRN Reason: Protocol Last Admin: 05/06/16 10:33 Dose: Not Given Multivitamins/Minerals/Vitamin C (Tab-A-Vit -) 1 tab PO DAILY [facility] Last Admin: 05/06/16 11:06 Dose: 1 tab Nifedipine (Procardia Xl -) 90 mg PO DAILY [facility] Last Admin: 05/06/16 11:06 Dose: 90 mg Polyethylene Glycol (Miralax (For Daily Use) -) 17 gm PO DAILY [facility] Last Admin: 05/06/16 11:09 Dose: 17 gm Thiamine HCl (Vitamin B1 -) 100 mg PO DAILY [facility] Last Admin: 05/06/16 11:06 Dose: 100 mg - Objective Vital Signs: Vital Signs Temperature 98.2 F 05/06/16 14:00 Pulse Rate 90 05/06/16 14:00 Respiratory Rate 18 05/06/16 14:00 Blood Pressure 156/59 05/06/16 14:00 O2 Sat by Pulse Oximetry (%) 96 05/06/16 11:44 Constitutional: Yes: No Distress, Calm Cardiovascular: Yes: Regular Rate and Rhythm Respiratory: Yes: Regular, CTA Bilaterally Gastrointestinal: Yes: Normal Bowel Sounds, Soft Musculoskeletal: Yes: WNL Extremities: Yes: Other Neurological: Yes: Alert, Oriented Psychiatric: Yes: Alert Labs: CBC, BMP 05/06/16 05:55 05/06/16 05:55 INR, PTT INR 0.97 (0.82-1.09) 04/30/16 06:30 Assessment/Plan toe improving 1. GABY 2. likely CKD 3. hypertensive emergency 4. DM 5. hyperlipidemia 6. hx migraine 7. pleural effusion 8. r/o CVA 9. positive cocaine in urine lymphangitis cellulitis of the toe plan continue current mgmt off of abx patient doing well
--- NOTE | 2016-05-06 15:55 | PN ---
Progress Note, Physician History of Present Illness: Pt seen and examined at bedside. She is awake and alert. She denies dysuria. - Current Medication List Current Medications: Active Medications Acetaminophen (Tylenol -) 650 mg PO Q6H PRN PRN Reason: FEVER OR PAIN Last Admin: 05/05/16 14:54 Dose: 650 mg Aspirin (Asa -) 81 mg PO DAILY [facility] Last Admin: 05/06/16 11:06 Dose: 81 mg Atorvastatin Calcium (Lipitor -) 20 mg PO HS [facility] Last Admin: 05/05/16 21:22 Dose: 20 mg Bacitracin (Bacitracin -) 1 applic TP BID [facility] Last Admin: 05/06/16 11:06 Dose: 1 applic Diphenhydramine HCl (Benadryl -) 25 mg PO Q6H PRN PRN Reason: FOR ITCHING Last Admin: 05/05/16 21:22 Dose: 25 mg Docusate Sodium (Colace -) 100 mg PO TID [facility] Last Admin: 05/06/16 14:35 Dose: 100 mg Folic Acid (Folic Acid -) 1 mg PO DAILY [facility] Last Admin: 05/06/16 11:06 Dose: 1 mg Heparin Sodium (Porcine) (Heparin -) 5,000 unit SQ TID [facility] Last Admin: 05/06/16 14:36 Dose: 5,000 unit Hydralazine HCl (Apresoline -) 25 mg PO BID [facility] Last Admin: 05/06/16 11:05 Dose: 25 mg Insulin Aspart (Novolog Vial Sliding Scale -) 1 vial SQ ACHS [facility] PRN Reason: Protocol Last Admin: 05/06/16 10:33 Dose: Not Given Multivitamins/Minerals/Vitamin C (Tab-A-Vit -) 1 tab PO DAILY [facility] Last Admin: 05/06/16 11:06 Dose: 1 tab Nifedipine (Procardia Xl -) 90 mg PO DAILY [facility] Last Admin: 05/06/16 11:06 Dose: 90 mg Polyethylene Glycol (Miralax (For Daily Use) -) 17 gm PO DAILY [facility] Last Admin: 05/06/16 11:09 Dose: 17 gm Thiamine HCl (Vitamin B1 -) 100 mg PO DAILY [facility] Last Admin: 05/06/16 11:06 Dose: 100 mg - Objective Vital Signs: Vital Signs Temperature 98.2 F 05/06/16 14:00 Pulse Rate 90 05/06/16 14:00 Respiratory Rate 18 05/06/16 14:00 Blood Pressure 156/59 05/06/16 14:00 O2 Sat by Pulse Oximetry (%) 96 05/06/16 11:44 Constitutional: Yes: Calm Eyes: Yes: Conjunctiva Clear HENT: Yes: Atraumatic Neck: Yes: Supple Cardiovascular: Yes: S1, S2 Respiratory: Yes: CTA Bilaterally Gastrointestinal: Yes: Soft Musculoskeletal: Yes: WNL Edema: No Neurological: Yes: Oriented Labs: CBC, BMP 05/06/16 05:55 05/06/16 05:55 INR, PTT INR 0.97 (0.82-1.09) 04/30/16 06:30 Assessment/Plan Current Medications Generic Name Dose Route Start Last Admin Trade Name Freq PRN Reason Stop Dose Admin Acetaminophen 650 mg 05/02/16 17:14 05/05/16 14:54 Tylenol - PO 650 mg Q6H PRN Administration FEVER OR PAIN Aspirin 81 mg 05/02/16 10:00 05/06/16 11:06 Asa - PO 81 mg DAILY JESSY Administration Atorvastatin Calcium 20 mg 05/01/16 22:00 05/05/16 21:22 Lipitor - PO 20 mg HS JESSY Administration Bacitracin 1 applic 05/01/16 22:00 05/06/16 11:06 Bacitracin - TP 1 applic BID JESSY Administration Diphenhydramine HCl 25 mg 05/05/16 14:14 05/05/16 21:22 Benadryl - PO 25 mg Q6H PRN Administration FOR ITCHING Docusate Sodium 100 mg 05/03/16 14:00 05/06/16 14:35 Colace - PO 100 mg TID JESSY Administration Folic Acid 1 mg 05/03/16 10:00 05/06/16 11:06 Folic Acid - PO 1 mg DAILY JESSY Administration Heparin Sodium (Porcine) 5,000 unit 05/01/16 22:00 05/06/16 14:36 Heparin - SQ 5,000 unit TID JESSY Administration Hydralazine HCl 25 mg 05/02/16 10:00 05/06/16 11:05 Apresoline - PO 25 mg BID JESSY Administration Insulin Aspart 1 vial 05/01/16 22:00 05/06/16 10:33 Novolog Vial Sliding Scale - SQ Not Given ACHS [facility] Protocol Multivitamins/Minerals/Vitamin C 1 tab 05/03/16 10:00 05/06/16 11:06 Tab-A-Vit - PO 1 tab DAILY JESSY Administration Nifedipine 90 mg 05/04/16 10:00 05/06/16 11:06 Procardia Xl - PO 90 mg DAILY [facility] Administration Polyethylene Glycol 17 gm 05/03/16 10:45 05/06/16 11:09 Miralax (For Daily Use) - PO 17 gm DAILY [facility]Y Administration Thiamine HCl 100 mg 05/03/16 10:00 05/06/16 11:06 Vitamin B1 - PO 100 mg DAILY [facility]ESSY Administration Laboratory Tests 05/04/16 15:10 Double Strand DNA Ab <1 Impression 1. GABY 2. likely CKD 3. hypertensive emergency 4. DM 5. hyperlipidemia 6. hx migraine 7. pleural effusion 8. CVA 9. positive cocaine in urine 10. positive milady Plan - renal workup in progress - will see pt in office - will need eval with rheum as well - ant ds dna is negative - monitor bp - wound not restart metformin - will follow pt Dr David
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
--- NOTE | 2016-05-06 17:15 | PN ---
Teaching Attending Note Name of Resident: Kim Henry ATTENDING PHYSICIAN STATEMENT I saw and evaluated the patient. I reviewed the resident's note and discussed the case with the resident. I agree with the resident's findings and plan as documented. SUBJECTIVE: Patient has no complaints. OBJECTIVE: Vital Signs Period Temp Pulse Resp BP Sys/Mancini Pulse Ox Last 24 Hr 97.9 F-98.7 F 87-94 18-20 140-157/59-73 96-99 GENERAL: The patient is awake, alert, and fully oriented, in no acute distress. LUNGS: Breath sounds equal, clear to auscultation bilaterally, no wheezes, no crackles, no accessory muscle use. HEART: Regular rate and rhythm, S1, S2 without murmur, rub or gallop. ABDOMEN: Soft, nontender, nondistended, normoactive bowel sounds, no guarding, no rebound, no hepatosplenomegaly, no masses. EXTREMITIES: 2+ pulses, warm, well-perfused, no edema. ASSESSMENT AND PLAN: This is a 61-year-old woman with a history of type 2 DM, HTN, hyperlipidemia, alcohol abuse who presented with right hand and leg weakness. She was admitted for hypertensive emergency. 1. Possible left cerebral peduncle infarct with right-sided weakness - Continue aspirin, Lipitor - Continue PT - Repeat MRI of brain in 1-2 months 2. Hypertensive emergency - Resolved 3. Hypertension - Continue Procardia, Hydralazine 4. Acute kidney injury on CKD, stage 3 vs stage 4 - Creatinine stable - Outpatient nephrology follow-up 5. Abrasion and cellulitis of right 1st toe - Completed antibiotics - Continue Bacitracin 6. Anemia, likely secondary to chronic illness - Transfused 1 unit PRBCs this admission - Hemoglobin stable 7. Generalized pruritus - Continue Benadryl as needed - Outpatient dermatology evaluation 8. Hyperlipidemia - Continue Lipitor 9. Type 2 diabetes mellitus - Continue Novolog sliding scale 10. Positive AVIS - Outpatient rheumatology evaluation 11. History of alcohol abuse - Continue multivitamin, thiamine, folic acid 12. Right-sided abdominal pain - Improved today - RUQ US negative 13. Disposition - Plan for subacute rehab
[2016-05-06] MEDS: ATORVASTATIN CA 20 MG TABLET (FP) PO SCH (21:46)
[2016-05-06] MEDS: ACETAMINOPHEN 325 MG TABLET (FP) PO PRN (21:46)
[2016-05-06] MEDS: diphenhydrAMINE HCL 25 MG CAPSULE (FP) PO PRN (21:46)
[2016-05-07] MEDS: HEPARIN NA (PORCINE) 5,000 UNITS/ML 1ML VIAL SQ SCH ×3 (06:07→21:03)
[2016-05-07] MEDS: DOCUSATE SODIUM 100 MG CAPSULE (FP) PO SCH ×3 (06:07→21:03)
[2016-05-07] MEDS: INSULIN SLIDING SCALE (NOVOLOG) 1 VIAL SQ SCH (06:09)
[2016-05-07] MEDS: FOLIC ACID 1 MG TABLET (FP) PO SCH (10:37)
[2016-05-07] MEDS: ASPIRIN 81 MG CHEWABLE TABLETS PO SCH (10:37)
[2016-05-07] MEDS: MULTIVITAMINS (DAILY MVI) TABLET (FP) PO SCH (10:37)
[2016-05-07] MEDS: hydrALAZINE HCL 25 MG TABLET (FP) PO SCH ×2 (10:37→21:04)
[2016-05-07] MEDS: NIFEdipine E.R. 90 MG TABLET (FP) PO SCH (10:37)
[2016-05-07] MEDS: THIAMINE HCL 100 MG TABLET (FP) PO SCH (10:37)
[2016-05-07] MEDS: BACITRACIN 30 GM TUBE TOPICAL OINTMENT TP SCH ×2 (10:37→21:05)
[2016-05-07] MEDS: POLYETHYLENE GLYCOL 3350 119 GM BTL PO SCH (10:38)
--- NOTE | 2016-05-07 11:09 | PN ---
Progress Note, BEEKEEPER - Note Progress Note: Selected Entries 05/05/16 05/05/16 05/05/16 09:00 12:53 18:34 Breakfast 75% Lunch 75% Supper 75% Temperature 05/06/16 05/06/16 05/06/16 02:00 06:00 10:00 Breakfast Lunch Supper Temperature 98.3 F 97.9 F 98.2 F 05/06/16 05/06/16 05/06/16 14:00 18:00 22:00 Breakfast Lunch Supper 100% Temperature 98.2 F 98.2 F 98.1 F 05/07/16 05/07/16 02:00 06:00 Breakfast Lunch Supper Temperature 98.2 F 97.8 F Swallowing reassessed. Doing well with modified diet. Still guzzling thin water with responsive cough. Educated pt and family regarding single sips of thin water, b/n meals only, following mouthcare. No continuous drinking or straw drinking with thin liquid trials.
--- NOTE | 2016-05-07 13:29 | PN ---
Progress Note, Physician Chief Complaint: Pt alert;resting on right side comfortably; denies chest or abdominal pain. History of Present Illness: The patient is a 61 year old female with significant past medical history of hypertension, hyperlipidemia, and diabetes, who presents to the ED with 1 day of worsening right-sided weakness and left facial weakness. Patient reports she developed a headache yesterday and subsequently became dizzy with right-sided weakness and left facial weakness. She also reports slurred speech. She denies blurry vision, syncope, or numbness/tingling. The patient denies fever, chills, cough, SOB, chest pain, and palpitations. The patient denies abdominal pain, nausea, vomiting, and diarrhea. Allergies: NKDA Social History: Former ETOH abuse (quit 3 months ago); no tobacco or drug use reported. Past Surgical History: None reported PCP: None reported Brother (alcoholic) had CVA at age 25. - Current Medication List Current Medications: Active Medications Acetaminophen (Tylenol -) 650 mg PO Q6H PRN PRN Reason: FEVER OR PAIN Last Admin: 05/06/16 21:46 Dose: 650 mg Aspirin (Asa -) 81 mg PO DAILY [facility] Last Admin: 05/07/16 10:37 Dose: 81 mg Atorvastatin Calcium (Lipitor -) 20 mg PO HS [facility] Last Admin: 05/06/16 21:46 Dose: 20 mg Bacitracin (Bacitracin -) 1 applic TP BID [facility] Last Admin: 05/07/16 10:37 Dose: 1 applic Diphenhydramine HCl (Benadryl -) 25 mg PO Q6H PRN PRN Reason: FOR ITCHING Last Admin: 05/06/16 21:46 Dose: 25 mg Docusate Sodium (Colace -) 100 mg PO TID [facility] Last Admin: 05/07/16 06:07 Dose: 100 mg Folic Acid (Folic Acid -) 1 mg PO DAILY [facility] Last Admin: 05/07/16 10:37 Dose: 1 mg Heparin Sodium (Porcine) (Heparin -) 5,000 unit SQ TID [facility] Last Admin: 05/07/16 06:07 Dose: 5,000 unit Hydralazine HCl (Apresoline -) 25 mg PO BID [facility] Last Admin: 05/07/16 10:37 Dose: 25 mg Insulin Aspart (Novolog Vial Sliding Scale -) 1 vial SQ ACBK [facility] PRN Reason: Protocol Last Admin: 05/07/16 06:09 Dose: Not Given Multivitamins/Minerals/Vitamin C (Tab-A-Vit -) 1 tab PO DAILY [facility] Last Admin: 05/07/16 10:37 Dose: 1 tab Nifedipine (Procardia Xl -) 90 mg PO DAILY [facility] Last Admin: 05/07/16 10:37 Dose: 90 mg Polyethylene Glycol (Miralax (For Daily Use) -) 17 gm PO DAILY [facility] Last Admin: 05/07/16 10:38 Dose: 17 gm Thiamine HCl (Vitamin B1 -) 100 mg PO DAILY [facility] Last Admin: 05/07/16 10:37 Dose: 100 mg - Objective Vital Signs: Vital Signs Temperature 97.8 F 05/07/16 06:00 Pulse Rate 97 H 05/07/16 06:00 Respiratory Rate 20 05/07/16 06:00 Blood Pressure 130/69 05/07/16 06:00 O2 Sat by Pulse Oximetry (%) 96 05/06/16 21:00 Constitutional: Yes: No Distress Eyes: Yes: WNL HENT: Yes: WNL Neck: Yes: WNL Cardiovascular: Yes: Regular Rate and Rhythm Respiratory: Yes: Regular Gastrointestinal: Yes: Soft. No: Tenderness ...Rectal Exam: Yes: Deferred Genitourinary: Yes: Anuria Edema: No Peripheral Pulses WNL: Yes Integumentary: Yes: WNL Neurological: Yes: Alert, Oriented, Weakness Psychiatric: Yes: Alert, Oriented Labs: CBC, BMP 05/06/16 05:55 05/06/16 05:55 INR, PTT INR 0.97 (0.82-1.09) 04/30/16 06:30 - ....Imaging Ultrasound: Report Reviewed (no acute abdominal pathology; right pleural effusion) Problem List - Problems (1) Alcohol abuse Assessment/Plan: pt says she stopped 3 months ago; Tox screen + for cocaine. (2) Cerebrovascular accident (CVA) Assessment/Plan: CT head: no acute or chronic pathology; however, has garbled speech, mild decreased right hand strength. MRI: subacute infarct vs lesion; contrast MRI suggested. Increase daily physical therapy (5) Hypercholesteremia Assessment/Plan: started atorvastatin (6) Hypertensive emergency Assessment/Plan: Off beta blockers due to cocaine in urine tox screen. On nifedipine ER. Started PO hydralazine; may increase to 200 mg total daily (in divided doses). ECHO: normal LVEF; mild LVH; mild TR and MR. (7) Substance abuse Assessment/Plan: Urine tox screen : + for cocaine (pt denies using cocaine; was on Zoszyn). Admits now to >1 ppd cigarettes since age 20; quit several months ago. Agree with stopping metoprolol and starting nifedipine; PO hydralazine started. hx ETOH abuse (according to pt, quit several months ago). (8) Anemia Assessment/Plan: no overt source; f/u workup. Code(s): D64.9 - ANEMIA, UNSPECIFIED Qualifiers: Anemia type: unspecified type Qualified Code(s): D64.9 - Anemia, unspecified (9) Renal dysfunction Assessment/Plan: Abd US: morphologically normal kidneys. F/u BUN/Cr; avoid excessive dehydration. (10) Right-sided chest pain Assessment/Plan: right sided chest and abdominal pain. CT abdomen 04/30/16: no acute pathology; right pleural effusion. f/u clinically.
--- NOTE | 2016-05-07 13:38 | PN ---
Progress Note, Physician History of Present Illness: no new events cardio new note noted - Current Medication List Current Medications: Active Medications Acetaminophen (Tylenol -) 650 mg PO Q6H PRN PRN Reason: FEVER OR PAIN Last Admin: 05/06/16 21:46 Dose: 650 mg Aspirin (Asa -) 81 mg PO DAILY [facility] Last Admin: 05/07/16 10:37 Dose: 81 mg Atorvastatin Calcium (Lipitor -) 20 mg PO HS [facility] Last Admin: 05/06/16 21:46 Dose: 20 mg Bacitracin (Bacitracin -) 1 applic TP BID [facility] Last Admin: 05/07/16 10:37 Dose: 1 applic Diphenhydramine HCl (Benadryl -) 25 mg PO Q6H PRN PRN Reason: FOR ITCHING Last Admin: 05/06/16 21:46 Dose: 25 mg Docusate Sodium (Colace -) 100 mg PO TID [facility] Last Admin: 05/07/16 06:07 Dose: 100 mg Folic Acid (Folic Acid -) 1 mg PO DAILY [facility] Last Admin: 05/07/16 10:37 Dose: 1 mg Heparin Sodium (Porcine) (Heparin -) 5,000 unit SQ TID [facility] Last Admin: 05/07/16 06:07 Dose: 5,000 unit Hydralazine HCl (Apresoline -) 25 mg PO BID [facility] Last Admin: 05/07/16 10:37 Dose: 25 mg Insulin Aspart (Novolog Vial Sliding Scale -) 1 vial SQ ACBK [facility] PRN Reason: Protocol Last Admin: 05/07/16 06:09 Dose: Not Given Multivitamins/Minerals/Vitamin C (Tab-A-Vit -) 1 tab PO DAILY [facility] Last Admin: 05/07/16 10:37 Dose: 1 tab Nifedipine (Procardia Xl -) 90 mg PO DAILY [facility] Last Admin: 05/07/16 10:37 Dose: 90 mg Polyethylene Glycol (Miralax (For Daily Use) -) 17 gm PO DAILY [facility] Last Admin: 05/07/16 10:38 Dose: 17 gm Thiamine HCl (Vitamin B1 -) 100 mg PO DAILY [facility] Last Admin: 05/07/16 10:37 Dose: 100 mg - Objective Vital Signs: Vital Signs Temperature 97.8 F 05/07/16 06:00 Pulse Rate 97 H 05/07/16 06:00 Respiratory Rate 20 05/07/16 06:00 Blood Pressure 130/69 05/07/16 06:00 O2 Sat by Pulse Oximetry (%) 96 05/06/16 21:00 Constitutional: Yes: No Distress, Calm HENT: Yes: Atraumatic Cardiovascular: Yes: Regular Rate and Rhythm Respiratory: Yes: Regular, CTA Bilaterally Gastrointestinal: Yes: Normal Bowel Sounds, Soft Musculoskeletal: Yes: WNL Extremities: Yes: Other Wound/Incision: Yes: Clean/Dry Neurological: Yes: Alert, Oriented Psychiatric: Yes: Alert Labs: CBC, BMP 05/06/16 05:55 05/06/16 05:55 INR, PTT INR 0.97 (0.82-1.09) 04/30/16 06:30 Assessment/Plan toe improving 1. GABY 2. likely CKD 3. hypertensive emergency 4. DM 5. hyperlipidemia 6. hx migraine 7. pleural effusion 8. r/o CVA 9. positive cocaine in urine lymphangitis cellulitis of the toe plan continue current mgmt off of abx patient doing well
--- NOTE | 2016-05-07 13:53 | PN ---
Progress Note, Physician History of Present Illness: Pt seen and examined at bedside. She is awake and alert. - Current Medication List Current Medications: Active Medications Acetaminophen (Tylenol -) 650 mg PO Q6H PRN PRN Reason: FEVER OR PAIN Last Admin: 05/06/16 21:46 Dose: 650 mg Aspirin (Asa -) 81 mg PO DAILY [facility] Last Admin: 05/07/16 10:37 Dose: 81 mg Atorvastatin Calcium (Lipitor -) 20 mg PO HS [facility] Last Admin: 05/06/16 21:46 Dose: 20 mg Bacitracin (Bacitracin -) 1 applic TP BID [facility] Last Admin: 05/07/16 10:37 Dose: 1 applic Diphenhydramine HCl (Benadryl -) 25 mg PO Q6H PRN PRN Reason: FOR ITCHING Last Admin: 05/06/16 21:46 Dose: 25 mg Docusate Sodium (Colace -) 100 mg PO TID [facility] Last Admin: 05/07/16 06:07 Dose: 100 mg Folic Acid (Folic Acid -) 1 mg PO DAILY [facility] Last Admin: 05/07/16 10:37 Dose: 1 mg Heparin Sodium (Porcine) (Heparin -) 5,000 unit SQ TID [facility] Last Admin: 05/07/16 06:07 Dose: 5,000 unit Hydralazine HCl (Apresoline -) 25 mg PO BID [facility] Last Admin: 05/07/16 10:37 Dose: 25 mg Insulin Aspart (Novolog Vial Sliding Scale -) 1 vial SQ ACBK [facility] PRN Reason: Protocol Last Admin: 05/07/16 06:09 Dose: Not Given Multivitamins/Minerals/Vitamin C (Tab-A-Vit -) 1 tab PO DAILY [facility] Last Admin: 05/07/16 10:37 Dose: 1 tab Nifedipine (Procardia Xl -) 90 mg PO DAILY [facility] Last Admin: 05/07/16 10:37 Dose: 90 mg Polyethylene Glycol (Miralax (For Daily Use) -) 17 gm PO DAILY [facility] Last Admin: 05/07/16 10:38 Dose: 17 gm Thiamine HCl (Vitamin B1 -) 100 mg PO DAILY [facility] Last Admin: 05/07/16 10:37 Dose: 100 mg - Objective Vital Signs: Vital Signs Temperature 97.8 F 05/07/16 06:00 Pulse Rate 97 H 05/07/16 06:00 Respiratory Rate 20 0228/17 06:00 Blood Pressure 130/69 05/07/16 06:00 O2 Sat by Pulse Oximetry (%) 96 05/06/16 21:00 Constitutional: Yes: Calm Eyes: Yes: Conjunctiva Clear HENT: Yes: Atraumatic Neck: Yes: Supple Cardiovascular: Yes: S1, S2 Respiratory: Yes: CTA Bilaterally Gastrointestinal: Yes: Soft Genitourinary: Yes: WNL Edema: No Integumentary: Yes: Skin Tear Neurological: Yes: Oriented Psychiatric: Yes: Oriented Labs: CBC, BMP 05/06/16 05:55 05/06/16 05:55 INR, PTT INR 0.97 (0.82-1.09) 04/30/16 06:30 Assessment/Plan Current Medications Generic Name Dose Route Start Last Admin Trade Name Freq PRN Reason Stop Dose Admin Acetaminophen 650 mg 05/02/16 17:14 05/06/16 21:46 Tylenol - PO 650 mg Q6H PRN Administration FEVER OR PAIN Aspirin 81 mg 05/02/16 10:00 05/07/16 10:37 Asa - PO 81 mg DAILY JESSY Administration Atorvastatin Calcium 20 mg 05/01/16 22:00 05/06/16 21:46 Lipitor - PO 20 mg HS JESSY Administration Bacitracin 1 applic 05/01/16 22:00 05/07/16 10:37 Bacitracin - TP 1 applic BID JESSY Administration Diphenhydramine HCl 25 mg 05/05/16 14:14 05/06/16 21:46 Benadryl - PO 25 mg Q6H PRN Administration FOR ITCHING Docusate Sodium 100 mg 05/03/16 14:00 05/07/16 06:07 Colace - PO 100 mg TID JESSY Administration Folic Acid 1 mg 05/03/16 10:00 05/07/16 10:37 Folic Acid - PO 1 mg DAILY JESSY Administration Heparin Sodium (Porcine) 5,000 unit 05/01/16 22:00 05/07/16 06:07 Heparin - SQ 5,000 unit TID JESSY Administration Hydralazine HCl 25 mg 05/02/16 10:00 05/07/16 10:37 Apresoline - PO 25 mg BID JESSY Administration Insulin Aspart 1 vial 05/07/16 07:00 05/07/16 06:09 Novolog Vial Sliding Scale - SQ Not Given ACBK [facility] Protocol Multivitamins/Minerals/Vitamin C 1 tab 05/03/16 10:00 05/07/16 10:37 Tab-A-Vit - PO 1 tab DAILY JESSY Administration Nifedipine 90 mg 05/04/16 10:00 05/07/16 10:37 Procardia Xl - PO 90 mg DAILY JESSY Administration Polyethylene Glycol 17 gm 05/03/16 10:45 05/07/16 10:38 Miralax (For Daily Use) - PO 17 gm DAILY JESSY Administration Thiamine HCl 100 mg 05/03/16 10:00 05/07/16 10:37 Vitamin B1 - PO 100 mg DAILY JESSY Administration Impression 1. GABY 2. likely CKD 3. hypertensive emergency 4. DM 5. hyperlipidemia 6. hx migraine 7. pleural effusion 8. CVA 9. positive cocaine in urine 10. positive milady Plan - renal function stabilizing - cont current meds - will see pt in office - may need kidney biopsy however will need to be off of asa for a week prior, will set up as outpt - will need eval with rheum as well - cont PT/rehab - will follow pt Dr David
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
--- NOTE | 2016-05-07 15:44 | PN ---
Teaching Attending Note Name of Resident: Kim Henry ATTENDING PHYSICIAN STATEMENT I saw and evaluated the patient. I reviewed the resident's note and discussed the case with the resident. I agree with the resident's findings and plan as documented. SUBJECTIVE: Patient has no complaints. OBJECTIVE: Vital Signs Period Temp Pulse Resp BP Sys/Mancini Pulse Ox Last 24 Hr 97 F-98.2 F 86-101 18-20 108-166/57-76 96-97 GENERAL: The patient is awake, alert, and fully oriented, in no acute distress. LUNGS: Breath sounds equal, clear to auscultation bilaterally, no wheezes, no crackles, no accessory muscle use. HEART: Regular rate and rhythm, S1, S2 without murmur, rub or gallop. ABDOMEN: Soft, nontender, nondistended, normoactive bowel sounds, no guarding, no rebound, no hepatosplenomegaly, no masses. EXTREMITIES: 2+ pulses, warm, well-perfused, no edema. ASSESSMENT AND PLAN: This is a 61-year-old woman with a history of type 2 DM, HTN, hyperlipidemia, alcohol abuse who presented with right hand and leg weakness. She was admitted for hypertensive emergency. 1. Possible left cerebral peduncle infarct with right-sided weakness - Continue aspirin, Lipitor - Continue PT - ambulated 5 feet with ataxic gait - Repeat MRI of brain in 1-2 months 2. Hypertensive emergency - Resolved 3. Hypertension - Continue Procardia, Hydralazine 4. Acute kidney injury on CKD, stage 3 vs stage 4 - Creatinine stable - Outpatient nephrology follow-up 5. Abrasion and cellulitis of right 1st toe - Completed antibiotics - Continue Bacitracin 6. Anemia, likely secondary to chronic illness - Transfused 1 unit PRBCs this admission - Hemoglobin stable 7. Generalized pruritus - Continue Benadryl as needed - Outpatient dermatology evaluation 8. Hyperlipidemia - Continue Lipitor 9. Type 2 diabetes mellitus - Continue Novolog sliding scale 10. Positive AVIS - Outpatient rheumatology evaluation 11. History of alcohol abuse - Continue multivitamin, thiamine, folic acid 12. Right-sided abdominal pain - Resolved - RUQ US negative
[2016-05-07] MEDS: ATORVASTATIN CA 20 MG TABLET (FP) PO SCH (21:04)
[2016-05-07] MEDS: ACETAMINOPHEN 325 MG TABLET (FP) PO PRN (21:04)
[2016-05-08 00:06] LABS: C-ANCA <1:20 titer (Neg:<1:20); MYELOPEROXIDASE ANTIBODY <9.0 U/mL (0.0-9.0); P-ANCA <1:20 titer (Neg:<1:20); PROTEINASE-3 ANTIBODY <3.5 U/mL (0.0-3.5)
[2016-05-08] MEDS: HEPARIN NA (PORCINE) 5,000 UNITS/ML 1ML VIAL SQ SCH ×3 (06:29→21:08)
[2016-05-08] MEDS: DOCUSATE SODIUM 100 MG CAPSULE (FP) PO SCH ×3 (06:29→21:08)
[2016-05-08] MEDS: INSULIN SLIDING SCALE (NOVOLOG) 1 VIAL SQ SCH (06:32)
--- NOTE | 2016-05-08 08:43 | PN ---
Teaching Attending Note Name of Resident: Kim Henry ATTENDING PHYSICIAN STATEMENT I saw and evaluated the patient. I reviewed the resident's note and discussed the case with the resident. I agree with the resident's findings and plan as documented. Vital Signs Temperature 98.2 F 05/08/16 06:00 Pulse Rate 92 H 05/08/16 06:00 Respiratory Rate 18 05/08/16 06:00 Blood Pressure 144/61 05/08/16 06:00 O2 Sat by Pulse Oximetry (%) 96 05/07/16 21:00 CBCD WBC 5.0 K/mm3 (4.0-10.0) 05/06/16 05:55 RBC 2.98 M/mm3 (3.60-5.2) L 05/06/16 05:55 Hgb 8.5 GM/dL (10.7-15.3) L 05/06/16 05:55 Hct 26.2 % (32.4-45.2) L 05/06/16 05:55 MCV 88.1 fl (80-96) 05/06/16 05:55 MCHC 32.3 g/dl (32.0-36.0) 05/06/16 05:55 RDW 15.5 % (11.6-15.6) 05/06/16 05:55 Plt Count 130 K/MM3 (134-434) L 05/06/16 05:55 MPV 8.2 fl (7.5-11.1) 05/06/16 05:55 CMP Sodium 143 mmol/L (136-145) 05/06/16 05:55 Potassium 5.1 mmol/L (3.5-5.1) 05/06/16 05:55 Chloride 115 mmol/L (98-107) H 05/06/16 05:55 Carbon Dioxide 20 mmol/L (21-32) L 05/06/16 05:55 Anion Gap 8 (8-16) 05/06/16 05:55 BUN 40 mg/dL (7-18) H 05/06/16 05:55 Creatinine 3.2 mg/dL (0.55-1.02) H 05/06/16 05:55 Creat Clearance w eGFR 13.82 (>60) 05/02/16 05:10 Random Glucose 80 mg/dL (74-106) 05/06/16 05:55 Calcium 7.8 mg/dL (8.5-10.1) L 05/06/16 05:55 Total Bilirubin 0.5 mg/dL (0.2-1.0) D 05/02/16 05:10 AST 21 U/L (15-37) D 05/02/16 05:10 ALT 13 U/L (12-78) 05/02/16 05:10 Alkaline Phosphatase 148 U/L (45-117) H 05/02/16 05:10 Total Protein 6.0 g/dl (6.4-8.2) L 05/02/16 05:10 Albumin 2.1 g/dl (3.4-5.0) L 05/02/16 05:10 CARDIAC ENZYMES Creatine Kinase 44 IU/L (26-192) 05/01/16 05:20 Troponin I 0.05 ng/ml (0.00-0.05) 05/01/16 05:20 Current Medications Generic Name Dose Route Start Last Admin Trade Name Freq PRN Reason Stop Dose Admin Acetaminophen 650 mg 05/02/16 17:14 05/07/16 21:04 Tylenol - PO 650 mg Q6H PRN Administration FEVER OR PAIN Aspirin 81 mg 05/02/16 10:00 05/07/16 10:37 Asa - PO 81 mg DAILY JESSY Administration Atorvastatin Calcium 20 mg 05/01/16 22:00 05/07/16 21:04 Lipitor - PO 20 mg HS JESSY Administration Bacitracin 1 applic 05/01/16 22:00 05/07/16 21:05 Bacitracin - TP 1 applic BID JESSY Administration Diphenhydramine HCl 25 mg 05/05/16 14:14 05/06/16 21:46 Benadryl - PO 25 mg Q6H PRN Administration FOR ITCHING Docusate Sodium 100 mg 05/03/16 14:00 05/08/16 06:29 Colace - PO 100 mg TID JESSY Administration Folic Acid 1 mg 05/03/16 10:00 05/07/16 10:37 Folic Acid - PO 1 mg DAILY JESSY Administration Heparin Sodium (Porcine) 5,000 unit 05/01/16 22:00 05/08/16 06:29 Heparin - SQ 5,000 unit TID JESSY Administration Hydralazine HCl 25 mg 05/02/16 10:00 05/07/16 21:04 Apresoline - PO 25 mg BID JESSY Administration Insulin Aspart 1 vial 05/07/16 07:00 05/08/16 06:32 Novolog Vial Sliding Scale - SQ Not Given ACBK [facility] Protocol Multivitamins/Minerals/Vitamin C 1 tab 05/03/16 10:00 05/07/16 10:37 Tab-A-Vit - PO 1 tab DAILY JESSY Administration Nifedipine 90 mg 05/04/16 10:00 05/07/16 10:37 Procardia Xl - PO 90 mg DAILY JESSY Administration Polyethylene Glycol 17 gm 05/03/16 10:45 05/07/16 10:38 Miralax (For Daily Use) - PO 17 gm DAILY JESSY Administration Thiamine HCl 100 mg 05/03/16 10:00 05/07/16 10:37 Vitamin B1 - PO 100 mg DAILY JESSY Administration Home Medications Medication Instructions Recorded Meclizine HCl [Antivert -] 25 mg PO TID #21 tablet 08/17/13 Unobtainable Home Med List 0 dose .ROUTE UTDICT 08/17/13 Amlodipine Besylate [Norvasc -] 5 mg PO DAILY #30 tablet 08/20/13 Folic Acid - 1 mg PO DAILY #30 tablet 08/20/13 Metformin HCl [Glucophage -] 500 mg PO BID #60 tablet 08/20/13 Multivitamins [Multivit ([facility] 1 tab PO DAILY #30 tab 08/20/13 Formulary)] Pantoprazole Sodium [Protonix -] 40 mg PO DAILY #30 tablet.ec 08/20/13 Thiamine HCl [Vitamin B1 -] 100 mg PO DAILY #30 tablet 08/20/13 Calamine/Zinc Oxide [Qc Calamine 5 ml TP BID #177 ml 08/05/15 Lotion] Hydroxyzine HCl [Atarax -] 25 mg PO TID #21 tablet 08/05/15 Amox-Tr/K Cl [Augmentin 500-125mg 1 tab PO BID@0800,1730 #10 tablet 01/05/16 Tablet -] Clindamycin [Cleocin -] 300 mg PO Q6HPO #16 capsule 01/05/16 Docusate Sodium [Colace -] 100 mg PO BID #14 capsule 01/05/16 Ferrous Sulfate [Feosol] 325 mg PO TIDCM #90 ud 10/28/16 Hydroxyzine HCl [Atarax -] 25 mg PO Q6H PRN #20 tablet 01/05/16 Labetalol HCl [Normodyne -] 400 mg PO BID #120 tablet 01/05/16 Lactobacillus Acidophilus [Bacid -] 1 each PO DAILY #7 capsule 01/05/16 Nifedipine ER [Procardia XL -] 30 mg PO DAILY #30 tab.er.24 01/05/16 Quetiapine Fumarate [Seroquel -] 25 mg PO BID #60 tablet 01/05/16 GENERAL: The patient is awake, alert, and fully oriented, in no acute distress. LUNGS: Breath sounds equal, clear to auscultation bilaterally, no wheezes, no crackles, no accessory muscle use. HEART: Regular rate and rhythm, S1, S2 without murmur, rub or gallop. ABDOMEN: Soft, nontender, nondistended, normoactive bowel sounds, no guarding, no rebound, no hepatosplenomegaly, no masses. EXTREMITIES: 2+ pulses, warm, well-perfused, no edema. Neuro: Ataxic gait Urine Test Results Urine Color Straw 04/30/16 18:07 Urine Appearance Clear 04/30/16 18:07 Urine pH 6.0 (5.0-8.0) 04/30/16 18:07 Ur Specific [place] 1.011 (1.001-1.035) 04/30/16 18:07 Urine Protein 3+ (NEGATIVE) H D 04/30/16 18:07 Urine Glucose (UA) 2+ (NEGATIVE) H 04/30/16 18:07 Urine Ketones Negative (NEGATIVE) 04/30/16 18:07 Urine Blood 1+ (NEGATIVE) H 04/30/16 18:07 Urine Nitrite Negative (NEGATIVE) 04/30/16 18:07 Urine Bilirubin Negative (NEGATIVE) 04/30/16 18:07 Ur Leukocyte Esterase Negative (NEGATIVE) 04/30/16 18:07 Urine RBC 19 /hpf (0-3) 04/30/16 18:07 Urine WBC 5 /hpf (3-5) 04/30/16 18:07 Ur Epithelial Cells Moderate /hpf (FEW) 04/30/16 18:07 Provider Orders Category Date Time Status Decision to Admit to Hospital Routine Admission 04/30/16 09:36 Active PACKED CELLS Stat Blood Bank 04/30/16 06:30 Completed RETYPEPAT Stat Blood Bank 04/30/16 08:10 Completed TYPE AND SCREEN Stat Blood Bank 04/30/16 06:30 Completed ABDOMEN & PELVIS CT W/O CONTR [CT] Stat CT Scan 04/30/16 06:[address] (STROKE) [CT] Stat CT Scan 04/30/16 06:28 Completed ECHO W/DOPPLER,M MODE & COLOR* [CARD] Routine Cardiology 04/30/16 15:00 Completed EKG [ELECTROCARDIOGRAM] [CARD] Routine Cardiology 05/01/16 10:39 Completed ELECTROCARDIOGRAM [CARD] Stat Cardiology 04/30/16 06:28 Completed BGM (Blood Glucose Monitoring) ACBK Care 04/30/16 15:32 Active Cardiac Monitoring QSHIFT Care 04/30/16 06:28 Active EKG needed NOW Care 04/30/16 06:29 Completed Early ambulation QS Care 05/07/16 18:28 Active HOB Elevated 30-45 Degrees QSHIFT Care 04/30/16 06:28 Active IV - Insert 2 lines NOW Care 04/30/16 06:28 Completed Insert Saline Lock NOW Care 04/30/16 06:28 Completed Isolation Precautions As directed Care 05/02/16 13:44 Active Neuro Check ASDIR Care 04/30/16 06:28 Active RN-See BBK Order, Packed Cells ASDIR Care 05/01/16 17:44 Completed SCDs, apply Both legs Care 05/07/16 18:28 Active Vital Signs Q4H Care 04/30/16 06:28 Active Consult [Physician Consultation] Physician 1 Cons 04/30/16 Ordered Consult [Physician Consultation] Physician 1 Cons 04/30/16 Ordered Consult [Physician Consultation] Physician 1 Cons 05/07/16 11:59 Ordered Consult [Physician Consultation] Physician 2 Cons 04/30/16 Ordered Physician Consultation Physician 1 Cons 05/01/16 Ordered Speech / Swallow Consult Routine Cons 04/30/16 14:44 Ordered Barium Swallow Tray As directed Diet 05/02/16 Ordered Diabetic/Sodium Diet [DT] Diet 04/30/16 Lunch Completed Dysphagia Chopped (Ground) [DT] Diet 05/01/16 Lunch Active Nothing by Mouth [DT] Diet 04/30/16 06:28 Completed ANTIGLOMERULAR BASEMENT MEN.AB Stat Lab 05/04/16 15:10 Results ANTINUCLEAR AB W/RFX Routine Lab 05/01/16 05:20 Completed BASIC METABOLIC PANEL Routine Lab 05/03/16 05:10 Completed BMP [BASIC METABOLIC PANEL] Routine Lab 05/01/16 05:20 Completed BMP [BASIC METABOLIC PANEL] Routine Lab 05/06/16 05:55 Completed BMP [BASIC METABOLIC PANEL] Stat Lab 05/04/16 08:30 Completed C-ANCA & P-ANCA Stat Lab 05/04/16 15:10 Results CARDIAC PROFILE ([facility]) Routine Lab 05/01/16 05:20 Completed CARDIAC PROFILE ([facility]) Stat Lab 04/30/16 06:30 Completed CBC WITH DIFFERENTIAL Routine Lab 05/02/16 05:10 Completed CBC WITH DIFFERENTIAL Stat Lab 04/30/16 06:30 Completed CBC [COMPLETE BLOOD COUNT] Routine Lab 05/01/16 05:20 Completed CBC [COMPLETE BLOOD COUNT] Routine Lab 05/01/16 15:15 Completed CBC [COMPLETE BLOOD COUNT] Stat Lab 05/04/16 08:30 Completed CHOLESTEROL Stat Lab 04/30/16 06:30 Completed COMP METABOLIC PANEL Routine Lab 05/02/16 05:10 Completed COMP METABOLIC PANEL Stat Lab 04/30/16 06:30 Completed COMPLETE BLOOD COUNT Routine Lab 05/03/16 05:10 Completed COMPLETE BLOOD COUNT Routine Lab 05/06/16 05:55 Completed DNA [id number] Stat Lab 05/04/16 15:10 Results DRUG SCREEN,UR ER- [facility] Stat Lab 04/30/16 18:07 Completed ELECTROLYTES,URINE Stat Lab 04/30/16 18:07 Completed FE & TIBC Routine Lab 05/01/16 05:20 Completed FERRITIN Routine Lab 05/01/16 05:20 Completed HDL CHOLESTEROL Stat Lab 04/30/16 06:30 Completed HEMOGLOBIN A1C Routine Lab 05/03/16 05:10 Completed HEPATITIS A & B PANEL Routine Lab 05/01/16 05:20 Completed HgbA1C [HEMOGLOBIN A1C] Stat Lab 04/30/16 11:08 Completed LDL CHOLESTEROL (ONLY [facility]) Stat Lab 04/30/16 06:30 Completed LIPID PROFILE ([facility] ONLY) Routine Lab 05/03/16 05:10 Completed MAGNESIUM Routine Lab 05/01/16 05:20 Completed MAGNESIUM Routine Lab 05/02/16 05:10 Completed PHOSPHOROUS Routine Lab 05/01/16 05:20 Completed PHOSPHOROUS Routine Lab 05/02/16 05:10 Completed POC GLUCOSE TESTING Routine Lab 04/30/16 06:20 Completed POC GLUCOSE TESTING Routine Lab 04/30/16 17:56 Completed POC GLUCOSE TESTING Routine Lab 04/30/16 22:01 Completed POC GLUCOSE TESTING Routine Lab 05/01/16 06:34 Completed POC GLUCOSE TESTING Routine Lab 05/01/16 11:08 Completed POC GLUCOSE TESTING Routine Lab 05/01/16 17:18 Completed POC GLUCOSE TESTING Routine Lab 05/01/16 21:42 Completed POC GLUCOSE TESTING Routine Lab 05/02/16 06:09 Completed POC GLUCOSE TESTING Routine Lab 05/02/16 11:11 Completed POC GLUCOSE TESTING Routine Lab 05/02/16 16:53 Completed POC GLUCOSE TESTING Routine Lab 05/02/16 21:30 Completed POC GLUCOSE TESTING Routine Lab 05/03/16 05:56 Completed POC GLUCOSE TESTING Routine Lab 05/03/16 11:59 Completed POC GLUCOSE TESTING Routine Lab 05/03/16 17:33 Completed POC GLUCOSE TESTING Routine Lab 05/03/16 22:45 Completed POC GLUCOSE TESTING Routine Lab 05/04/16 06:31 Completed POC GLUCOSE TESTING Routine Lab 05/04/16 12:14 Completed POC GLUCOSE TESTING Routine Lab 05/04/16 17:42 Completed POC GLUCOSE TESTING Routine Lab 05/04/16 20:53 Completed POC GLUCOSE TESTING Routine Lab 05/05/16 05:19 Completed POC GLUCOSE TESTING Routine Lab 05/05/16 12:26 Completed POC GLUCOSE TESTING Routine Lab 05/05/16 16:39 Completed POC GLUCOSE TESTING Routine Lab 05/05/16 21:29 Completed POC GLUCOSE TESTING Routine Lab 05/06/16 06:01 Completed POC GLUCOSE TESTING Routine Lab 05/07/16 06:07 Completed POC GLUCOSE TESTING Routine Lab 05/08/16 06:22 Completed PT/INR (PROTHROMBIN TIME) Stat Lab 04/30/16 06:30 Completed STOOL FOR OCCULT BLOOD Stat Lab 04/30/16 15:31 Uncollected TRANSFERRIN Routine Lab 05/01/16 05:20 Completed TRIGLYCERIDES Stat Lab 04/30/16 06:30 Completed URINALYSIS Stat Lab 04/30/16 18:07 Completed URINE CREATININE Stat Lab 04/30/16 18:07 Completed URINE MICROSCOPIC Stat Lab 04/30/16 18:07 Completed BRAIN MRI W/O CONTRAST [MRI] Routine MRI 04/30/16 11:45 Completed Acetaminophen [Tylenol -] Medication 05/01/16 00:28 Discontinued 500 mg PO ONCE ONE Acetaminophen [Tylenol -] Medication 05/01/16 23:42 Discontinued 500 mg PO ONCE ONE Acetaminophen [Tylenol -] Medication 05/02/16 17:14 Active 650 mg PO Q6H PRN Aspirin [ASA -] Medication 04/30/16 06:56 Discontinued 325 mg PO ONCE ONE Aspirin [ASA -] Medication 05/02/16 10:00 Active 81 mg PO DAILY Atorvastatin Ca [Lipitor -] Medication 04/30/16 22:00 Discontinued 20 mg PO HS Atorvastatin Ca [Lipitor -] Medication 05/01/16 22:00 Active 20 mg PO HS Atorvastatin Ca [Lipitor -] Medication 04/30/16 11:21 Discontinued 80 mg .ROUTE .STK-MED ONE Atorvastatin Ca [Lipitor -] Medication 04/30/16 06:55 Discontinued 80 mg PO ONCE ONE Bacitracin - Medication 04/30/16 13:45 Discontinued 1 applic TP BID Bacitracin - Medication 05/01/16 22:00 Active 1 applic TP BID Diphenhydramine HCl [Benadryl -] Medication 05/05/16 14:14 Discontinued 25 mg PO Q6H PRN Diphenhydramine [Benadryl Injection -] Medication 04/30/16 16:45 Discontinued 25 mg IVPB DAILY Diphenhydramine [Benadryl Injection -] Medication 05/02/16 10:00 Discontinued 25 mg IVPB DAILY Diphenhydramine [Benadryl Injection -] Medication 05/01/16 23:49 Discontinued 50 mg .ROUTE .STK-MED ONE Diphenhydramine [Benadryl Oral Solution -] Medication 05/01/16 00:45 Discontinued 25 mg PO ONCE ONE Docusate Sodium [Colace -] Medication 05/03/16 14:00 Active 100 mg PO TID Folic Acid - Medication 05/03/16 10:00 Active 1 mg PO DAILY Hemoque Test Medication 05/02/16 21:00 Discontinued 1 each .ROUTE .STK-MED ONE Heparin - Medication 05/01/16 14:00 Discontinued 5,000 unit SQ TID Heparin - Medication 05/01/16 22:00 Active 5,000 unit SQ TID Hydralazine HCl [Apresoline -] Medication 05/02/16 10:00 Active 25 mg PO BID Hydralazine Injection [Apresoline Injection -] Medication 05/01/16 14:45 Discontinued 10 mg IVPUSH Q6H PRN Hydralazine Injection [Apresoline Injection -] Medication 05/03/16 03:31 Discontinued 20 mg .ROUTE .STK-MED ONE Hydralazine Injection [Apresoline Injection -] Medication 05/03/16 03:20 Discontinued 20 mg IVPUSH ONCE ONE Hydralazine Injection [Apresoline Injection -] Medication 05/01/16 12:11 Discontinued 20 mg IVPUSH Q6H PRN Insulin Sliding Scale [Novolog Vial Sliding Scale -] Medication 05/07/16 07: 00 Active 1 vial SQ ACBK Insulin Sliding Scale [Novolog Vial Sliding Scale -] Medication 04/30/16 16: 30 Discontinued 1 vial SQ ACHS Insulin Sliding Scale [Novolog Vial Sliding Scale -] Medication 05/01/16 22: 00 Discontinued 1 vial SQ ACHS Metoprolol Tartrate [Lopressor -] Medication 04/30/16 18:16 Discontinued 25 mg .ROUTE .STK-MED ONE Metoprolol Tartrate [Lopressor -] Medication 04/30/16 22:00 Discontinued 25 mg PO BID Midazolam [Versed -] Medication 04/30/16 22:39 Discontinued 1 mg IVPUSH ONCE ONE Morphine Injection - Medication 05/03/16 09:39 Discontinued 2 mg IVPUSH Q6H PRN Multivitamins [Tab-A-Vit -] Medication 05/03/16 10:00 Active 1 tab PO DAILY Nicardipine [Cardene -] Medication 04/30/16 06:53 Discontinued 25 mg IVPB .STK-MED ONE Nicardipine [Cardene -] 25 mg Medication 04/30/16 07:00 Discontinued Dextrose 5%-Water - [D5w -] 240 ml IVPB TITR Nifedipine ER [Procardia Xl -] Medication 05/01/16 10:00 Discontinued 60 mg PO DAILY Nifedipine ER [Procardia Xl -] Medication 05/02/16 10:00 Discontinued 60 mg PO DAILY Nifedipine ER [Procardia Xl -] Medication 05/04/16 10:00 Active 90 mg PO DAILY Patient Specific Medications [Pt Own Med Drawer] Medication 05/02/16 09:15 Discontinued 1 ea .ROUTE .STK-MED ONE Permethrin 5% Topical Cream [Elimite -] Medication 05/02/16 13:44 Discontinued 1 applic TP ONCE ONE Piperacillin/Tazob 2.25 gm [Zosyn 2.25GM Ivpb (Pre- Medication 04/30/16 17:00 Discontinued Docked)] 50 ml IVPB Q8H Piperacillin/Tazob 2.25 gm [Zosyn 2.25GM Ivpb (Pre- Medication 05/01/16 10:00 Discontinued Docked)] 50 ml IVPB Q8H-IV Piperacillin/Tazob 2.25 gm [Zosyn 2.25GM Ivpb (Pre- Medication 05/01/16 13:45 Discontinued Docked)] 50 ml IVPB Q8H-IV Pneumococcal Vaccine [Pneumovax -] Medication 04/30/16 15:00 Discontinued 0.5 ml IM .ONCE ONE Polyethylene Glycol 3350 [Miralax (For Daily Use) -] Medication 05/03/16 10: 45 Active 17 gm PO DAILY Sodium Chloride [Normal Saline -] 1,000 ml Medication 04/30/16 06:30 Discontinued IV ASDIR Sodium Chloride [Normal Saline -] 1,000 ml Medication 05/02/16 16:15 Discontinued IV ASDIR Thiamine HCl [Vitamin B1 -] Medication 05/03/16 10:00 Active 100 mg PO DAILY Vancomycin 1 Gram (Pre-Docked) [Vancomycin (Pre-Docked) Medication 04/30/16 15 :25 Discontinued ] 250 ml IVPB ONCE Continuous Pulse Oximetry NOW Phy Order 04/30/16 06:28 Completed DVT [VTE Risk Level/Orders] Routine Phy Order 05/07/16 Ordered BARIUM SWALLOW-MOD [RAD] Routine Radiology 05/03/16 13:14 Completed CXRPORT [CHEST X-RAY PORTABLE*] [RAD] AM Radiology 05/01/16 06:00 Completed EVAL SWALLOW/LLISS [RAD] Routine Radiology 05/03/16 13:00 Completed FOOT-RIGHT [RAD] Urgent Radiology 04/30/16 16:08 Completed Obtain MRI Questionnaire See Order Reminders 04/30/16 11:45 Completed Reminder: new phy cons See Order Reminders 04/30/16 14:43 Completed Reminder: new phy cons See Order Reminders 04/30/16 14:44 Completed Reminder: new phy cons See Order Reminders 04/30/16 14:47 Completed Reminder: new phy cons See Order Reminders 04/30/16 15:26 Completed Reminder: new phy cons See Order Reminders 05/01/16 09:17 Completed Test Diet Needed Abd US, Please Enter See Order Reminders 05/01/16 12:17 Ordered Test Diet Needed Abd US, Please Enter See Order Reminders 05/05/16 16:46 Ordered Physical Therapy Request Routine Ther 04/30/16 15:45 Ordered Transfer Order Routine Transfer 05/01/16 Completed ABDOMEN US -LIMITED [US] Urgent Ultrasound 05/06/16 16:45 Completed CAROTID COLOR FLOW DOPP US [US] Routine Ultrasound 05/02/16 09:41 Completed DOPPL ABDOM ORGAN LIMIT US [US] Routine Ultrasound 05/01/16 12:13 Completed KIDNEY / RENAL US [US] Routine Ultrasound 04/30/16 14:47 Completed KIDNEY / RENAL US [US] Routine Ultrasound 05/01/16 Completed PELVIC / BLADDER US [US] Routine Ultrasound 04/30/16 17:55 Completed Medications Generic Name Dose Route Start Last Admin Trade Name Freq PRN Reason Stop Dose Admin Acetaminophen 650 mg 05/02/16 17:14 05/07/16 21:04 Tylenol - PO 650 mg Q6H PRN Administration FEVER OR PAIN Aspirin 81 mg 05/02/16 10:00 05/08/16 11:09 Asa - PO 81 mg DAILY JESSY Administration Atorvastatin Calcium 20 mg 05/01/16 22:00 05/07/16 21:04 Lipitor - PO 20 mg HS JESSY Administration Bacitracin 1 applic 05/01/16 22:00 05/08/16 11:09 Bacitracin - TP 1 applic BID JESSY Administration Docusate Sodium 100 mg 05/03/16 14:00 05/08/16 06:29 Colace - PO 100 mg TID JESSY Administration Folic Acid 1 mg 05/03/16 10:00 05/08/16 11:09 Folic Acid - PO 1 mg DAILY JESSY Administration Heparin Sodium (Porcine) 5,000 unit 05/01/16 22:00 05/08/16 06:29 Heparin - SQ 5,000 unit TID JESSY Administration Hydralazine HCl 25 mg 05/02/16 10:00 05/08/16 11:09 Apresoline - PO 25 mg BID JESSY Administration Insulin Aspart 1 vial 05/07/16 07:00 05/08/16 06:32 Novolog Vial Sliding Scale - SQ Not Given ACBK JESSY Protocol Multivitamins/Minerals/Vitamin C 1 tab 05/03/16 10:00 05/08/16 11:10 Tab-A-Vit - PO 1 tab DAILY JESSY Administration Nifedipine 90 mg 05/04/16 10:00 05/08/16 11:10 Procardia Xl - PO 90 mg DAILY JESSY Administration Polyethylene Glycol 17 gm 05/03/16 10:45 05/08/16 11:09 Miralax (For Daily Use) - PO 17 gm DAILY JESSY Administration Thiamine HCl 100 mg 05/03/16 10:00 05/08/16 11:10 Vitamin B1 - PO 100 mg DAILY JESSY Administration Discontinued Medications Generic Name Dose Route Start Last Admin Trade Name Markq PRN Reason Stop Dose Admin Acetaminophen 500 mg 05/01/16 00:28 05/01/16 00:48 Tylenol - PO 05/01/16 00:29 500 mg ONCE ONE Administration Acetaminophen 500 mg 05/01/16 23:42 05/01/16 23:52 Tylenol - PO 05/01/16 23:43 500 mg ONCE ONE Administration Aspirin 325 mg 04/30/16 06:56 04/30/16 07:12 Asa - PO 04/30/16 06:57 Not Given ONCE ONE Atorvastatin Calcium 80 mg 04/30/16 06:55 04/30/16 11:40 Lipitor - PO 04/30/16 06:56 80 mg ONCE ONE Administration Atorvastatin Calcium Confirm 04/30/16 11:21 Lipitor - Administered 04/30/16 11:22 Dose 80 mg .ROUTE .STK-MED ONE Atorvastatin Calcium 20 mg 04/30/16 22:00 04/30/16 21:40 Lipitor - PO 20 mg HS JESSY Administration Bacitracin 1 applic 04/30/16 13:45 05/01/16 11:02 Bacitracin - TP 1 applic BID JESSY Administration Diphenhydramine HCl 25 mg 04/30/16 16:45 05/01/16 09:55 Benadryl Injection - IVPB 25 mg DAILY JESSY Administration Diphenhydramine HCl 25 mg 05/01/16 00:45 05/01/16 00:48 Benadryl Oral Solution - PO 05/01/16 00:46 25 mg ONCE ONE Administration Diphenhydramine HCl 25 mg 05/02/16 10:00 05/05/16 09:51 Benadryl Injection - IVPB 25 mg DAILY JESSY Administration Diphenhydramine HCl Confirm 05/01/16 23:49 Benadryl Injection - Administered 05/01/16 23:50 Dose 50 mg .ROUTE .STK-MED ONE Diphenhydramine HCl 25 mg 05/05/16 14:14 05/06/16 21:46 Benadryl - PO 25 mg Q6H PRN Administration FOR ITCHING Heparin Sodium (Porcine) 5,000 unit 05/01/16 14:00 05/01/16 14:48 Heparin - SQ 5,000 unit TID JESSY Administration Hydralazine HCl 20 mg 05/01/16 12:11 05/01/16 13:30 Apresoline Injection - IVPUSH 20 mg Q6H PRN Administration HYPERTENSION Hydralazine HCl 10 mg 05/01/16 14:45 Apresoline Injection - IVPUSH Q6H PRN HYPERTENSION Hydralazine HCl Confirm 05/03/16 03:31 Apresoline Injection - Administered 05/03/16 03:32 Dose 20 mg .ROUTE .STK-MED ONE Hydralazine HCl 20 mg 05/03/16 03:20 05/03/16 03:20 Apresoline Injection - IVPUSH 05/03/16 03:21 20 mg ONCE ONE Administration Sodium Chloride 1,000 mls @ 42 mls/hr 04/30/16 06:30 04/30/16 11:06 Normal Saline - IV Not Given ASDIR JESSY Nicardipine HCl 25 mg/ 250 mls @ 25 mls/hr 04/30/16 07:00 05/01/16 12:27 Dextrose IVPB Not Given TITR [facility] Protocol 2.5 MG/HR Vancomycin HCl 250 mls @ 250 mls/hr 04/30/16 15:25 04/30/16 16:49 Vancomycin (Pre-Docked) IVPB 04/30/16 16:24 250 mls/hr ONCE ONE Administration Protocol Piperacillin Sod/Tazobactam Sod 50 mls @ 100 mls/hr 05/01/16 10:00 05/01/16 18: 32 Zosyn 2.25gm Ivpb (Pre-Docked) IVPB Not Given Q8H-IV [facility] Protocol Piperacillin Sod/Tazobactam Sod 50 mls @ 100 mls/hr 04/30/16 17:00 05/01/16 00: 49 Zosyn 2.25gm Ivpb (Pre-Docked) IVPB 05/01/16 01:29 100 mls/hr Q8H JESSY Administration Protocol Piperacillin Sod/Tazobactam Sod 50 mls @ 100 mls/hr 05/01/16 13:45 05/04/16 09: 22 Zosyn 2.25gm Ivpb (Pre-Docked) IVPB 100 mls/hr Q8H-IV JESSY Administration Protocol Sodium Chloride 1,000 mls @ 42 mls/hr 05/02/16 16:15 05/02/16 16:38 Normal Saline - IV 05/03/16 16:04 42 mls/hr ASDIR JESSY Administration Insulin Aspart 1 vial 04/30/16 16:30 05/01/16 17:31 Novolog Vial Sliding Scale - SQ 2 units ACHS JESSY Administration Protocol Insulin Aspart 1 vial 05/01/16 22:00 05/06/16 21:38 Novolog Vial Sliding Scale - SQ Not Given ACHS JESSY Protocol Metoprolol Tartrate 25 mg 04/30/16 22:00 04/30/16 21:40 Lopressor - PO 25 mg BID JESSY Administration Metoprolol Tartrate Confirm 04/30/16 18:16 Lopressor - Administered 04/30/16 18:17 Dose 25 mg .ROUTE .STK-MED ONE Midazolam HCl 1 mg 04/30/16 22:39 04/30/16 22:44 Versed - IVPUSH 04/30/16 22:40 1 mg ONCE ONE Administration Miscellaneous Confirm 05/02/16 21:00 Hemoque Test Administered 05/02/16 21:01 Dose 1 each .ROUTE .STK-MED ONE Morphine Sulfate 2 mg 05/03/16 09:39 05/05/16 20:02 Morphine Injection - IVPUSH 2 mg Q6H PRN Administration PAIN Nicardipine HCl Confirm 04/30/16 06:53 Cardene - Administered 04/30/16 06:54 Dose 25 mg IVPB .STK-MED ONE Nifedipine 60 mg 05/01/16 10:00 05/01/16 09:55 Procardia Xl - PO 60 mg DAILY JESSY Administration Nifedipine 60 mg 05/02/16 10:00 05/03/16 09:09 Procardia Xl - PO 60 mg DAILY JESSY Administration Patient Own Medication Confirm 05/02/16 09:15 Pt Own Med Drawer Administered 05/02/16 09:16 Dose 1 ea .ROUTE .STK-MED ONE Permethrin 1 applic 05/02/16 13:44 05/02/16 16:39 Elimite - TP 05/02/16 13:45 1 applic ONCE ONE Administration Pneumococcal Polyvalent Vaccine 0.5 ml 04/30/16 15:00 04/30/16 17:18 Pneumovax - IM 04/30/16 15:01 0.5 ml .ONCE ONE Administration Lab Results WBC 5.0 K/mm3 (4.0-10.0) 05/06/16 05:55 RBC 2.98 M/mm3 (3.60-5.2) L 05/06/16 05:55 Hgb 8.5 GM/dL (10.7-15.3) L 05/06/16 05:55 Hct 26.2 % (32.4-45.2) L 05/06/16 05:55 MCV 88.1 fl (80-96) 05/06/16 05:55 MCHC 32.3 g/dl (32.0-36.0) 05/06/16 05:55 RDW 15.5 % (11.6-15.6) 05/06/16 05:55 Plt Count 130 K/MM3 (134-434) L 05/06/16 05:55 MPV 8.2 fl (7.5-11.1) 05/06/16 05:55 Neutrophils % 59.3 % (42.8-82.8) 05/02/16 05:10 Lymphocytes % 26.1 % (8-40) 05/02/16 05:10 Monocytes % 8.7 % (3.8-10.2) 05/02/16 05:10 Eosinophils % 5.4 % (0-4.5) H 05/02/16 05:10 Basophils % 0.5 % (0-2.0) 05/02/16 05:10 INR 0.97 (0.82-1.09) 04/30/16 06:30 Sodium 143 mmol/L (136-145) 05/06/16 05:55 Potassium 5.1 mmol/L (3.5-5.1) 05/06/16 05:55 Chloride 115 mmol/L (98-107) H 05/06/16 05:55 Carbon Dioxide 20 mmol/L (21-32) L 05/06/16 05:55 Anion Gap 8 (8-16) 05/06/16 05:55 BUN 40 mg/dL (7-18) H 05/06/16 05:55 Creatinine 3.2 mg/dL (0.55-1.02) H 05/06/16 05:55 Creat Clearance w eGFR 13.82 (>60) 05/02/16 05:10 POC Glucometer 95 UNITS (()) 05/08/16 06:22 Random Glucose 80 mg/dL (74-106) 05/06/16 05:55 Hemoglobin A1c % 5.0 % (4.8-6.0) D 05/03/16 05:10 Calcium 7.8 mg/dL (8.5-10.1) L 05/06/16 05:55 Phosphorus 5.3 mg/dL (2.5-4.9) H 05/02/16 05:10 Magnesium 1.9 mg/dL (1.8-2.4) 05/02/16 05:10 Iron 28 ug/dL (27-159) 05/01/16 05:20 TIBC 237 ug/dL (250-450) L 05/01/16 05:20 Iron Saturation 12 % (15-55) L 05/01/16 05:20 Transferrin 224 mg/dL (200-370) 05/01/16 05:20 Ferritin 24.276 ng/ml (6.9-282.5) 05/01/16 05:20 Total Bilirubin 0.5 mg/dL (0.2-1.0) D 05/02/16 05:10 AST 21 U/L (15-37) D 05/02/16 05:10 ALT 13 U/L (12-78) 05/02/16 05:10 Alkaline Phosphatase 148 U/L (45-117) H 05/02/16 05:10 Creatine Kinase 44 IU/L (26-192) 05/01/16 05:20 Troponin I 0.05 ng/ml (0.00-0.05) 05/01/16 05:20 Total Protein 6.0 g/dl (6.4-8.2) L 05/02/16 05:10 Albumin 2.1 g/dl (3.4-5.0) L 05/02/16 05:10 Triglycerides 151 mg/dL (35-160) 05/03/16 05:10 Cholesterol 154 mg/dL (50-200) D 05/03/16 05:10 Total LDL Cholesterol 102 mg/dL (5-100) H 05/03/16 05:10 HDL Cholesterol 45 mg/dL (40-60) 05/03/16 05:10 TSH 3.44 uIU/ml (0.358-3.74) 04/30/16 06:30 Urine Color Straw 04/30/16 18:07 Urine Appearance Clear 04/30/16 18:07 Urine pH 6.0 (5.0-8.0) 04/30/16 18:07 Ur Specific [place] 1.011 (1.001-1.035) 04/30/16 18:07 Urine Protein 3+ (NEGATIVE) H D 04/30/16 18:07 Urine Glucose (UA) 2+ (NEGATIVE) H 04/30/16 18:07 Urine Ketones Negative (NEGATIVE) 04/30/16 18:07 Urine Blood 1+ (NEGATIVE) H 04/30/16 18:07 Urine Nitrite Negative (NEGATIVE) 04/30/16 18:07 Urine Bilirubin Negative (NEGATIVE) 04/30/16 18:07 Urine Urobilinogen Negative E.U./dl (0.2-1.0) 04/30/16 18:07 Ur Leukocyte Esterase Negative (NEGATIVE) 04/30/16 18:07 Urine RBC 19 /hpf (0-3) 04/30/16 18:07 Urine WBC 5 /hpf (3-5) 04/30/16 18:07 Ur Epithelial Cells Moderate /hpf (FEW) 04/30/16 18:07 Ur Random Sodium 72 MMOL/L 04/30/16 18:07 Ur Random Potassium 23.6 MMOL/L 04/30/16 18:07 Ur Random Chloride 78 MMOL/L 04/30/16 18:07 Urine Creatinine 44.0 mg/dL 04/30/16 18:07 Opiates Screen Negative ng/ml (OJEZQJ=453) 04/30/16 18:07 Methadone Screen Negative ng/ml (KQHSTP=464) 04/30/16 18:07 Barbiturate Screen Negative ng/ml (KBNICX=217) 04/30/16 18:07 Phencyclidine Screen Negative ng/ml (CUTOFF=25) 04/30/16 18:07 Ur Amphetamines Screen Negative ng/ml (IHKEAW=906) 04/30/16 18:07 MDMA (Ecstasy) Screen Negative ng/ml (TAGXXS=383) 04/30/16 18:07 Benzodiazepines Screen Negative ng/ml (CXAIAM=827) 04/30/16 18:07 Cocaine Screen Positive ng/ml (OOHGFO=508) 04/30/16 18:07 U Marijuana (THC) Screen Negative ng/ml (CUTOFF=50) 04/30/16 18:07 AVIS Screen Positive (.) H 05/01/16 05:20 AVIS Homogeneous Pattern TNP 05/01/16 05:20 AVIS Nucleolar Pattern TNP 05/01/16 05:20 AVIS Speckled Pattern 1:320 (.) H 05/01/16 05:20 AVIS Centromere Pattern TNP 05/01/16 05:20 c-ANCA <1:20 titer (Neg:<1:20) 05/04/16 15:10 Proteinase 3 (PR3) <3.5 U/mL (0.0-3.5) 05/04/16 15:10 p-ANCA <1:20 titer (Neg:<1:20) 05/04/16 15:10 Atypical p-ANCA <1:20 titer (Neg:<1:20) 05/04/16 15:10 Myeloperoxidase Ab <9.0 U/mL (0.0-9.0) 05/04/16 15:10 Double Strand DNA Ab <1 IU/mL (0-9) 05/04/16 15:10 Hep A IgM Ab Confirm Negative (Negative) 05/01/16 05:20 Hepatitis A Ab Total Positive (Negative) H 05/01/16 05:20 Hep Bs Antigen Negative (Negative) 05/01/16 05:20 Hep Bs Antibody Reactive (.) 05/01/16 05:20 Hep B Core Total Ab Negative (Negative) 05/01/16 05:20 Blood Type O POSITIVE 04/30/16 08:10 Antibody Screen Negative 04/30/16 06:30 Crossmatch See Detail 04/30/16 08:10 ASSESSMENT AND PLAN: This is a 61-year-old woman with a history of type 2 DM, HTN, hyperlipidemia, alcohol abuse who presented with right hand and leg weakness. She was admitted for hypertensive emergency. # Possible left cerebral peduncle infarct with right-sided weakness on aspirin, Lipitor, continue PT; Repeat MRI of brain in 1-2 months Increased PT 2x per day. Gait is ataxic # s/p Hypertensive emergency presented with SBP of 230; resolved on Procardia and hydralazine continue # Hypertension on Procardia, Hydralazine # Acute kidney injury on CKD, stage 3 vs stage 4 ; Creatinine stable 3.2 baseline Cr.2.6, will check with Nephrology regarding Iron supplements. since having Legs cramps at times. # Abrasion and cellulitis of right 1st toe Completed antibiotics; on Bacitracin continue # Anemia, due to CKD s/p 1 unit PRBCs on this admission; Hemoglobin 8.5 # Generalized pruritus ,will dc benadryl for now since she is lethargic; Outpatient dermatology evaluation if needed, will get Ammonia level. Also Hydralazine can increase pruritis but for now will continue since her pruritus was prior to starting Hydralazine. # Hyperlipidemia on Lipitor # Type 2 diabetes mellitus on Novolog sliding scale. Metformin on hold due to her kidney function # Positive AVIS outpatient rheumatology evaluation # History of alcohol abuse Continue multivitamin, thiamine, folic acid # Right-sided abdominal pain resolved; RUQ US negative Dvt Px: SCds Diet: Dysphagia chopped diet Waiting for placement.
--- NOTE | 2016-05-08 10:43 | PN ---
Progress Note, Physician History of Present Illness: The patient is a 61 year old female with significant past medical history of hypertension, hyperlipidemia, and diabetes, who presents to the ED with 1 day of worsening right-sided weakness and left facial weakness. Patient reports she developed a headache yesterday and subsequently became dizzy with right-sided weakness and left facial weakness. She also reports slurred speech. She denies blurry vision, syncope, or numbness/tingling. - Current Medication List Current Medications: Active Medications Acetaminophen (Tylenol -) 650 mg PO Q6H PRN PRN Reason: FEVER OR PAIN Last Admin: 05/07/16 21:04 Dose: 650 mg Aspirin (Asa -) 81 mg PO DAILY [facility] Last Admin: 05/07/16 10:37 Dose: 81 mg Atorvastatin Calcium (Lipitor -) 20 mg PO HS [facility] Last Admin: 05/07/16 21:04 Dose: 20 mg Bacitracin (Bacitracin -) 1 applic TP BID [facility] Last Admin: 05/07/16 21:05 Dose: 1 applic Docusate Sodium (Colace -) 100 mg PO TID [facility] Last Admin: 05/08/16 06:29 Dose: 100 mg Folic Acid (Folic Acid -) 1 mg PO DAILY [facility] Last Admin: 05/07/16 10:37 Dose: 1 mg Heparin Sodium (Porcine) (Heparin -) 5,000 unit SQ TID [facility] Last Admin: 05/08/16 06:29 Dose: 5,000 unit Hydralazine HCl (Apresoline -) 25 mg PO BID [facility] Last Admin: 05/07/16 21:04 Dose: 25 mg Insulin Aspart (Novolog Vial Sliding Scale -) 1 vial SQ ACBK [facility] PRN Reason: Protocol Last Admin: 05/08/16 06:32 Dose: Not Given Multivitamins/Minerals/Vitamin C (Tab-A-Vit -) 1 tab PO DAILY [facility] Last Admin: 05/07/16 10:37 Dose: 1 tab Nifedipine (Procardia Xl -) 90 mg PO DAILY [facility] Last Admin: 05/07/16 10:37 Dose: 90 mg Polyethylene Glycol (Miralax (For Daily Use) -) 17 gm PO DAILY [facility] Last Admin: 05/07/16 10:38 Dose: 17 gm Thiamine HCl (Vitamin B1 -) 100 mg PO DAILY [facility] Last Admin: 05/07/16 10:37 Dose: 100 mg - Objective Vital Signs: Vital Signs Temperature 98.2 F 05/08/16 06:00 Pulse Rate 92 H 05/08/16 06:00 Respiratory Rate 18 05/08/16 06:00 Blood Pressure 144/61 05/08/16 06:00 O2 Sat by Pulse Oximetry (%) 96 05/07/16 21:00 Eyes: Yes: WNL, Conjunctiva Clear, EOM Intact HENT: Yes: WNL, Atraumatic, Normocephalic Neck: Yes: WNL, Supple, Trachea Midline Cardiovascular: Yes: WNL, Regular Rate and Rhythm Respiratory: Yes: WNL, Regular, CTA Bilaterally Gastrointestinal: Yes: WNL, Normal Bowel Sounds Genitourinary: Yes: WNL Musculoskeletal: Yes: WNL Extremities: Yes: WNL Edema: No Integumentary: Yes: WNL Neurological: Yes: WNL, Alert, Oriented ...Motor Strength: WNL Psychiatric: Yes: WNL Labs: CBC, BMP 05/06/16 05:55 05/06/16 05:55 INR, PTT INR 0.97 (0.82-1.09) 04/30/16 06:30 Assessment/Plan - Problems (1) Alcohol abuse Assessment/Plan: pt says she stopped 3 months ago; Tox screen + for cocaine. (2) Cerebrovascular accident (CVA) Assessment/Plan: CT head: no acute or chronic pathology; however, has garbled speech, mild decreased right hand strength. MRI: subacute infarct vs lesion; contrast MRI suggested. Increase daily physical therapy (5) Hypercholesteremia Assessment/Plan: started atorvastatin (6) Hypertensive emergency Assessment/Plan: Off beta blockers due to cocaine in urine tox screen. On nifedipine ER. Started PO hydralazine; may increase to 200 mg total daily (in divided doses). ECHO: normal LVEF; mild LVH; mild TR and MR. (7) Substance abuse Assessment/Plan: Urine tox screen : + for cocaine (pt denies using cocaine; was on Zoszyn). Admits now to >1 ppd cigarettes since age 20; quit several months ago. Agree with stopping metoprolol and starting nifedipine; PO hydralazine started. hx ETOH abuse (according to pt, quit several months ago). (8) Anemia Assessment/Plan: no overt source; f/u workup. Code(s): D64.9 - ANEMIA, UNSPECIFIED Qualifiers: Anemia type: unspecified type Qualified Code(s): D64.9 - Anemia, unspecified (9) Renal dysfunction Assessment/Plan: Abd US: morphologically normal kidneys. F/u BUN/Cr; avoid excessive dehydration. (10) Right-sided chest pain Assessment/Plan: right sided chest and abdominal pain. CT abdomen 04/30/16: no acute pathology; right pleural effusion. f/u clinically.
[2016-05-08] MEDS: FOLIC ACID 1 MG TABLET (FP) PO SCH (11:09)
[2016-05-08] MEDS: BACITRACIN 30 GM TUBE TOPICAL OINTMENT TP SCH ×2 (11:09→21:14)
[2016-05-08] MEDS: POLYETHYLENE GLYCOL 3350 119 GM BTL PO SCH (11:09)
[2016-05-08] MEDS: ASPIRIN 81 MG CHEWABLE TABLETS PO SCH (11:09)
[2016-05-08] MEDS: hydrALAZINE HCL 25 MG TABLET (FP) PO SCH ×2 (11:09→21:08)
[2016-05-08] MEDS: THIAMINE HCL 100 MG TABLET (FP) PO SCH (11:10)
[2016-05-08] MEDS: NIFEdipine E.R. 90 MG TABLET (FP) PO SCH (11:10)
[2016-05-08] MEDS: MULTIVITAMINS (DAILY MVI) TABLET (FP) PO SCH (11:10)
--- NOTE | 2016-05-08 13:37 | PN ---
Progress Note, Physician History of Present Illness: Pt seen and examined at bedside. She is awake and appears comfortable. She denies chest pain. - Current Medication List Current Medications: Active Medications Acetaminophen (Tylenol -) 650 mg PO Q6H PRN PRN Reason: FEVER OR PAIN Last Admin: 05/07/16 21:04 Dose: 650 mg Aspirin (Asa -) 81 mg PO DAILY [facility] Last Admin: 05/08/16 11:09 Dose: 81 mg Atorvastatin Calcium (Lipitor -) 20 mg PO HS [facility] Last Admin: 05/07/16 21:04 Dose: 20 mg Bacitracin (Bacitracin -) 1 applic TP BID [facility] Last Admin: 05/08/16 11:09 Dose: 1 applic Docusate Sodium (Colace -) 100 mg PO TID [facility] Last Admin: 05/08/16 06:29 Dose: 100 mg Folic Acid (Folic Acid -) 1 mg PO DAILY [facility] Last Admin: 05/08/16 11:09 Dose: 1 mg Heparin Sodium (Porcine) (Heparin -) 5,000 unit SQ TID [facility] Last Admin: 05/08/16 06:29 Dose: 5,000 unit Hydralazine HCl (Apresoline -) 25 mg PO BID [facility] Last Admin: 05/08/16 11:09 Dose: 25 mg Insulin Aspart (Novolog Vial Sliding Scale -) 1 vial SQ ACBK [facility] PRN Reason: Protocol Last Admin: 05/08/16 06:32 Dose: Not Given Multivitamins/Minerals/Vitamin C (Tab-A-Vit -) 1 tab PO DAILY [facility] Last Admin: 05/08/16 11:10 Dose: 1 tab Nifedipine (Procardia Xl -) 90 mg PO DAILY [facility] Last Admin: 05/08/16 11:10 Dose: 90 mg Polyethylene Glycol (Miralax (For Daily Use) -) 17 gm PO DAILY [facility] Last Admin: 05/08/16 11:09 Dose: 17 gm Thiamine HCl (Vitamin B1 -) 100 mg PO DAILY [facility] Last Admin: 05/08/16 11:10 Dose: 100 mg - Objective Vital Signs: Vital Signs Temperature 98.2 F 05/08/16 06:00 Pulse Rate 92 H 05/08/16 06:00 Respiratory Rate 18 05/08/16 06:00 Blood Pressure 144/61 05/08/16 06:00 O2 Sat by Pulse Oximetry (%) 96 05/07/16 21:00 Constitutional: Yes: Calm Eyes: Yes: Conjunctiva Clear HENT: Yes: Atraumatic Cardiovascular: Yes: S1, S2 Respiratory: Yes: CTA Bilaterally Gastrointestinal: Yes: Soft Musculoskeletal: Yes: WNL Edema: No Neurological: Yes: Oriented Labs: CBC, BMP 05/06/16 05:55 05/06/16 05:55 INR, PTT INR 0.97 (0.82-1.09) 04/30/16 06:30 Assessment/Plan Current Medications Generic Name Dose Route Start Last Admin Trade Name Freq PRN Reason Stop Dose Admin Acetaminophen 650 mg 05/02/16 17:14 05/07/16 21:04 Tylenol - PO 650 mg Q6H PRN Administration FEVER OR PAIN Aspirin 81 mg 05/02/16 10:00 05/08/16 11:09 Asa - PO 81 mg DAILY JESSY Administration Atorvastatin Calcium 20 mg 05/01/16 22:00 05/07/16 21:04 Lipitor - PO 20 mg HS JESSY Administration Bacitracin 1 applic 05/01/16 22:00 05/08/16 11:09 Bacitracin - TP 1 applic BID JESSY Administration Docusate Sodium 100 mg 05/03/16 14:00 05/08/16 06:29 Colace - PO 100 mg TID JESSY Administration Folic Acid 1 mg 05/03/16 10:00 05/08/16 11:09 Folic Acid - PO 1 mg DAILY JESSY Administration Heparin Sodium (Porcine) 5,000 unit 05/01/16 22:00 05/08/16 06:29 Heparin - SQ 5,000 unit TID JESSY Administration Hydralazine HCl 25 mg 05/02/16 10:00 05/08/16 11:09 Apresoline - PO 25 mg BID JESSY Administration Insulin Aspart 1 vial 05/07/16 07:00 05/08/16 06:32 Novolog Vial Sliding Scale - SQ Not Given ACBK [facility] Protocol Multivitamins/Minerals/Vitamin C 1 tab 05/03/16 10:00 05/08/16 11:10 Tab-A-Vit - PO 1 tab DAILY [facility] Administration Nifedipine 90 mg 05/04/16 10:00 05/08/16 11:10 Procardia Xl - PO 90 mg DAILY [facility] Administration Polyethylene Glycol 17 gm 05/03/16 10:45 05/08/16 11:09 Miralax (For Daily Use) - PO 17 gm DAILY [facility] Administration Thiamine HCl 100 mg 05/03/16 10:00 05/08/16 11:10 Vitamin B1 - PO 100 mg DAILY [facility] Administration Laboratory Tests 05/01/16 05/01/16 05/04/16 05:20 05:20 15:10 Iron 28 Ferritin 24.276 c-ANCA <1:20 Proteinase 3 (PR3) <3.5 p-ANCA <1:20 Atypical p-ANCA <1:20 Myeloperoxidase Ab <9.0 Double Strand DNA Ab <1 Glomerular Base Memb Ab Pending Impression 1. GABY 2. likely CKD 3. hypertensive emergency 4. DM 5. hyperlipidemia 6. hx migraine 7. pleural effusion 8. CVA 9. positive cocaine in urine 10. positive milady 11. anemia Plan - will monitor renal function, likely progression of disease - cont current meds - will add iron - start colace if she developed constipation - will see pt in office - may need kidney biopsy however will need to be off of asa for a week prior, will set up as outpt - will need eval with rheum as well - cont PT/rehab Dr David
[2016-05-08] MEDS: FERROUS SO4 325 MG TABLET (FP) PO SCH ×2 (14:36→21:08)
--- NOTE | 2016-05-08 15:31 | PN ---
Physical Exam: SUBJECTIVE: Patient seen and examined. She still has some mild abdominal tenderness on right side. She denies headache, chest pain, SOB. OBJECTIVE: Vital Signs Period Temp Pulse Resp BP Sys/Mancini Pulse Ox Last 24 Hr 97.9 F-99.0 F 81-99 18-18 135-156/55-74 96 GENERAL: Awake, alert, and fully oriented, in no acute distress, dishelved. HEAD: Normal with no signs of trauma. EYES: extraocular movements intact, sclera anicteric, conjunctiva clear. EARS, NOSE, THROAT: Moist mucous membranes. NECK: supple without lymphadenopathy, JVD. LUNGS: Breath sounds equal, clear to auscultation bilaterally. No wheezes, and no crackles. No accessory muscle use. HEART: Regular rate and rhythm, normal S1 and S2 without murmur, rub or gallop. ABDOMEN: Soft, tender in RLQ, not distended, normoactive bowel sounds, no guarding, no rebound, no masses. MUSCULOSKELETAL: Limited ROM in right toe. No bony deformities, no swelling. UPPER EXTREMITIES:warm, no cyanosis. No clubbing. No peripheral edema. LOWER EXTREMITIES: warm, no calf tenderness. No peripheral edema. Right toe: no nail, clotted blood. NEUROLOGICAL: Slurred speech. No facial asymmetry, motor: 5/5 RUE, 5/5 LUE, 5/ 5 LEs. Sensation; no changes. Gait not observed.. PSYCHIATRIC: Cooperative. Good eye contact. Appropriate mood and affect. SKIN: Warm, dry, normal turgor, discoloration and excoriations on the back and LE B/L, horizontal scar in mid abdomen-burn, scar on right ankle. Laboratory Results - last 24 hr 05/04/16 05/08/16 15:10 06:22 POC Glucometer 95 c-ANCA <1:20 Proteinase 3 (PR3) <3.5 p-ANCA <1:20 Atypical p-ANCA <1:20 Myeloperoxidase Ab <9.0 Glomerular Base Memb Ab 3 Active Medications Generic Name Dose Route Start Last Admin Trade Name Freq PRN Reason Stop Dose Admin Acetaminophen 650 mg 05/02/16 17:14 05/07/16 21:04 Tylenol - PO 650 mg Q6H PRN Administration FEVER OR PAIN Aspirin 81 mg 05/02/16 10:00 05/08/16 11:09 Asa - PO 81 mg DAILY JESSY Administration Atorvastatin Calcium 20 mg 05/01/16 22:00 05/07/16 21:04 Lipitor - PO 20 mg HS JESSY Administration Bacitracin 1 applic 05/01/16 22:00 05/08/16 11:09 Bacitracin - TP 1 applic BID JESSY Administration Docusate Sodium 100 mg 05/03/16 14:00 05/08/16 14:36 Colace - PO 100 mg TID JESSY Administration Ferrous Sulfate 325 mg 05/08/16 13:45 05/08/16 14:36 Feosol - PO 325 mg BID JESS[facility] Administration Folic Acid 1 mg 05/03/16 10:00 05/08/16 11:09 Folic Acid - PO 1 mg DAILY [facility] Administration Heparin Sodium (Porcine) 5,000 unit 05/01/16 22:00 05/08/16 14:36 Heparin - SQ 5,000 unit TID JESSY Administration Hydralazine HCl 25 mg 05/02/16 10:00 05/08/16 11:09 Apresoline - PO 25 mg BID [facility] Administration Insulin Aspart 1 vial 05/07/16 07:00 05/08/16 06:32 Novolog Vial Sliding Scale - SQ Not Given [facility] Protocol Multivitamins/Minerals/Vitamin C 1 tab 05/03/16 10:00 05/08/16 11:10 Tab-A-Vit - PO 1 tab DAILY [facility] Administration Nifedipine 90 mg 05/04/16 10:00 05/08/16 11:10 Procardia Xl - PO 90 mg DAILY [facility] Administration Polyethylene Glycol 17 gm 05/03/16 10:45 05/08/16 11:09 Miralax (For Daily Use) - PO 17 gm DAILY [facility] Administration Thiamine HCl 100 mg 05/03/16 10:00 05/08/16 11:10 Vitamin B1 - PO 100 mg DAILY [facility] Administration ASSESSMENT/PLAN: CT head: No evidence of acute intracranial hemorrhage, edema, midline shift, mass effect, or skull fracture. No CT evidence of acute territorial infarction. MRI brain-late changes, atrophy, no avute pathology CT abdomen/pelvis: 1. Right pleural effusion and lower lobe atelectasis. 2. Limited study with no evidence of acute pathology within the abdomen or pelvis. Please see above discussion. ASSESSMENT/PLAN: This is a 61 year old female with a significant PMH of DM, HTN, HDL, alcohol abuse who presents to the hospital complaining of weakness in right hand and leg and a headache. She was found to be hypertensive. She is admitted to ICU for hypertensive emergency and R/O CVA. Possible CVA/TIA: -r/o new stroke, no acute pathology on CT, MRI -f/u Neurology consultation, possible MRI in 1-2 months -Aspirin and statins in ED, too late for TPA -speech and swallow evaluation done, chopped diet -PT changed to BID Hypertensive emergency: -she was positive for cocaine, bblockers contraindicated -Procardia 60 mg PO qd changed to 90mg -Hydralazine 25 mg BID -monitor VS -f/u cardiology RLQ and RUQ abdominal pain: -CT abdomen and pelvis-no acute pathology -US neg for acute pathology, right pleural effusion Atypical chest pain; -HEART score:4 -ECHO done: no regional WMA but RV Systolic pressure elevated 30-40 -f/u Cardiology consultation GABY possible CKD: -BUN and Cr. elevated, baseline 2.6 -avoid nephrotoxic substances -f/u Nephrology consultation -Kidney US done, consider biopsy and f/u with nephro as outpatient Right toe infection: -no more abx, improved -f/u ID consultation -right toe x ray, no fracture -wound care Microcytic anemia: -1 unit of PRBC done, Hgb improved to 8.9 -Iron done -FOBT ordered Rash and generalized itching: -Benadryl IV 25 D stopped -contact isolation DC -called Dermatology consultation HDL: -cont. Atorvastatin DM type 2: -ISS ACHS -BGM ACHS -hold Metformin Positive AVIS: -consider Rheum as outpatient Alsohol abuse: -stopped 3 mo ago, cont. Supplements DVT PPX: -SCDs -Heparin 5000 u SQ GI PPX; -not indicated F/E/N: No/No/chopped dysphagia diet Disposition: medicine, waiting for rehab placement, will have more PT Visit type - Emergency Visit Emergency Visit: Yes ED Registration Date: 04/30/16 Care time: The patient presented to the Emergency Department on the above date and was hospitalized for further evaluation of their emergent condition. - New Patient This patient is new to me today: No - Critical Care Critical Care patient: No - Discharge Referral Referred to [facility] Med P.C.: No
--- NOTE | 2016-05-08 16:33 | PN ---
Progress Note, Physician History of Present Illness: no new events stable - Current Medication List Current Medications: Active Medications Acetaminophen (Tylenol -) 650 mg PO Q6H PRN PRN Reason: FEVER OR PAIN Last Admin: 05/07/16 21:04 Dose: 650 mg Aspirin (Asa -) 81 mg PO DAILY [facility] Last Admin: 05/08/16 11:09 Dose: 81 mg Atorvastatin Calcium (Lipitor -) 20 mg PO HS [facility] Last Admin: 05/07/16 21:04 Dose: 20 mg Bacitracin (Bacitracin -) 1 applic TP BID [facility] Last Admin: 05/08/16 11:09 Dose: 1 applic Docusate Sodium (Colace -) 100 mg PO TID [facility] Last Admin: 05/08/16 14:36 Dose: 100 mg Ferrous Sulfate (Feosol -) 325 mg PO BID [facility] Last Admin: 05/08/16 14:36 Dose: 325 mg Folic Acid (Folic Acid -) 1 mg PO DAILY [facility] Last Admin: 05/08/16 11:09 Dose: 1 mg Heparin Sodium (Porcine) (Heparin -) 5,000 unit SQ TID [facility] Last Admin: 05/08/16 14:36 Dose: 5,000 unit Hydralazine HCl (Apresoline -) 25 mg PO BID [facility] Last Admin: 05/08/16 11:09 Dose: 25 mg Insulin Aspart (Novolog Vial Sliding Scale -) 1 vial SQ ACBK [facility] PRN Reason: Protocol Last Admin: 05/08/16 06:32 Dose: Not Given Multivitamins/Minerals/Vitamin C (Tab-A-Vit -) 1 tab PO DAILY [facility] Last Admin: 05/08/16 11:10 Dose: 1 tab Nifedipine (Procardia Xl -) 90 mg PO DAILY [facility] Last Admin: 05/08/16 11:10 Dose: 90 mg Polyethylene Glycol (Miralax (For Daily Use) -) 17 gm PO DAILY [facility] Last Admin: 05/08/16 11:09 Dose: 17 gm Thiamine HCl (Vitamin B1 -) 100 mg PO DAILY [facility] Last Admin: 05/08/16 11:10 Dose: 100 mg - Objective Vital Signs: Vital Signs Temperature 97.9 F 05/08/16 13:52 Pulse Rate 88 05/08/16 13:52 Respiratory Rate 18 05/08/16 13:52 Blood Pressure 156/64 05/08/16 13:52 O2 Sat by Pulse Oximetry (%) 96 05/07/16 21:00 Constitutional: Yes: No Distress, Calm Cardiovascular: Yes: Regular Rate and Rhythm Respiratory: Yes: Regular, CTA Bilaterally Gastrointestinal: Yes: Normal Bowel Sounds, Soft Musculoskeletal: Yes: WNL Extremities: Yes: WNL Neurological: Yes: Alert, Oriented Psychiatric: Yes: Alert Labs: CBC, BMP 05/06/16 05:55 05/06/16 05:55 INR, PTT INR 0.97 (0.82-1.09) 04/30/16 06:30 Assessment/Plan toe improving 1. GABY 2. likely CKD 3. hypertensive emergency 4. DM 5. hyperlipidemia 6. hx migraine 7. pleural effusion 8. r/o CVA 9. positive cocaine in urine lymphangitis cellulitis of the toe plan continue current mgmt off of abx patient doing well
--- NOTE | 2016-05-08 17:26 | CONSULT ---
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 Cardio/Vascular: Yes: HTN, Hyperlipdemia Renal/: Yes: Renal Inusuff ...: No Psych: Yes: Addictions Endocrine: Yes: Diabetes Insipidus - Alcohol/Substance Use Hx Alcohol Use: Yes History of Substance Use: denies: Cocaine, Heroin, Marijuana - Smoking History Smoking history: Never smoked Have you smoked in the past 12 months: Yes Aproximately how many cigarettes per day: 1 - Social History Usual Living Arrangement: With Significant Other Home Medications - Allergies Allergies/Adverse Reactions: Allergies Allergy/AdvReac Type Severity Reaction Status Date / Time No Known Drug Allergies Allergy Verified 04/30/16 06:29 - Home Medications Home Medications: Ambulatory Orders Meclizine HCl [Antivert -] 25 mg PO TID #21 tablet 08/17/13 Unobtainable Home Med List 0 dose .ROUTE UTDICT 08/17/13 Amlodipine Besylate [Norvasc -] 5 mg PO DAILY #30 tablet 08/20/13 Folic Acid - 1 mg PO DAILY #30 tablet 08/20/13 Metformin HCl [Glucophage -] 500 mg PO BID #60 tablet 08/20/13 Multivitamins [Multivit ([facility] Formulary)] 1 tab PO DAILY #30 tab 08/20/13 Pantoprazole Sodium [Protonix -] 40 mg PO DAILY #30 tablet.ec 08/20/13 Thiamine HCl [Vitamin B1 -] 100 mg PO DAILY #30 tablet 08/20/13 Calamine/Zinc Oxide [Qc Calamine Lotion] 5 ml TP BID #177 ml 08/05/15 Hydroxyzine HCl [Atarax -] 25 mg PO TID #21 tablet 08/05/15 Amox-Tr/K Cl [Augmentin 500-125mg Tablet -] 1 tab PO BID@0800,1730 #10 tablet Clindamycin [Cleocin -] 300 mg PO Q6HPO #16 capsule 01/05/16 Docusate Sodium [Colace -] 100 mg PO BID #14 capsule 01/05/16 Ferrous Sulfate [Feosol] 325 mg PO TIDCM #90 ud 01/05/16 Hydroxyzine HCl [Atarax -] 25 mg PO Q6H PRN #20 tablet 01/05/16 Labetalol HCl [Normodyne -] 400 mg PO BID #120 tablet 01/05/16 Lactobacillus Acidophilus [Bacid -] 1 each PO DAILY #7 capsule 01/05/16 Nifedipine ER [Procardia XL -] 30 mg PO DAILY #30 tab.er.24 01/05/16 Quetiapine Fumarate [Seroquel -] 25 mg PO BID #60 tablet 01/05/16 Family Disease History - Family Disease History Family Disease History: Other: Mother (kidney disease), Brother (CVA age 25; ( ETOH abuse)) Physical Exam Vital Signs: Vital Signs Temperature 97.9 F 05/08/16 13:52 Pulse Rate 88 05/08/16 13:52 Respiratory Rate 18 05/08/16 13:52 Blood Pressure 156/64 05/08/16 13:52 O2 Sat by Pulse Oximetry (%) 96 05/07/16 21:00 Labs: CBC, BMP 05/06/16 05:55 05/06/16 05:55 Assessment/Plan Called to see patient regarding skin condition. multiple excoriations over arms back and legs.Areas of scarring and postinflammatory hyperpigmentation due to chronic picking on the skin. No primary skin disease present. pruritis due to multiple underlying medical conditions including Diabetes , substance abuse and kidney disease. apply triamcinolone to affected areas and continue bacitracin to any open wounds or excoriations. If pruritis persists patient may require biopsy and or UVB light therapy as an outpatient.
[2016-05-08] MEDS: ACETAMINOPHEN 325 MG TABLET (FP) PO PRN (21:08)
[2016-05-08] MEDS: ATORVASTATIN CA 20 MG TABLET (FP) PO SCH (21:08)
[2016-05-08] MEDS: TRIAMCINOLONE ACET 0.025% CREAM 15 GM TUBE TP SCH (21:09)
[2016-05-09] MEDS: DOCUSATE SODIUM 100 MG CAPSULE (FP) PO SCH ×3 (06:10→21:46)
[2016-05-09] MEDS: HEPARIN NA (PORCINE) 5,000 UNITS/ML 1ML VIAL SQ SCH ×3 (06:10→21:47)
[2016-05-09] MEDS: INSULIN SLIDING SCALE (NOVOLOG) 1 VIAL SQ SCH (06:12)
[2016-05-09 07:05] LABS: BASOPHIL 0.8 % (0-2.0); MCHC 32.8 g/dl (32.0-36.0); MEAN CELL VOLUME 88.3 fl (80-96); MEAN PLT VOLUME 8.2 fl (7.5-11.1); NEUTROPHILS 44.5 % (42.8-82.8); PLATELET COUNT 125 K/MM3 (134-434); RDW 15.5 % (11.6-15.6); WHITE BLOOD COUNT 3.4 K/mm3 (4.0-10.0)
[2016-05-09 07:19] LABS: CALCIUM 7.7 mg/dL (8.5-10.1)
--- NOTE | 2016-05-09 08:25 | PN ---
Teaching Attending Note Name of Resident: Kim Henry ATTENDING PHYSICIAN STATEMENT I saw and evaluated the patient. I reviewed the resident's note and discussed the case with the resident. I agree with the resident's findings and plan as documented. Vital Signs Temperature 97.9 F 05/09/16 06:00 Pulse Rate 82 05/09/16 06:00 Respiratory Rate 18 05/09/16 06:00 Blood Pressure 148/64 05/09/16 06:00 O2 Sat by Pulse Oximetry (%) 96 05/08/16 21:00 CBCD WBC 3.4 K/mm3 (4.0-10.0) L D 05/09/16 05:35 RBC 2.80 M/mm3 (3.60-5.2) L 05/09/16 05:35 Hgb 8.1 GM/dL (10.7-15.3) L 05/09/16 05:35 Hct 24.7 % (32.4-45.2) L 05/09/16 05:35 MCV 88.3 fl (80-96) 05/09/16 05:35 MCHC 32.8 g/dl (32.0-36.0) 05/09/16 05:35 RDW 15.5 % (11.6-15.6) 05/09/16 05:35 Plt Count 125 K/MM3 (134-434) L 05/09/16 05:35 MPV 8.2 fl (7.5-11.1) 05/09/16 05:35 CMP Sodium 143 mmol/L (136-145) 05/09/16 05:35 Potassium 5.2 mmol/L (3.5-5.1) H 05/09/16 05:35 Chloride 116 mmol/L (98-107) H 05/09/16 05:35 Carbon Dioxide 21 mmol/L (21-32) 05/09/16 05:35 Anion Gap 6 (8-16) L 05/09/16 05:35 BUN 40 mg/dL (7-18) H 05/09/16 05:35 Creatinine 3.0 mg/dL (0.55-1.02) H 05/09/16 05:35 Creat Clearance w eGFR 13.82 (>60) 05/02/16 05:10 Random Glucose 91 mg/dL (74-106) 05/09/16 05:35 Calcium 7.7 mg/dL (8.5-10.1) L 05/09/16 05:35 Total Bilirubin 0.5 mg/dL (0.2-1.0) D 05/02/16 05:10 AST 21 U/L (15-37) D 05/02/16 05:10 ALT 13 U/L (12-78) 05/02/16 05:10 Alkaline Phosphatase 148 U/L (45-117) H 05/02/16 05:10 Total Protein 6.0 g/dl (6.4-8.2) L 05/02/16 05:10 Albumin 2.1 g/dl (3.4-5.0) L 05/02/16 05:10 CARDIAC ENZYMES Creatine Kinase 44 IU/L (26-192) 05/01/16 05:20 Troponin I 0.05 ng/ml (0.00-0.05) 05/01/16 05:20 Current Medications Generic Name Dose Route Start Last Admin Trade Name Freq PRN Reason Stop Dose Admin Acetaminophen 650 mg 05/02/16 17:14 05/08/16 21:08 Tylenol - PO 650 mg Q6H PRN Administration FEVER OR PAIN Aspirin 81 mg 05/02/16 10:00 05/08/16 11:09 Asa - PO 81 mg DAILY JESSY Administration Atorvastatin Calcium 20 mg 05/01/16 22:00 05/08/16 21:08 Lipitor - PO 20 mg HS JESSY Administration Bacitracin 1 applic 05/01/16 22:00 05/08/16 21:14 Bacitracin - TP 1 applic BID JESSY Administration Docusate Sodium 100 mg 05/03/16 14:00 05/09/16 06:10 Colace - PO 100 mg TID JESSY Administration Ferrous Sulfate 325 mg 05/08/16 13:45 05/08/16 21:08 Feosol - PO 325 mg BID JESSY Administration Folic Acid 1 mg 05/03/16 10:00 05/08/16 11:09 Folic Acid - PO 1 mg DAILY JESSY Administration Heparin Sodium (Porcine) 5,000 unit 05/01/16 22:00 05/09/16 06:10 Heparin - SQ 5,000 unit TID JESSY Administration Hydralazine HCl 25 mg 05/02/16 10:00 05/08/16 21:08 Apresoline - PO 25 mg BID JESSY Administration Insulin Aspart 1 vial 05/07/16 07:00 05/09/16 06:12 Novolog Vial Sliding Scale - SQ Not Given [facility] Protocol Multivitamins/Minerals/Vitamin C 1 tab 05/03/16 10:00 05/08/16 11:10 Tab-A-Vit - PO 1 tab DAILY JESSY Administration Nifedipine 90 mg 05/04/16 10:00 05/08/16 11:10 Procardia Xl - PO 90 mg DAILY JESSY Administration Polyethylene Glycol 17 gm 05/03/16 10:45 05/08/16 11:09 Miralax (For Daily Use) - PO 17 gm DAILY JESSY Administration Thiamine HCl 100 mg 05/03/16 10:00 05/08/16 11:10 Vitamin B1 - PO 100 mg DAILY JESSY Administration Triamcinolone Acetonide 1 gm 05/08/16 22:00 05/08/16 21:09 Aristocort 0.025% Cream - TP 1 applic BID JESSY Administration Home Medications Medication Instructions Recorded Meclizine HCl [Antivert -] 25 mg PO TID #21 tablet 08/17/13 Unobtainable Home Med List 0 dose .ROUTE UTDICT 08/17/13 Amlodipine Besylate [Norvasc -] 5 mg PO DAILY #30 tablet 08/20/13 Folic Acid - 1 mg PO DAILY #30 tablet 08/20/13 Metformin HCl [Glucophage -] 500 mg PO BID #60 tablet 08/20/13 Multivitamins [Multivit ([facility] 1 tab PO DAILY #30 tab 08/20/13 Formulary)] Pantoprazole Sodium [Protonix -] 40 mg PO DAILY #30 tablet.ec 08/20/13 Thiamine HCl [Vitamin B1 -] 100 mg PO DAILY #30 tablet 08/20/13 Calamine/Zinc Oxide [Qc Calamine 5 ml TP BID #177 ml 08/05/15 Lotion] Hydroxyzine HCl [Atarax -] 25 mg PO TID #21 tablet 08/05/15 Amox-Tr/K Cl [Augmentin 500-125mg 1 tab PO BID@0800,1730 #10 tablet 01/05/16 Tablet -] Clindamycin [Cleocin -] 300 mg PO Q6HPO #16 capsule 01/05/16 Docusate Sodium [Colace -] 100 mg PO BID #14 capsule 01/05/16 Ferrous Sulfate [Feosol] 325 mg PO TIDCM #90 ud 01/05/16 Hydroxyzine HCl [Atarax -] 25 mg PO Q6H PRN #20 tablet 01/05/16 Labetalol HCl [Normodyne -] 400 mg PO BID #120 tablet 01/05/16 Lactobacillus Acidophilus [Bacid -] 1 each PO DAILY #7 capsule 01/05/16 Nifedipine ER [Procardia XL -] 30 mg PO DAILY #30 tab.er.24 01/05/16 Quetiapine Fumarate [Seroquel -] 25 mg PO BID #60 tablet 01/05/16 Patient is feeling better. NO fever or chills, no shortness of breath. GENERAL: The patient is awake, alert, and fully oriented, in no acute distress. LUNGS: Breath sounds equal, clear to auscultation bilaterally, no wheezes, no crackles, no accessory muscle use. HEART: Regular rate and rhythm, S1, S2 without murmur, rub or gallop. ABDOMEN: Soft, nontender, nondistended, normoactive bowel sounds, no guarding, no rebound, no hepatosplenomegaly, no masses. EXTREMITIES: 2+ pulses, warm, well-perfused, no edema. Neuro: Ataxic gait improving ASSESSMENT AND PLAN: This is a 61-year-old woman with a history of type 2 DM, HTN, hyperlipidemia, alcohol abuse who presented with right hand and leg weakness. She was admitted for hypertensive emergency. # Possible left cerebral peduncle infarct with right-sided weakness on aspirin, Lipitor, continue PT 2x per day ; Repeat MRI of brain in 1-2 months Increased PT 2x per day. Gait is improving. Patient's insurance does not cover Rehab. # s/p Hypertensive emergency presented with SBP of 230-->148 today; resolved on Procardia and hydralazine # Hypertension; better controlled on Procardia, Hydralazine will continue # Acute kidney injury on CKD, stage 3 vs stage 4 ; Creatinine stable 3.2 baseline Cr.2.6, will check with Nephrology regarding Iron supplements. since having Legs cramps at times. As per associate creative director may need kidney biopsy however , patient needs to be off of asa for a week prior, therefore kidney Bx as an outpatient . # Abrasion and cellulitis of right 1st toe Completed antibiotics; on topical Bacitracin continue # Anemia, due to CKD s/p 1 unit PRBCs on this admission; Hemoglobin 8.5-->8.1 today on Iron supplement will continue. # Generalized pruritus ,off benadryl for now since she is lethargic; dermatology evaluation appreciated. Also Hydralazine can increase pruritis but for now will continue since her pruritus was prior to starting Hydralazine. As per Truck Terminal Manager ; to apply triamcinolone to affected areas and continue bacitracin to any open wounds or excoriations. If pruritis persists patient may require biopsy and or UVB light therapy as an outpatient as per wharfinger chief. # Hyperlipidemia on Lipitor # T2DM on Novolog sliding scale. Metformin on hold due to her kidney function # Positive AVIS ; rheumatology evaluation as an outpatient. # History of alcohol abuse Continue multivitamin, thiamine, folic acid # Right-sided abdominal pain resolved; RUQ US negative # s/p cellulitis of left toe; off antibiotic now Dvt Px: SCds Diet: Dysphagia chopped diet Waiting for placement.
--- NOTE | 2016-05-09 09:42 | PN ---
Progress Note, Physician Chief Complaint: Pt alert; feels better, though still with rided-sided lower thoracic pain on palpation or when turning. History of Present Illness: The patient is a 61 year old female with significant past medical history of hypertension, hyperlipidemia, and diabetes, who presents to the ED with 1 day of worsening right-sided weakness and left facial weakness. Patient reports she developed a headache yesterday and subsequently became dizzy with right-sided weakness and left facial weakness. She also reports slurred speech. She denies blurry vision, syncope, or numbness/tingling. The patient denies fever, chills, cough, SOB, chest pain, and palpitations. The patient denies abdominal pain, nausea, vomiting, and diarrhea. Allergies: NKDA Social History: Former ETOH abuse (quit 3 months ago); no tobacco or drug use reported. Past Surgical History: None reported PCP: None reported Brother (alcoholic) had CVA at age 25. - Current Medication List Current Medications: Active Medications Acetaminophen (Tylenol -) 650 mg PO Q6H PRN PRN Reason: FEVER OR PAIN Last Admin: 05/08/16 21:08 Dose: 650 mg Aspirin (Asa -) 81 mg PO DAILY [facility] Last Admin: 05/08/16 11:09 Dose: 81 mg Atorvastatin Calcium (Lipitor -) 20 mg PO HS [facility] Last Admin: 05/08/16 21:08 Dose: 20 mg Bacitracin (Bacitracin -) 1 applic TP BID [facility] Last Admin: 05/08/16 21:14 Dose: 1 applic Docusate Sodium (Colace -) 100 mg PO TID [facility] Last Admin: 05/09/16 06:10 Dose: 100 mg Ferrous Sulfate (Feosol -) 325 mg PO BID [facility] Last Admin: 05/08/16 21:08 Dose: 325 mg Folic Acid (Folic Acid -) 1 mg PO DAILY [facility] Last Admin: 05/08/16 11:09 Dose: 1 mg Heparin Sodium (Porcine) (Heparin -) 5,000 unit SQ TID [facility] Last Admin: 05/09/16 06:10 Dose: 5,000 unit Hydralazine HCl (Apresoline -) 25 mg PO BID [facility] Last Admin: 05/08/16 21:08 Dose: 25 mg Insulin Aspart (Novolog Vial Sliding Scale -) 1 vial SQ ACBK [facility] PRN Reason: Protocol Last Admin: 05/09/16 06:12 Dose: Not Given Multivitamins/Minerals/Vitamin C (Tab-A-Vit -) 1 tab PO DAILY [facility] Last Admin: 05/08/16 11:10 Dose: 1 tab Nifedipine (Procardia Xl -) 90 mg PO DAILY [facility] Last Admin: 05/08/16 11:10 Dose: 90 mg Polyethylene Glycol (Miralax (For Daily Use) -) 17 gm PO DAILY [facility] Last Admin: 05/08/16 11:09 Dose: 17 gm Thiamine HCl (Vitamin B1 -) 100 mg PO DAILY [facility] Last Admin: 05/08/16 11:10 Dose: 100 mg Triamcinolone Acetonide (Aristocort 0.025% Cream -) 1 gm TP BID [facility] Last Admin: 05/08/16 21:09 Dose: 1 applic - Objective Vital Signs: Vital Signs Temperature 97.9 F 05/09/16 06:00 Pulse Rate 82 05/09/16 06:00 Respiratory Rate 18 05/09/16 06:00 Blood Pressure 148/64 05/09/16 06:00 O2 Sat by Pulse Oximetry (%) 96 05/08/16 21:00 Constitutional: Yes: Calm Eyes: Yes: WNL HENT: Yes: WNL Neck: Yes: WNL Cardiovascular: Yes: Regular Rate and Rhythm Respiratory: Yes: Regular Gastrointestinal: Yes: Soft Musculoskeletal: Yes: Muscle Weakness, Other (right sided lower thoracic pain on palpation; no evident rash) Extremities: Yes: Cool Edema: No Peripheral Pulses WNL: No Peripheral Pulses: Left Doralis Pedis: 1+, Right Dorsalis Pedis: 1+ Integumentary: Yes: WNL Neurological: Yes: Alert, Oriented, Weakness Psychiatric: Yes: Alert, Oriented Labs: CBC, BMP 05/09/16 05:35 05/09/16 05:35 INR, PTT INR 0.97 (0.82-1.09) 04/30/16 06:30 Problem List - Problems (1) Alcohol abuse Assessment/Plan: pt says she stopped 3 months ago; Tox screen + for cocaine. (2) Cerebrovascular accident (CVA) Assessment/Plan: CT head: no acute or chronic pathology; however, has garbled speech, mild decreased right hand strength. MRI: subacute infarct vs lesion; contrast MRI suggested. Increase daily physical therapy (6) Hypertensive emergency Assessment/Plan: Pt often remains elevated. Would increase hydralazine to 50 mg bid, and add Imdur 30 mg daily. (8) Anemia Code(s): D64.9 - ANEMIA, UNSPECIFIED Qualifiers: Anemia type: unspecified type Qualified Code(s): D64.9 - Anemia, unspecified (10) Right-sided chest pain Assessment/Plan: right sided chest and abdominal pain. CT abdomen 04/30/16: no acute pathology; right pleural effusion. f/u clinically. Pain management. (11) Hyperkalemia Assessment/Plan: Kayelelate; f/u workup. Code(s): E87.5 - HYPERKALEMIA
[2016-05-09] MEDS: BACITRACIN 30 GM TUBE TOPICAL OINTMENT TP SCH ×2 (10:53→21:49)
[2016-05-09] MEDS: ASPIRIN 81 MG CHEWABLE TABLETS PO SCH (10:53)
[2016-05-09] MEDS: hydrALAZINE HCL 25 MG TABLET (FP) PO SCH ×2 (10:53→21:45)
[2016-05-09] MEDS: TRIAMCINOLONE ACET 0.025% CREAM 15 GM TUBE TP SCH ×2 (10:53→21:49)
[2016-05-09] MEDS: POLYETHYLENE GLYCOL 3350 119 GM BTL PO SCH (10:54)
[2016-05-09] MEDS: FOLIC ACID 1 MG TABLET (FP) PO SCH (10:54)
[2016-05-09] MEDS: FERROUS SO4 325 MG TABLET (FP) PO SCH ×2 (10:54→21:45)
[2016-05-09] MEDS: MULTIVITAMINS (DAILY MVI) TABLET (FP) PO SCH (10:54)
[2016-05-09] MEDS: NIFEdipine E.R. 90 MG TABLET (FP) PO SCH (10:54)
[2016-05-09] MEDS: THIAMINE HCL 100 MG TABLET (FP) PO SCH (10:54)
[2016-05-09] MEDS: ACETAMINOPHEN 325 MG TABLET (FP) PO PRN (11:04)
--- NOTE | 2016-05-09 12:03 | PN ---
Progress Note, CARRY IN WORKER - Note Progress Note: Selected Entries 05/08/16 05/08/16 05/08/16 02:00 06:00 13:52 Breakfast Supper Temperature 98.1 F 98.2 F 97.9 F 05/08/16 05/08/16 05/09/16 18:00 21:00 02:00 Breakfast Supper 100% Temperature 98.6 F 98.5 F 98.0 F 05/09/16 05/09/16 06:00 09:04 Breakfast 100% Supper Temperature 97.9 F Pt tolerationg modified diet. Pt still benefits from thickened liquids due to oral/pharyngeal dyscoordination, with responsive cough with thin liquid. Pending d/c to [facility] for rehabilitation.
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
--- NOTE | 2016-05-09 14:37 | PN ---
Progress Note, Physician History of Present Illness: Pt seen and examined at bedside. She is awake and appears comfortable. She denies chest pain or palpitations. - Current Medication List Current Medications: Active Medications Acetaminophen (Tylenol -) 650 mg PO Q6H PRN PRN Reason: FEVER OR PAIN Last Admin: 05/09/16 11:04 Dose: 650 mg Aspirin (Asa -) 81 mg PO DAILY [facility] Last Admin: 05/09/16 10:53 Dose: 81 mg Atorvastatin Calcium (Lipitor -) 20 mg PO HS [facility] Last Admin: 05/08/16 21:08 Dose: 20 mg Bacitracin (Bacitracin -) 1 applic TP BID [facility] Last Admin: 05/09/16 10:53 Dose: 1 applic Docusate Sodium (Colace -) 100 mg PO TID [facility] Last Admin: 05/09/16 06:10 Dose: 100 mg Ferrous Sulfate (Feosol -) 325 mg PO BID [facility] Last Admin: 05/09/16 10:54 Dose: 325 mg Folic Acid (Folic Acid -) 1 mg PO DAILY [facility] Last Admin: 05/09/16 10:54 Dose: 1 mg Heparin Sodium (Porcine) (Heparin -) 5,000 unit SQ TID [facility] Last Admin: 05/09/16 06:10 Dose: 5,000 unit Hydralazine HCl (Apresoline -) 25 mg PO BID [facility] Last Admin: 05/09/16 10:53 Dose: 25 mg Insulin Aspart (Novolog Vial Sliding Scale -) 1 vial SQ ACBK [facility] PRN Reason: Protocol Last Admin: 05/09/16 06:12 Dose: Not Given Multivitamins/Minerals/Vitamin C (Tab-A-Vit -) 1 tab PO DAILY [facility] Last Admin: 05/09/16 10:54 Dose: 1 tab Nifedipine (Procardia Xl -) 90 mg PO DAILY [facility] Last Admin: 05/09/16 10:54 Dose: 90 mg Polyethylene Glycol (Miralax (For Daily Use) -) 17 gm PO DAILY [facility] Last Admin: 05/09/16 10:54 Dose: 17 gm Thiamine HCl (Vitamin B1 -) 100 mg PO DAILY [facility] Last Admin: 05/09/16 10:54 Dose: 100 mg Triamcinolone Acetonide (Aristocort 0.025% Cream -) 1 gm TP BID [facility] Last Admin: 05/09/16 10:53 Dose: 1 applic - Objective Vital Signs: Vital Signs Temperature 98.1 F 05/09/16 14:00 Pulse Rate 82 05/09/16 14:00 Respiratory Rate 20 05/09/16 14:00 Blood Pressure 154/73 05/09/16 14:00 O2 Sat by Pulse Oximetry (%) 96 05/08/16 21:00 Constitutional: Yes: Calm Eyes: Yes: Conjunctiva Clear HENT: Yes: Atraumatic Neck: Yes: Supple Cardiovascular: Yes: S1, S2 Respiratory: Yes: CTA Bilaterally Gastrointestinal: Yes: Soft Genitourinary: Yes: WNL Musculoskeletal: Yes: WNL Edema: No Neurological: Yes: Oriented Psychiatric: Yes: Oriented Labs: CBC, BMP 05/09/16 05:35 05/09/16 05:35 INR, PTT INR 0.97 (0.82-1.09) 04/30/16 06:30 Assessment/Plan Current Medications Generic Name Dose Route Start Last Admin Trade Name Freq PRN Reason Stop Dose Admin Acetaminophen 650 mg 05/02/16 17:14 05/09/16 11:04 Tylenol - PO 650 mg Q6H PRN Administration FEVER OR PAIN Aspirin 81 mg 05/02/16 10:00 05/09/16 10:53 Asa - PO 81 mg DAILY JESSY Administration Atorvastatin Calcium 20 mg 05/01/16 22:00 05/08/16 21:08 Lipitor - PO 20 mg HS JESSY Administration Bacitracin 1 applic 05/01/16 22:00 05/09/16 10:53 Bacitracin - TP 1 applic BID JESSY Administration Docusate Sodium 100 mg 05/03/16 14:00 05/09/16 06:10 Colace - PO 100 mg TID JESSY Administration Ferrous Sulfate 325 mg 05/08/16 13:45 05/09/16 10:54 Feosol - PO 325 mg BID JESSY Administration Folic Acid 1 mg 05/03/16 10:00 05/09/16 10:54 Folic Acid - PO 1 mg DAILY JESSY Administration Heparin Sodium (Porcine) 5,000 unit 05/01/16 22:00 05/09/16 06:10 Heparin - SQ 5,000 unit TID JESSY Administration Hydralazine HCl 25 mg 05/02/16 10:00 05/09/16 10:53 Apresoline - PO 25 mg BID JESSY Administration Insulin Aspart 1 vial 05/07/16 07:00 05/09/16 06:12 Novolog Vial Sliding Scale - SQ Not Given ACBK JESSY Protocol Multivitamins/Minerals/Vitamin C 1 tab 05/03/16 10:00 05/09/16 10:54 Tab-A-Vit - PO 1 tab DAILY JESSY Administration Nifedipine 90 mg 05/04/16 10:00 05/09/16 10:54 Procardia Xl - PO 90 mg DAILY JESSY Administration Polyethylene Glycol 17 gm 05/03/16 10:45 05/09/16 10:54 Miralax (For Daily Use) - PO 17 gm DAILY JESSY Administration Thiamine HCl 100 mg 05/03/16 10:00 05/09/16 10:54 Vitamin B1 - PO 100 mg DAILY JESSY Administration Triamcinolone Acetonide 1 gm 05/08/16 22:00 05/09/16 10:53 Aristocort 0.025% Cream - TP 1 applic BID JESSY Administration Impression 1. GABY 2. likely CKD 3. hypertensive emergency 4. DM 5. hyperlipidemia 6. hx migraine 7. pleural effusion 8. CVA 9. positive cocaine in urine 10. positive milady 11. anemia 12. hyperkalemia Plan - renal function is improving - start low potassium diet as she is hyperkalemic today - cont iron supplements - will see pt in office - will need eval with rheum as well - cont PT/rehab Dr David
--- NOTE | 2016-05-09 15:09 | PN ---
Progress Note, Physician History of Present Illness: roger no new issues - Current Medication List Current Medications: Active Medications Acetaminophen (Tylenol -) 650 mg PO Q6H PRN PRN Reason: FEVER OR PAIN Last Admin: 05/09/16 11:04 Dose: 650 mg Aspirin (Asa -) 81 mg PO DAILY [facility] Last Admin: 05/09/16 10:53 Dose: 81 mg Atorvastatin Calcium (Lipitor -) 20 mg PO HS [facility] Last Admin: 05/08/16 21:08 Dose: 20 mg Bacitracin (Bacitracin -) 1 applic TP BID [facility] Last Admin: 05/09/16 10:53 Dose: 1 applic Docusate Sodium (Colace -) 100 mg PO TID [facility] Last Admin: 05/09/16 06:10 Dose: 100 mg Ferrous Sulfate (Feosol -) 325 mg PO BID [facility] Last Admin: 05/09/16 10:54 Dose: 325 mg Folic Acid (Folic Acid -) 1 mg PO DAILY [facility] Last Admin: 05/09/16 10:54 Dose: 1 mg Heparin Sodium (Porcine) (Heparin -) 5,000 unit SQ TID [facility] Last Admin: 05/09/16 06:10 Dose: 5,000 unit Hydralazine HCl (Apresoline -) 25 mg PO BID [facility] Last Admin: 05/09/16 10:53 Dose: 25 mg Insulin Aspart (Novolog Vial Sliding Scale -) 1 vial SQ ACBK [facility] PRN Reason: Protocol Last Admin: 05/09/16 06:12 Dose: Not Given Multivitamins/Minerals/Vitamin C (Tab-A-Vit -) 1 tab PO DAILY [facility] Last Admin: 05/09/16 10:54 Dose: 1 tab Nifedipine (Procardia Xl -) 90 mg PO DAILY [facility] Last Admin: 05/09/16 10:54 Dose: 90 mg Polyethylene Glycol (Miralax (For Daily Use) -) 17 gm PO DAILY [facility] Last Admin: 05/09/16 10:54 Dose: 17 gm Thiamine HCl (Vitamin B1 -) 100 mg PO DAILY [facility] Last Admin: 05/09/16 10:54 Dose: 100 mg Triamcinolone Acetonide (Aristocort 0.025% Cream -) 1 gm TP BID [facility] Last Admin: 05/09/16 10:53 Dose: 1 applic - Objective Vital Signs: Vital Signs Temperature 98.1 F 05/09/16 14:00 Pulse Rate 82 05/09/16 14:00 Respiratory Rate 20 05/09/16 14:00 Blood Pressure 154/73 05/09/16 14:00 O2 Sat by Pulse Oximetry (%) 96 05/09/16 09:00 Constitutional: Yes: No Distress, Calm Neck: Yes: Supple Cardiovascular: Yes: Other Respiratory: Yes: Regular, CTA Bilaterally Gastrointestinal: Yes: Normal Bowel Sounds, Soft Musculoskeletal: Yes: WNL Extremities: Yes: Other Neurological: Yes: Alert, Oriented Psychiatric: Yes: Alert Labs: CBC, BMP 05/09/16 05:35 05/09/16 05:35 INR, PTT INR 0.97 (0.82-1.09) 04/30/16 06:30 Assessment/Plan toe improving 1. GABY 2. likely CKD 3. hypertensive emergency 4. DM 5. hyperlipidemia 6. hx migraine 7. pleural effusion 8. r/o CVA 9. positive cocaine in urine lymphangitis cellulitis of the toe plan continue current mgmt off of abx patient doing well
[2016-05-09] MEDS: ATORVASTATIN CA 20 MG TABLET (FP) PO SCH (21:46)
[2016-05-10] MEDS: HEPARIN NA (PORCINE) 5,000 UNITS/ML 1ML VIAL SQ SCH (06:03)
[2016-05-10] MEDS: DOCUSATE SODIUM 100 MG CAPSULE (FP) PO SCH (06:03)
[2016-05-10] MEDS: INSULIN SLIDING SCALE (NOVOLOG) 1 VIAL SQ SCH (06:06)
[2016-05-10 07:38] VITALS: PULSE 85
[2016-05-10] MEDS: ASPIRIN 81 MG CHEWABLE TABLETS PO SCH (09:07)
[2016-05-10] MEDS: FERROUS SO4 325 MG TABLET (FP) PO SCH (09:07)
[2016-05-10] MEDS: NIFEdipine E.R. 90 MG TABLET (FP) PO SCH (09:07)
[2016-05-10] MEDS: THIAMINE HCL 100 MG TABLET (FP) PO SCH (09:07)
[2016-05-10] MEDS: POLYETHYLENE GLYCOL 3350 119 GM BTL PO SCH (09:07)
[2016-05-10] MEDS: hydrALAZINE HCL 25 MG TABLET (FP) PO SCH (09:07)
[2016-05-10] MEDS: MULTIVITAMINS (DAILY MVI) TABLET (FP) PO SCH (09:07)
[2016-05-10] MEDS: FOLIC ACID 1 MG TABLET (FP) PO SCH (09:07)
[2016-05-10] MEDS: BACITRACIN 30 GM TUBE TOPICAL OINTMENT TP SCH (09:10)
[2016-05-10] MEDS: TRIAMCINOLONE ACET 0.025% CREAM 15 GM TUBE TP SCH (09:10)
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
[2016-05-10 10:09] VITALS: BP 143/63; TEMP 98.2
--- NOTE | 2016-05-10 11:20 | PN ---
Teaching Attending Note Name of Resident: Kim Henry ATTENDING PHYSICIAN STATEMENT I saw and evaluated the patient. I reviewed the resident's note and discussed the case with the resident. I agree with the resident's findings and plan as documented. Vital Signs Temperature 98.2 F 05/10/16 09:00 Pulse Rate 85 05/10/16 09:00 Respiratory Rate 20 05/10/16 09:00 Blood Pressure 143/63 05/10/16 09:00 O2 Sat by Pulse Oximetry (%) 95 05/10/16 09:00 CBCD WBC 3.4 K/mm3 (4.0-10.0) L D 05/09/16 05:35 RBC 2.80 M/mm3 (3.60-5.2) L 05/09/16 05:35 Hgb 8.1 GM/dL (10.7-15.3) L 05/09/16 05:35 Hct 24.7 % (32.4-45.2) L 05/09/16 05:35 MCV 88.3 fl (80-96) 05/09/16 05:35 MCHC 32.8 g/dl (32.0-36.0) 05/09/16 05:35 RDW 15.5 % (11.6-15.6) 05/09/16 05:35 Plt Count 125 K/MM3 (134-434) L 05/09/16 05:35 MPV 8.2 fl (7.5-11.1) 05/09/16 05:35 CMP Sodium 143 mmol/L (136-145) 05/09/16 05:35 Potassium 5.2 mmol/L (3.5-5.1) H 05/09/16 05:35 Chloride 116 mmol/L (98-107) H 05/09/16 05:35 Carbon Dioxide 21 mmol/L (21-32) 05/09/16 05:35 Anion Gap 6 (8-16) L 05/09/16 05:35 BUN 40 mg/dL (7-18) H 05/09/16 05:35 Creatinine 3.0 mg/dL (0.55-1.02) H 05/09/16 05:35 Creat Clearance w eGFR 13.82 (>60) 05/02/16 05:10 Random Glucose 91 mg/dL (74-106) 05/09/16 05:35 Calcium 7.7 mg/dL (8.5-10.1) L 05/09/16 05:35 Total Bilirubin 0.5 mg/dL (0.2-1.0) D 05/02/16 05:10 AST 21 U/L (15-37) D 05/02/16 05:10 ALT 13 U/L (12-78) 05/02/16 05:10 Alkaline Phosphatase 148 U/L (45-117) H 05/02/16 05:10 Total Protein 6.0 g/dl (6.4-8.2) L 05/02/16 05:10 Albumin 2.1 g/dl (3.4-5.0) L 05/02/16 05:10 CARDIAC ENZYMES Creatine Kinase 44 IU/L (26-192) 05/01/16 05:20 Troponin I 0.05 ng/ml (0.00-0.05) 05/01/16 05:20 Home Medications Medication Instructions Recorded Metformin HCl [Glucophage -] 500 mg PO BID #60 tablet 08/20/13 Acetaminophen [Tylenol .Regular 650 mg PO Q6H PRN #0 tablet 05/10/16 Strength -] Aspirin [ASA -] 81 mg PO DAILY tab.chew 05/10/16 Atorvastatin Ca [Lipitor] 20 mg PO HS tablet 05/10/16 Bacitracin - [Bacitracin Topical 1 applic TP BID tube 05/10/16 Ointment -] Docusate Sodium [Colace -] 100 mg PO TID capsule 05/10/16 Ferrous Sulfate [Feosol] 325 mg PO BID ud 05/10/16 Folic Acid - 1 mg PO DAILY tablet 05/10/16 Hydralazine HCl [Apresoline -] 25 mg PO BID tablet 05/10/16 Multivitamins [Multivit ([facility] 1 tab PO DAILY tab 05/10/16 Formulary)] Nifedipine ER [Procardia XL -] 90 mg PO DAILY tab.er.24 05/10/16 Polyethylene Glycol 3350 [Miralax 17 gm PO DAILY bottle 05/10/16 119 gm Btl -] Thiamine HCl [Vitamin B1 -] 100 mg PO DAILY tablet 05/10/16 Triamcinolone 0.025% Cream 1 gm TP BID tube 05/10/16 [Aristocort 0.025% Cream -] ASSESSMENT AND PLAN: This is a 61-year-old woman with a history of type 2 DM, HTN, hyperlipidemia, alcohol abuse who presented with right hand and leg weakness. She was admitted for hypertensive emergency. # Possible left cerebral peduncle infarct with right-sided weakness on aspirin, Lipitor ; Repeat MRI of brain in 1-2 months Patient is going to [facility] for acute rehab. # s/p Hypertensive emergency presented with SBP of 230-->148---143 today; resolved on Procardia and hydralazine # Hypertension; better controlled on Procardia, Hydralazine will continue # Acute kidney injury on CKD, stage 3 vs stage 4 ; Creatinine stable 3.2 baseline Cr.2.6--3.0 today, Nephrology follow up with post discharge. will continue Iron supplements. As per day worker may need kidney biopsy however , patient needs to be off of asa for a week prior , therefore kidney Bx as an outpatient upon discharge from rehab. # Abrasion and cellulitis of right 1st toe Completed antibiotics; on topical Bacitracin continue # Anemia, due to CKD s/p 1 unit PRBCs on this admission; Hemoglobin 8.5-->8.1 today on Iron supplement will continue. # Generalized pruritus ,off benadryl for now since she is lethargic; dermatology evaluation appreciated. Also Hydralazine can increase pruritis but for now will continue since her pruritus was prior to starting Hydralazine. As per Director Of Dance ; to apply triamcinolone to affected areas and continue bacitracin to any open wounds or excoriations. If pruritis persists patient may require biopsy and or UVB light therapy as an outpatient as per boatswain's mate. # Hyperlipidemia on Lipitor # T2DM on Novolog sliding scale. Metformin on hold due to her kidney function # Positive AVIS ; rheumatology evaluation as an outpatient. # History of alcohol abuse Continue multivitamin, thiamine, folic acid # Right-sided abdominal pain resolved; RUQ US negative # s/p cellulitis of left toe resolved ; off antibiotic now Dvt Px: SCds Diet: Dysphagia chopped diet went for Rehab.
== END 2016-05-10 10:44 | DRG 199 ==
LOC: JER 06:13 → JERBED 09:59 → MERGE 09:59 → JICU 12:06 → J4S 05-03 13:10
PROVIDERS: ADMIT Internal Medicine; ATTEND Internal Medicine
PROC: 30233N1 Transfusion of Nonautologous Red Blood Cells into Peripheral Vein, Percutaneous Approach (ICD-10-PCS; principal; 2016-05-01)
DX: I16.1 Hypertensive emergency (principal); I63.8 Other cerebral infarction; R29.702 NIHSS score 2; E78.5 Hyperlipidemia, unspecified; E11.9 Type 2 diabetes mellitus without complications; R42 Dizziness and giddiness; J98.11 Atelectasis; N17.9 Acute kidney failure, unspecified; G43.809 Other migraine, not intractable, without status migrainosus; F14.10 Cocaine abuse, uncomplicated; L03.031 Cellulitis of right toe; N18.4 Chronic kidney disease, stage 4 (severe); F10.10 Alcohol abuse, uncomplicated; D63.8 Anemia in other chronic diseases classified elsewhere; I27.2 Other secondary pulmonary hypertension; F19.10 Other psychoactive substance abuse, uncomplicated; I69.351 Hemiplegia and hemiparesis following cerebral infarction affecting right dominant side; I89.1 Lymphangitis; J90 Pleural effusion, not elsewhere classified; R14.0 Abdominal distension (gaseous); S91.109A Unspecified open wound of unspecified toe(s) without damage to nail, initial encounter; S90.414A Abrasion, right lesser toe(s), initial encounter; X58.XXXA Exposure to other specified factors, initial encounter; Y93.89 Activity, other specified; Y92.89 Other specified places as the place of occurrence of the external cause; I12.9 Hypertensive chronic kidney disease with stage 1 through stage 4 chronic kidney disease, or unspecified chronic kidney disease; E87.5 Hyperkalemia; Z87.891 Personal history of nicotine dependence
CPT/HCPCS: 36415; 36430; 70450-TC; 70551-TC; 71010-TC; 73630-TC-RT; 74176-TC; 74230-TC; 76705-TC; 76775-TC; 76856-TC; 80048; 80053; 80061; 80307; 81003; 81015; 82436; 82465; 82550; 82570; 82728; 83036; 83516; 83520; 83540; 83550; 83718; 83721; 83735; 84100; 84133; 84300; 84443; 84466; 84478; 84484; 85025; 85027; 85610; 86038; 86225; 86256; 86704; 86706; 86708; 86850; 86900; 86901; 86922; 87340; 90732; 92611-GN; 93005; 93010; 93306-TC; 93880-TC; 93976; 97116-GP; 97162-PG; 99285-25; G0009; J1644; P9038; P9058